=== PATIENT | male | born 1985 | race Caucasian/White ===

== ENCOUNTER 2020-07-08 20:37 | Emergency (ER) | payer OTHER, SELFPAY ==
[2020-07-08 21:06] VITALS: BP 157/91; PULSE 106; RESP 18; TEMP 37.1; O2SAT 99; BMI 38.5
[2020-07-08 21:39] LABS: MANUAL DIFF FLAG NO
[2020-07-08 21:40] LABS: Basophils Absolute Auto 0.1 X10*3/uL (0.0-0.2); Basophils Percent Auto 0.6 % (0-2); Eosinophils Absolute Auto 0.5 X10*3/uL (0.0-0.4); Eosinophils Percent Auto 4.5 % (0-4); Hematocrit 46.3 % (42-52); Imm Gran Abs Auto 0.05 X10*3/uL (0.00-0.03); Imm Gran Pct Auto 0.5 % (0.0-0.4); Lymphocytes Absolute Auto 2.5 X10*3/uL (1.2-4.9); Lymphocytes Percent Auto 24.6 % (20-40); Mean Corpuscular HGB Conc 32.4 g/dl (31.0-36.0); Mean Corpuscular Hemoglobin 27.7 pg (27.0-33.0); Mean Corpuscular Volume 85.4 fL (80-98); Mean Platelet Volume 9.4 fL (9.4-12.4); Monocytes Absolute Auto 0.7 X10*3/uL (0.1-1.2); Monocytes Percent Auto 7.1 % (2-11); Neutrophils Absolute Auto 6.3 X10*3/uL (2.0-8.3); Neutrophils Percent Auto 62.7 % (45-73); Platelet Count 401 X10*3/uL (160-400); Red Blood Count 5.42 X10*6/uL (4.60-5.80); Red Cell Distribution Width 13.3 % (11.0-16.0); White Blood Count 10.1 X10*3/uL (4.8-10.8)
[2020-07-08 21:59] LABS: Anion Gap 16 (12-20); Blood Urea Nitrogen 12 mg/dL (9-16); Calcium 9.3 mg/dL (8.4-10.2); Carbon Dioxide 23 mmol/L (22-29); Chloride 101 mmol/L (96-108); Creatinine Clr Calc Pharmacy 191.5; Estimated Glomerular Filt Rate > 60; Glucose Random 103 mg/dL (60-115); Potassium 4.2 mmol/L (3.3-5.1); Sodium 136 mmol/L (135-145)
[2020-07-08 22:02] VITALS: BP 164/100; PULSE 109; RESP 16; TEMP 36.8; O2SAT 96
--- NOTE | 2020-07-08 22:25 | ED.SKABFB ---
HPI - Skin/Abscess/Foreign Bdy General Chief complaint: Skin/Abscess/Foreign Body Stated complaint: ABSCESS? Source: patient Mode of arrival: ambulatory Limitations: no limitations History of Present Illness HPI narrative: 34-year-old male with no significant past medical history presents with a growth on the back of his neck. States is growth started approximately 2 and half to 3 weeks ago, is painful, and bleeds. He does not report any trauma, wounds, and has not had any skin problems. MD complaint: lesion Onset (ago): week(s) (Approximately 3 weeks) Tetanus up to date: yes Location: neck Severity: mild Quality: burning Pain Consistency: constant Exacerbating factors: none Associated symptoms: denies other symptoms Treatments prior to arrival: bandages Related Data Allergies Allergy/AdvReac Type Severity Reaction Status Date / Time No Known Allergies Allergy Verified 07/08/20 21:06 Review of Systems Review of Systems: Constitutional: No Fever, No Chills ENT/Mouth: No Ear Pain, No Hoarseness, No sore throat Eyes: No Eye Pain, No Swelling, No Redness, No Foreign Body Cardiovascular: No Chest Pain, No SOB Respiratory: No Cough, No Dyspnea Gastrointestinal: No Nausea, No Vomiting, No Diarrhea, No abdominal Pain Genitourinary: No Dysuria, No Hematuria Musculoskeletal: No joint pain, No Myalgias, No Joint Swelling Skin: Positive skin lesion to his neck, No Skin lacerations, No rash Neuro: No Weakness, No Numbness, No Paresthesias, No Loss of Consciousness, No Dizziness, No Headache Psych: No Anxiety/Panic, No Depression Heme/Lymph: no easy bruising, no Lymphadenopathy Endocrine: No Polyuria, No Polydipsia Yes all other systems are reviewed and are negative [facility] Past Medical History Attestation statement: The following information was validated with the patient. Source: old records reviewed Medical History ADHD Allergies Social History Social History Smoking Status: Current some day smoker Use of substances other than those prescribed or required for medical reasons: No Advance Directives: No Physical Exam Vital Signs: Vital Signs: Last Vital Signs Temp 98.3 F 07/08/20 22:02 Pulse 109 H 07/08/20 22:02 Resp 16 07/08/20 22:02 BP 164/100 H 07/08/20 22:02 Pulse Ox 96 07/08/20 22:02 Body Mass Index 38.5 Appearance: Alert. Oriented X3. No acute distress. Eyes: Pupils equal, round and reactive to light. ENT: Pharynx normal. Neck: Normal inspection. Neck supple. CVS: Normal heart rate and rhythm. Pulses normal. Respiratory: No respiratory distress. Breath sounds normal. Abdomen: Soft and nontender. Skin: Skin warm and dry. Normal skin color. Normal skin turgor. Extremities: No lower extremity edema. Neuro: No motor deficit. No sensory deficit. Course Course Course Narrative: 34-year-old male presents with a lesion to the back of his neck. This is a pedunculated growth, unknown what this could be. Will referred to surgery-dermatology. I did have Dr. Hernandez assess this wound, and he agrees with my plan not to remove this. There is no drainable abscess, and patient is afebrile no indication of infection. Patient verbalized understanding of and agrees to plan of care discharge home. MDM - Skin/Abscess/Foreign Bdy MDM Narrative Medical decision making narrative: Skin lesion Medical Records Attestation: I reviewed the patient's medical records. Lab Data Attestation: I reviewed the patient's lab results. Result diagrams: 07/08/20 21:33 07/08/20 21:33 Labs: Lab Results 07/08/20 07/08/20 Range/Units 21:33 21:33 WBC 10.1 (4.8-10.8) X10*3/uL RBC 5.42 (4.60-5.80) X10*6/uL Hgb 15.0 (14.0-18.0) g/dl Hct 46.3 (42-52) % MCV 85.4 (80-98) fL MCH 27.7 (27.0-33.0) pg MCHC 32.4 (31.0-36.0) g/dl RDW 13.3 (11.0-16.0) % Plt Count 401 H (160-400) X10*3/uL MPV 9.4 (9.4-12.4) fL Immature Gran % (Auto) 0.5 H (0.0-0.4) % Neut % (Auto) 62.7 (45-73) % Lymph % (Auto) 24.6 (20-40) % Miller % (Auto) 7.1 (2-11) % Eos % (Auto) 4.5 H (0-4) % Baso % (Auto) 0.6 (0-2) % Lymph # (Auto) 2.5 (1.2-4.9) X10*3/uL Miller # (Auto) 0.7 (0.1-1.2) X10*3/uL Eos # (Auto) 0.5 H (0.0-0.4) X10*3/uL Baso # (Auto) 0.1 (0.0-0.2) X10*3/uL Abs Immat Gran (auto) 0.05 H (0.00-0.03) X10*3/uL Absolute Neuts (auto) 6.3 (2.0-8.3) X10*3/uL Absolute Nucleated RBC 0.000 (0.0-0.012) X10*3/uL Nucleated RBC % (auto) 0.0 (0.0-0.2) /100WBC Sodium 136 (135-145) mmol/L Potassium 4.2 (3.3-5.1) mmol/L Chloride 101 (96-108) mmol/L Carbon Dioxide 23 (22-29) mmol/L Anion Gap 16 (12-20) BUN 12 (9-16) mg/dL Creatinine 0.79 (0.5-1.4) mg/dL Estim Creat Clear Calc 191.5 Estimated GFR > 60 Random Glucose 103 (60-115) mg/dL Calcium 9.3 (8.4-10.2) mg/dL Discharge Plan Discharge Clinical Impression: Skin abnormality Patient Disposition: Home, Self-Care Instructions: Skin Pseudocyst (ED), Acute Wounds (ED) Additional Instructions: You were evaluated for a wound to the back of your neck. You must follow-up with surgery Dr. Pro. Please keep the wound covered. Thank you for choosing this emergency department for evaluation. Please follow-up with primary care physician as needed. Return to the emergency department for any new, concerning, or worsening symptoms. Referrals: Jay Pro MD [Physician] - 2 days (Neck lesion) Interventions: ED Discharge Assessment Last Done: 07/08/20 23:15 Discharge Date/Time: 07/08/20 23:15
== END 2020-07-08 23:15 | disposition home or self-care (01) ==
PROVIDERS: Emergency Provider Emergency Medicine Emergency Medical Services; PCP Family Medicine
DX: L02.11 Cutaneous abscess of neck (principal); M54.2 Cervicalgia
CPT/HCPCS: 36415; 80048; 85025; 99283; 99284

== ENCOUNTER 2020-07-13 11:26 | Outpatient (REF) | payer OTHER, SELFPAY | END 2020-07-13 11:27 | disposition home or self-care (01) | LOC: HO.LNP 11:26 | PROVIDERS: PCP Family Medicine; Visit Provider Surgery | DX: L98.9 Disorder of the skin and subcutaneous tissue, unspecified (principal) | CPT/HCPCS: 11422; 99202 ==

== ENCOUNTER 2020-07-14 15:10 | Outpatient (REF) | payer OTHER, SELFPAY | END 2020-07-14 15:11 | disposition home or self-care (01) | LOC: HO.LAB 15:10 | PROVIDERS: Visit Provider Surgery | DX: L98.9 Disorder of the skin and subcutaneous tissue, unspecified (principal) | CPT/HCPCS: 88305 ==

== ENCOUNTER → 2020-07-28 15:27 | Outpatient (BNVA) | payer OTHER, SELFPAY | PROVIDERS: PCP Physician Assistant; Visit Provider Surgery ==

== ENCOUNTER 2020-08-13 09:32 | Outpatient (REF) | payer OTHER, SELFPAY ==
[2020-08-13 10:23] LABS: Hematocrit 48.9 % (42-52); Hemoglobin 15.8 g/dl (14.0-18.0); Mean Corpuscular HGB Conc 32.3 g/dl (31.0-36.0); Mean Corpuscular Hemoglobin 27.4 pg (27.0-33.0); Mean Corpuscular Volume 84.9 fL (80-98); Platelet Count 360 X10*3/uL (160-400); Red Blood Count 5.76 X10*6/uL (4.60-5.80); Red Cell Distribution Width 13.3 % (11.0-16.0); White Blood Count 6.6 X10*3/uL (4.8-10.8)
[2020-08-13 10:24] LABS: Estimated Average Glucose 105 mg/dL; Hemoglobin A1c % 5.3 %
[2020-08-13 10:58] LABS: Alanine Aminotransferase 60 U/L (0-40); Albumin Level 4.8 g/dL (3.5-5.0); Alkaline Phosphatase 93 U/L (39-117); Anion Gap 15 (12-20); Aspartate Amino Transferase 31 U/L (5-37); Bilirubin Total 0.9 mg/dL (0.0-1.0); Blood Urea Nitrogen 10 mg/dL (9-16); Calcium 9.9 mg/dL (8.4-10.2); Carbon Dioxide 25 mmol/L (22-29); Chloride 102 mmol/L (96-108); Cholesterol 185 mg/dL; Estimated Glomerular Filt Rate > 60; Glucose Fasting 89 mg/dL (60-99); HDL Cholesterol 37 mg/dL; LDL Cholesterol Calculated 127 mg/dl; Potassium 4.4 mmol/L (3.3-5.1); Sodium 138 mmol/L (135-145); Total Protein 8.1 g/dL (6.5-8.0); Triglycerides 107 mg/dL
== END 2020-08-13 09:33 | disposition home or self-care (01) ==
LOC: HO.LAB 09:32
PROVIDERS: PCP Physician Assistant; Visit Provider Physician Assistant
DX: Z13.220 Encounter for screening for lipoid disorders (principal); Z13.29 Encounter for screening for other suspected endocrine disorder; I10 Essential (primary) hypertension
CPT/HCPCS: 36415; 80053; 80061; 83036; 84443; 85027

== ENCOUNTER 2022-02-10 07:55 | Outpatient (REF) | payer OTHER, SELFPAY ==
[2022-02-10 08:15] LABS: Hematocrit 48.3 % (42.0-52.0); Hemoglobin 15.4 g/dl (14.0-18.0); Mean Corpuscular HGB Conc 31.9 g/dl (31.0-36.0); Mean Corpuscular Hemoglobin 27.5 pg (27.0-33.0); Mean Corpuscular Volume 86.1 fL (80.0-98.0); Mean Platelet Volume 9.3 fL (9.4-12.4); Platelet Count 342 X10*3/uL (160-400); Red Blood Count 5.61 X10*6/uL (4.60-5.80); White Blood Count 7.1 X10*3/uL (4.8-10.8)
[2022-02-10 08:38] LABS: Alanine Aminotransferase 36 U/L (0-40); Albumin Level 4.6 g/dL (3.5-5.0); Alkaline Phosphatase 99 U/L (39-117); Anion Gap 16 (12-20); Aspartate Amino Transferase 23 U/L (5-37); Bilirubin Direct 0.2 mg/dL (0.0-0.5); Bilirubin Total 0.4 mg/dL (0.0-1.0); Blood Urea Nitrogen 13 mg/dL (9-16); Calcium 9.5 mg/dL (8.4-10.2); Carbon Dioxide 25 mmol/L (22-29); Chloride 103 mmol/L (96-108); Cholesterol 230 mg/dL; Estimated Glomerular Filt Rate > 60; Glucose Random 92 mg/dL (60-115); HDL Cholesterol 36 mg/dL; LDL Cholesterol Calculated 154 mg/dl; Potassium 4.4 mmol/L (3.3-5.1); Sodium 140 mmol/L (135-145); Triglycerides 204 mg/dL
== END 2022-02-10 07:56 | disposition home or self-care (01) ==
LOC: HO.LAB 07:55
PROVIDERS: PCP Physician Assistant; Visit Provider Internal Medicine
DX: E66.01 Morbid (severe) obesity due to excess calories (principal); F32.9 Major depressive disorder, single episode, unspecified; I10 Essential (primary) hypertension
CPT/HCPCS: 36415; 80048; 80061; 80076; 84443; 85027

== ENCOUNTER 2022-11-09 10:33 | Outpatient (REF) | payer OTHER, SELFPAY | END 2022-11-09 10:34 | disposition home or self-care (01) | LOC: HO.HAP 10:33 | PROVIDERS: Visit Provider Physician Assistant | DX: Z46.1 Encounter for fitting and adjustment of hearing aid (principal); H90.3 Sensorineural hearing loss, bilateral | CPT/HCPCS: 92591 ==

== ENCOUNTER 2022-11-30 10:47 | Outpatient (REF) | payer OTHER, SELFPAY | END 2022-11-30 10:48 | disposition home or self-care (01) | LOC: HO.HAP 10:47 | PROVIDERS: Visit Provider Physician Assistant | DX: Z46.1 Encounter for fitting and adjustment of hearing aid (principal); H90.3 Sensorineural hearing loss, bilateral | CPT/HCPCS: 92595; V5011; V5020; V5261 ==

== ENCOUNTER 2023-05-22 08:50 | Outpatient (AMB) | payer OTHER, SELFPAY ==
[2023-05-22 08:56] VITALS: BP 124/76; PULSE 92; O2SAT 98; BMI 39.8
--- NOTE | 2023-05-22 08:56 | A.OFFPC_ITS ---
Vital Signs 05/22/23 08:56 Height 6 ft 2 in Weight 310 lb BMI 39.8 BP 124/76 Blood Pressure Location Lt brachial Position Sitting Pulse 92 Pulse Source Pulse Oximeter Pulse Oximetry (%) 98 Oxygen Delivery Method Room Air Intake Visit Reasons: f/u Hiv Prevention Specialist Required: No Rack Loader: Not Required per policy Accompanied by: Self / Same As Patient Allergies No Known Allergies Allergy (Verified 05/22/23 09:14) Medication List - Last Reconciled 05/22/23 by Erasmo Carson PA-C acetaminophen ER (Tylenol 8 Hour) 650 mg PO Q12H PRN Advair Diskus 100-50 mcg/dose (fluticasone propion-salmeterol) 1 inh inhalation BID NS albuterol sulfate 90 mcg/actuation (Ventolin HFA) 2 puffs inhalation Q4-6H PRN 30 days albuterol sulfate 0.63 mg (3 mL) inhalation QID PRN bupropion HCl 150 mg PO DAILY buspirone 10 mg PO TID cetirizine 10 mg PO DAILY PRN cholecalciferol (vitamin D3) 125 mcg PO DAILY clonidine HCl 0.1 mg PO .PRN fluoxetine 30 mg (1.5 x 20 mg) PO DAILY fluticasone propionate 50 mcg/actuation 1 spray intranasal DAILY 30 days folic acid 1 mg PO DAILY 90 days hydroxyzine HCl 100 mg (2 x 50 mg) PO ONCE PRN 30 days ibuprofen 400 mg PO Q8H melatonin 5 mg PO BEDTIME PRN montelukast (Singulair) 10 mg PO DAILY 90 days quetiapine 200 mg PO BID quetiapine 100 mg PO BEDTIME sennosides-docusate sodium 8.6-50 mg (Senna Plus) 1 tab-cap PO BEDTIME PRN 90 days simvastatin 10 mg PO DAILY Ventolin HFA 90 mcg/actuation (albuterol sulfate) 1 inh inhalation QID 30 days NS Tobacco use date assessed: 05/22/23 Dental Screening Dental Screen Date: 05/22/23 Did you have a dental visit in the last 12 months?: No Did you have a dental problem in the last 6 months where you did not have access to dental care?: No Was dental information given to patient?: Patient has dentist HPI f/u HPI Details Patient is a 37-year-old male here today for a follow-up visit.? . Patient has a past medical history significant for ADHD, PTSD, anxiety, hyperlipidemia, allergic rhinitis. .. PTSD: Is seeing a psyciatrist Dr. Anguiano home is managing his mental health medications. Has gained significant amount of weight since being on antipsychotic medication ?. HAs a nurse coming to his home and gives him his medication. . . Obesity: Patient does understand his BMI is 30 and will work on being more physically active and adapting to better eating habits to reduce his weight. .. Hyperlipidemia: Continues on low-dose statin therapy without any side effect. Will recheck his fasting lipid panel to assure appropriate total cholesterol and LDL .. Asthma: He feels his asthma is fairly well controlled though still has shortness of breath and cough worse during changes of seasons. He is now seeing ENT specialist in is doing allergy injections. Of note he has been found to have sensorineural hearing loss and now has bilateral hearing aids .. Tobacco dependency: He reports he has cut down his cigarette smoking down to 5- 10 cigarettes per day. He does understand he needs to quit smoking. He he has access to nicotine patches and gum at his respite care and is considering starting. [facility] Medical History Class 2 severe obesity with body mass index (BMI) of 35 to 39.9 with serious comorbidity Essential hypertension Major depression Skin lesion of neck Allergies ADHD Family History Father Heart disease Social History Housing: Other (Program home) Alcohol intake: current Alcohol intake frequency: a few times a month Alcohol type: beer Patient Tobacco Use Status: Current everyday Tobacco user Tobacco use type: Cigarette e-Cigarette/Vaping Use: Never Used Current occupational status: unemployed Current occupation: unemployed Cognitive needs: No Hearing needs: No Vision needs: No Questionnaire PHQ-9 Over the last 2 weeks, how often have you been bothered by any of the following problems? 1. Little interest or pleasure in doing things: not at all 2. Feeling down, depressed, or hopeless: not at all 3. Trouble falling or staying asleep, or sleeping too much: not at all 4. Feeling tired or having little energy: not at all 5. Poor appetite or overeating: not at all 6. Feeling bad about yourself - or that you are a failure or have let yourself or your family down: not at all 7. Trouble concentrating on things, such as reading the newspaper or watching television: not at all 8. Moving or speaking so slowly that other people could have noticed. Or the opposite - being so fidgety or restless that you have been moving around a lot more than usual: not at all 9. Thoughts that you would be better off or of hurting yourself in some way: not at all Total score: 0 Depression Screening Interpretation: Negative Depression Screening Done: Yes 20410 - PHQ-9 Billing: Yes Source: Developed by Drs. Joon Castillo, Clau Mccullough, Ruben Barfield and colleagues, with an educational dwayne from [employer]. Thrive Questionnaire Date Thrive assessed: 05/22/23 I am a: Patient What is your living situation today?: I have a steady place to live Within the past 12 months, did the food you bought not last and you didn't have the money to get more?: Never true Within the past 12 months, did you worry whether your food would run out before you got money to buy more?: Never true Do you have trouble paying for medicines?: No Do you have trouble getting transportation to medical appointments?: No Do you have trouble paying your heating and electricity bill?: No Do you have trouble taking care of your child, family member or friend?: No Do you have trouble with day-to-day activities such as bathing, preparing meals, shopping, managing finances, etc.?: No Are you currently unemployed and looking for a job?: No Are you interested in more education?: No THRIVE Score: 0 AUDIT C Alcohol Use Questionnaire (AUDIT-C) 1. How often do you have a drink containing alcohol?: Monthly or less (0) 2. How many drinks containing alcohol do you have on a typical day when you are drinking?: 1 or 2 3. How often do you have six or more drinks on one occasion?: Never Total Score: 1 COLIN-7 AMB Questionnaire COLIN-7 Date COLIN - 7 assessed: 05/22/23 Feeling nervous, anxious, or on edge: 0 = Not at all Not being able to stop or control worryin = Several days Worrying too much about different things: 1 = Several days Trouble relaxin = Not at all Being so restless that it is hard to sit still: 0 = Not at all Becoming easily annoyed or irritable: 0 = Not at all Feeling afraid as if something awful might happen: 0 = Not at all Total COLIN-7 score (0-4 normal; 5-9 mild; 10-14 moderate; 15-21 severe): 2 Source: Developed by Drs. Joon Castillo, Clau Mccullough, Ruben Barfield and colleagues, with an educational dwayne from [employer]. COLIN-7 Assessment Billing COLIN-7 Assessment Tool: COLIN-7 Assessment 64189 ACT Questionnaire In the past 4 weeks, how much of the time did your asthma keep you from getting as much done at work, school or at home?: None of the time During the past 4 weeks, how often have you had shortness of breath?: Not at all During the past 4 weeks, how often did your asthma symptoms wake you up at night or earlier than usual in the morning?: Not at all During the past 4 weeks, how often have you had to use your rescue inhaler or nebulizer medication?: Not at all How would you rate your asthma control during the past 4 weeks?: Completely controlled ACT Interpretation: Negative Score: 25 Review of Systems Const Denies headache(s) Eyes Denies loss of vision ENT Denies vertigo, Denies dizziness, Denies headache(s) and Denies sore throat Card Denies chest pain, Denies leg edema and Denies lightheadedness Resp Denies cough, Denies hemoptysis and Denies wheezing GI Denies abdominal pain, Denies melena, Denies constipation, Denies diarrhea and Denies vomiting Denies dysuria, Denies urinary frequency and Denies urinary urgency Musc Denies arthralgias, Denies joint swelling, Denies numbness and Denies tingling Neuro Denies Abnormal speech present, Denies behavioral changes, Denies vertigo, Denies dizziness, Denies headache(s), Denies loss of vision, Denies memory loss, Denies numbness and Denies tingling Psych Denies anxiety, Denies behavioral changes, Denies depression, Denies memory loss and Denies panic attacks Jacob/Lymph Denies easy bleeding and Denies easy bruising Aller/Immun Denies wheezing Physical exam (Primary Care) Vital Signs: Last Vital Signs Pulse 92 05/22/23 08:56 BP 124/76 05/22/23 08:56 Pulse Ox 98 05/22/23 08:56 Oxygen Delivery Method Room Air 05/22/23 08:56 BMI result Body Mass Index 39.8 BMI Assessment/Plan discussion: High Tobacco/Smoking Status: Tobacco use Status Tobacco use date assessed 05/22/23 05/22/23 08:57 Patient Tobacco Use Status Current everyday Tobacco 05/22/23 08:57 Tobacco use type Cigarette 05/22/23 08:57 e-Cigarette/Vaping Use Never Used 05/22/23 08:57 Are you ready to quit: Yes Tobacco cessation counseling provided: Yes Items discussed: Nicotine replacement Relapse Prevention: discussed the importance of a supportive environment, discussed negative mood or depression after quitting, weight gain after smoking is common and discussed dietary, exercise and/or lifestyle changes Number of minutes spent counselin CPT code: 02486 - 4-10 Minutes PHQ-9: PHQ-9 Score PHQ-9: Total score 0 05/22/23 08:57 Depression Screening Interpretation: Negative Thrive Assessment: Date of Thrive Assessment Date Thrive assessed 05/22/23 05/22/23 08:57 Const General: healthy appearing, no acute distress, alert and awake Nutritional Appearance: well nourished Orientation/consciousness: oriented to person, oriented to place and oriented to time HENMT Ears: TM's normal bilaterally General nose exam: Normal nasal mucous membranes and turbinates present Eyes Conjunctivae: conjunctivae normal Sclerae: sclerae normal Pupils: Equal, round and reactive pupils present Neck Neck: Yes no lymphadenopathy and Yes no JVD Thyroid: Thyroid normal Carotids: no bruits Resp Effort & Inspection: normal respiratory effort and not tachypneic Auscultation: no crackles, no rales, no rhonchi and no wheezes Cardio Rate: regular rate Rhythm: regular rhythm Heart sounds: no murmurs and normal S1 and S2 GI Palpation (GI): Soft to palpation, nontender, no hepatomegaly and no splenomegaly Auscultation: normal bowel sounds Skin General skin exam: no rashes or lesions noted and dry skin Neuro General: oriented to person, oriented to place and oriented to time Cranial nerves: Yes Equal, round and reactive pupils present Speech: No Abnormal speech present Gait exam (Neuro): Normal gait present Motor exam (neuro): no tremor noted Extrem Right upper extremity: full ROM Left upper extremity: full ROM Right lower extremity: full ROM; no edema Left lower extremity: full ROM; no edema Psych Mental Status: mental status grossly normal Speech and movement: Normal speech and movement present Affect: normal affect Attitude: cooperative Thought process: Normal thought process present Assessment and Plan Assessment & Plan (1) HLD (hyperlipidemia): Code(s): E78.5 - Hyperlipidemia, unspecified Qualifiers: Hyperlipidemia type: mixed hyperlipidemia Qualified Code(s): E78.2 - Mixed hyperlipidemia Plan: Continue on simvastatin 10 mg daily. Will patient's fasting lipid panel to assure appropriate total cholesterol and LDL. Goal LDL to be below 130 (2) Asthma: Code(s): J45.909 - Unspecified asthma, uncomplicated Qualifiers: Asthma severity: moderate Asthma persistence: persistent Asthma complication type: uncomplicated Qualified Code(s): J45.40 - Moderate persistent asthma, uncomplicated Plan: Albuterol inhaler and nebulizers refilled. Now followed by an food service director and getting allergy injections. Singular 10 mg daily prescribed. Follow-up with pulmonology in September. (3) Major depression: Code(s): F32.9 - Major depressive disorder, single episode, unspecified Qualifiers: Major depression recurrence: recurrent Active/Remission status: currently active Major depression episode severity: moderate Qualified Code(s): F33.1 - Major depressive disorder, recurrent, moderate Plan: Continue to follow with psychiatry (Dr. Anguiano). He feels his mental health is stable (4) Obese: Code(s): E66.9 - Obesity, unspecified Qualifiers: Obesity type: due to excess calories Obesity classification: adult class 2 (BMI 35 - 39.9) Serious obesity comorbidity presence: without serious comorbidity Body mass index: BMI 36.0-36.9 Qualified Code(s): E66.09 - Other obesity due to excess calories; Z68.36 - Body mass index [BMI] 36.0-36.9, adult Plan: Patient does understand his BMI is well over 30 will work on trying to be more physically active and adapting to better eating habits to reduce his weight (5) Tobacco dependence: Code(s): F17.200 - Nicotine dependence, unspecified, uncomplicated Plan: Patient does understand he needs to quit smoking. He is interested in nicotine gum to help him quit. Orders: Orders Lipid Panel Today E78.2 - Mixed hyperlipidemia Microalbumin, Random (w Creat) Today I10 - Essential (primary) hypertension Comprehensive [place]. Panel Fast Today E78.2 - Mixed hyperlipidemia Complete Blood Count no Diff Today I10 - Essential (primary) hypertension Medications: New nicotine (polacrilex) 2 mg buccal Q2H 15 days PRN 110 ea 1RF nicotine cravings F17.200 - Nicotine dependence, unspecified, uncomplicated Coding Level of Care Code Est Pt Level 4 (50357) Diagnoses Mixed hyperlipidemia E78.2 Hyperlipidemia type: mixed hyperlipidemia Moderate persistent asthma without complication J45.40 Asthma severity: moderate Asthma persistence: persistent Asthma complication type: uncomplicated Moderate episode of recurrent major depressive disorder F33.1 Major depression recurrence: recurrent Active/Remission status: currently active Major depression episode severity: moderate Class 2 obesity due to excess calories without serious comorbidity with body mass index (BMI) of 36.0 to 36.9 in adult E66.09; Z68.36 Obesity type: due to excess calories Obesity classification: adult class 2 (BMI 35 - 39.9) Serious obesity comorbidity presence: without serious comorbidity Body mass index: BMI 36.0-36.9 Tobacco dependence F17.200 Additional Codes COLIN-7 Assessment Billing - COLIN-7 Assessment Tool: COLIN-7 Assessment 59026 ([id number]) Vital Signs *Quality* - CPT code: 04110 - 4-10 Minutes ([id number])
== END 2023-05-22 09:28 | disposition home or self-care (01) ==
PROVIDERS: PCP Physician Assistant; Visit Provider Physician Assistant
DX: E78.2 Mixed hyperlipidemia (principal); F33.1 Major depressive disorder, recurrent, moderate; E66.09 Other obesity due to excess calories; Z68.36 Body mass index [BMI] 36.0-36.9, adult; F17.210 Nicotine dependence, cigarettes, uncomplicated; J45.40 Moderate persistent asthma, uncomplicated
CPT/HCPCS: 99214; 99406

== ENCOUNTER 2023-06-05 08:53 | Outpatient (REF) | payer OTHER, SELFPAY ==
[2023-06-05 09:50] LABS: Hematocrit 45.3 % (42.0-52.0); Hemoglobin 15.1 g/dl (14.0-18.0); Mean Corpuscular HGB Conc 33.3 g/dl (31.0-36.0); Mean Corpuscular Hemoglobin 27.4 pg (27.0-33.0); Mean Corpuscular Volume 82.1 fL (80.0-98.0); Mean Platelet Volume 9.9 fL (9.4-12.4); Platelet Count 313 X10*3/uL (160-400); Red Blood Count 5.52 X10*6/uL (4.60-5.80); Red Cell Distribution Width 14.7 % (11.0-16.0); White Blood Count 7.3 X10*3/uL (4.8-10.8)
[2023-06-05 10:48] LABS: Alanine Aminotransferase 45 U/L (0-40); Albumin Level 4.3 g/dL (3.5-5.0); Alkaline Phosphatase 105 U/L (39-117); Anion Gap 13 (12-20); Aspartate Amino Transferase 28 U/L (5-37); Bilirubin Total 0.3 mg/dL (0.0-1.0); Blood Urea Nitrogen 18 mg/dL (9-16); Calcium 9.1 mg/dL (8.4-10.2); Carbon Dioxide 24 mmol/L (22-29); Chloride 107 mmol/L (96-108); Cholesterol 183 mg/dL (<200); Estimated Glomerular Filt Rate > 60; Glucose Fasting 102 mg/dL (60-99); HDL Cholesterol 37 mg/dL (>40); LDL Cholesterol Calculated 125 mg/dL (<100); Potassium 4.1 mmol/L (3.3-5.1); Sodium 140 mmol/L (135-145); Total Protein 7.9 g/dL (6.5-8.0); Triglycerides 107 mg/dL (<150)
[2023-06-05 11:23] LABS: Creatinine Urine 214.36 mg/dL; Microalbum/Creatinine Ratio Ur 45.7 ug/mg cr (<30)
== END 2023-06-05 08:54 | disposition home or self-care (01) ==
LOC: HO.LAB 08:53
PROVIDERS: PCP Physician Assistant; Visit Provider Physician Assistant
DX: I10 Essential (primary) hypertension (principal); E78.2 Mixed hyperlipidemia
CPT/HCPCS: 36415; 80053; 80061; 82043; 82570; 85027

== ENCOUNTER 2023-11-21 13:14 | Outpatient (REF) | payer OTHER, SELFPAY | END 2023-11-21 13:15 | disposition home or self-care (01) | LOC: HO.HAP 13:14 | PROVIDERS: Visit Provider Physician Assistant | DX: Z13.89 Encounter for screening for other disorder (principal) ==

== ENCOUNTER 2023-12-01 13:46 | Outpatient (REF) | payer OTHER, SELFPAY | END 2023-12-01 13:47 | disposition home or self-care (01) | LOC: HO.HAP 13:46 | PROVIDERS: Visit Provider Physician Assistant | DX: Z13.89 Encounter for screening for other disorder (principal) ==

== ENCOUNTER 2024-06-27 13:49 | Outpatient (AMB) | payer OTHER, SELFPAY ==
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
[2024-06-27 14:26] VITALS: BP 150/92; PULSE 116; TEMP 36.2; O2SAT 97; BMI 39.2
--- OUTSIDE RECORDS SUMMARY | 2024-06-27 16:29 | XMS_ITS | Continuity of Care Document ---
Author Organization [place] [facility], Allergy Address [address] [address] Care Team Providers Care Respiratory Therapist Assistant Name Role Phone EBONY CASSANDRA Primary Care Provider [phone] Assessment Encounter Date Assessment Date Assessment LastModified by Organization Details LastModified Time 06/12/2024 06/12/2024 Visit With: Cortes Walsh RN Use of Antihistamine s: No If yes: Vial Test Change in medications: No If yes ? ? ? Increase in asthma symptoms No Asthma Hx If yes, inhaler use: Reaction to last injections: No If yes: ? ? ? Allergy Symptoms: Other: ? ? ? Missed: Dose Aware of Vial Test Notes:? ? ? [email or web address] Not available 06/12/2024 14:46:18 Plan of Treatment Reminders Order Date Submit Date Provider Last Modified By Organization Details Last Modified Time Details Appointments [facility]- Allergy f-up 6mon 2024 01:00P M BEN QUIGLEY PA-C Not available Not available Not available Lab None recorded . Referral None recorded . Procedures None recorded . Surgeries None recorded . Imaging None recorded . Medication Orders None recorded . Patient TargetsNo targets recorded. Patient InstructionsNo instructions recorded. Reason for Referral None Reported. Problems Name Problem SNOMED Code Status Onset Date Resolution Date Notes Provider Name and Address Organization Details Recorded Time Allergic rhinitis 46800139 Active 2023 Allergic rhinitis: Due to other allergen; Note: Date Diagnosed : 04/26/2023 2:23 PM (477.8) Note: Date Diagnosed : 04/26/2023 2:23 PM (477.8) Allergi c rhinitis: Due to other allergen; Note: Date Diagnosed : 04/19/2023 1:21 PM (477.8) Note: Date Diagnosed : 04/19/2023 1:21 PM (477.8) ; Start Date : 4 Allergi c rhinitis: Due to other allergen; Note: Date Diagnosed : 04/12/2023 1:33 PM (477.8) Note: Date Diagnosed : 04/12/2023 1:33 PM (477.8) ; Start Date : 4 Allergi c rhinitis: Due to other allergen; Note: Date Diagnosed : 3 1:12 PM (477.8) Note: Date Diagnosed : 3 1:12 PM (477.8) ; Start Date : 3 Allergi c rhinitis: Due to other allergen; Note: Date Diagnosed : 1:16 PM (477.8) Note: Date Diagnosed : 3 1:16 PM (477.8) ; Start Date : 3 Allergi c rhinitis: Due to other allergen; Note: Date Diagnosed : 1:20 PM (477.8) Note: Date Diagnosed : 3 1:20 PM (477.8) ; Start Date : 3 Allergi c rhinitis: Due to other allergen; Note: Date Diagnosed : 03/15/2023 9:43 AM (477.8) Note: Date Diagnosed : 03/15/2023 9:43 AM (477.8) ; Start Date : 3 Allergi c rhinitis: Due to other allergen; Note: Date Diagnosed : 10:26 AM (477.8) Note: Date Diagnosed : 3 10:26 AM (477.8) ; Start Date : 3 Allergi c rhinitis: Due to other allergen; Note: Date Diagnosed : 11:24 AM (477.8) Note: Date Diagnosed : 3 11:24 AM (477.8) ; Start Date : 3 Allergi c rhinitis: Due to other allergen; Note: Date Diagnosed : 3 9:49 AM (477.8) Note: Date Diagnosed : 3 9:49 AM (477.8) ; Start Date : 3 Allergi c rhinitis: Due to other allergen; Note: Date Diagnosed : 02/14/2023 1:38 PM (477.8) Note: Date Diagnosed : 02/14/2023 1:38 PM (477.8) ; Start Date : 3 Allergi c rhinitis: Due to other allergen; Note: Date Diagnosed : 3 3:39 PM (477.8) Note: Date Diagnosed : 3 3:39 PM (477.8) ; Start Date : 3 Perenni al allergic rhinitis; Note: Date Diagnosed : 01/13/2023 9:39 AM (J30.89) Note: Date Diagnosed : 01/13/2023 9:39 AM (J30.89) ; Start Date : 3 Not Available [facility] 4 01:14:26 Chronic rhinitis [id number] Active 2022 Chronic rhinitis; Note: Date Diagnosed : 06/09/2022 10:57 AM (J31.0) Not Available [facility] 4 03:02:25 Sensorine ural hearing loss of bilateral ears 140894392 Active 2022 Sensorine ural hearing loss, bilateral ; Note: Date Diagnosed : 09/16/2022 10:23 AM (H90.3) Not Available [facility] 4 03:02:25 Snoring 98376505 Active 2022 Snoring; Note: Date Diagnosed : 06/09/2022 10:57 AM (R06.83) Not Available [facility] 4 03:02:26 Bilateral tinnitus [id number] 02 Active 2022 Tinnitus, bilateral ; Note: Date Diagnosed : 06/09/2022 10:57 AM (H93.13) Not Available [facility] 4 03:02:24 Perennial allergic rhinitis 384680725 Active 2023 CORTES WALSH RN [address] [place] [address], [facility] [place], [address] , [place] [facility] 13:45:34 Problem Notes None recorded. Procedures Surgical History Date Name Laterality Status Provider Name and Address Organization Details Recorded Time 06/27/19 25 Allergy Immunotherapy Injections completed SWATI LARA [address], [address], [place] [facility] 06/26/2024 13:07:30 06/20/19 25 Allergy Immunotherapy Injections completed SWATI LARA [address], [address], [place] [facility] 06/19/2024 13:47:43 06/13/19 25 Allergy Immunotherapy Injections completed CORTES WALSH RN [address],[place] [address] [place] [address], [phone], [facility] - [facility] 06/12/2024 14:46:09 06/05/19 25 Allergy Immunotherapy Injections completed SWATI BERGER [address],[place] [address] [place] [address], [address], [place] [facility] 06/05/2024 14:29:22 05/29/19 25 Allergy Immunotherapy Injections completed SONJA OH RMReji [address],[place] [address] [place] [address], [address], [place] [facility] 05/29/2024 13:53:39 05/22/19 25 Allergy Immunotherapy Injections completed CORTES WALSH RN [address] [facility] [place] [address] [place] [address], [address], [place] [facility] 05/22/2024 13:38:06 05/15/19 25 Allergy Immunotherapy Injections completed SWATI LARA [address], [address], [place] [facility] 05/15/2024 14:30:43 05/08/19 25 Allergy Immunotherapy Injections completed SWATI BERGER [address], [place], [address], [place] [facility] 05/08/2024 13:52:53 05/01/19 25 Allergy Immunotherapy Injections completed CORTES WALSH RN [address], [place], [address], [place] [facility] 05/01/2024 13:58:22 04/26/19 25 Allergy Immunotherapy Injections completed CORTES WALSH RN [address], [place], [address], [place] [facility] 04/26/2024 14:09:06 04/17/19 25 Allergy Immunotherapy Injections completed SONJA OH, RMA [address], [place], [address], [place] [facility] 04/17/2024 14:52:46 04/12/19 25 Allergy Immunotherapy Injections completed SONJA OH, RMA [address], [place], [address], [place] [facility] 04/12/2024 14:15:27 04/05/20 24 Allergy Immunotherapy Injections completed CORTES WALSH RN [address], [place], [address], [place] [facility] 04/05/2024 13:59:44 03/29/20 24 Allergy Immunotherapy Injections completed SWATI LARA [address], [place], [address], [place] [facility] 03/29/2024 12:16:50 03/20/20 24 Allergy Immunotherapy Injections completed SONJA OH RMA [address], [place], [address], [place] [facility] 03/20/2024 13:34:37 03/13/20 24 Allergy Immunotherapy Injections completed SWATI LARA [address], [place], [address], [place] [facility] 03/13/2024 13:26:42 03/06/20 24 Allergy Immunotherapy Injections completed SONJA OH RMA [address], [place], [address], [place] [facility] 03/06/2024 13:00:43 02/28/20 24 Allergy Immunotherapy Injections completed CORTES WALSH RN [address], [place], [address], [place] [facility] 02/28/2024 13:24:24 02/22/20 24 Allergy Immunotherapy Injections completed SWATI LARA [address], [place], [address], [place] [facility] 02/22/2024 13:21:07 02/14/20 24 Allergy Immunotherapy Injections completed SWATI LARA [address], [place], [address], [place] [facility] 02/14/2024 13:52:18 02/07/20 24 Allergy Immunotherapy Injections completed SWATI BERGER [address], [address], [place] [facility] 02/07/2024 15:09:57 01/31/20 24 Allergy Immunotherapy Injections completed CORTES WALSH RN [address], [place], [address], [place] [facility] 01/31/2024 14:53:00 01/24/20 24 Allergy Immunotherapy Injections completed SWATI LARA [address],[place] [place] [address], [address], [place] [facility] 01/24/2024 13:50:01 01/17/20 24 Allergy Immunotherapy Injections completed CORTES WALSH RN [address] [facility] [place],[address] [address] [place] [address], [address], [place] [facility] 01/17/2024 13:32:44 01/10/20 24 Allergy Immunotherapy Injections completed SONJA OH RMReji [address], [place], [address], [place] [facility] 01/10/2024 14:22:39 01/03/20 24 Allergy Immunotherapy Injections completed SWATI LARA [address], [place], [address], [place] [facility] 01/03/2024 13:05:53 12/27/19 24 Allergy Immunotherapy Injections completed SWATI LARA [address], [place], [address], [place] [facility] 12/27/2023 13:24:25 12/20/19 24 Allergy Immunotherapy Injections completed CORTES WALSH RN [address], [place], [address], [place] [facility] 12/20/2023 14:39:13 12/14/19 24 Allergy Immunotherapy Injections completed CORTES WALSH RN [address], [place], [address], [place] [facility] 12/14/2023 13:59:07 12/06/19 24 Allergy Immunotherapy Injections completed SWATI LARA [address], [place], [address], [place] [facility] 12/06/2023 13:42:56 11/29/19 24 Allergy Immunotherapy Injections completed CORTES WALSH RN [address],[place] [address] [place] [address], [address], [place] [facility] 11/29/2023 16:38:38 11/22/19 24 Allergy Immunotherapy Injections completed SWATI LARA [address], [place], [address], [place] [facility] 11/22/2023 13:41:22 11/15/19 24 Allergy Immunotherapy Injections completed SWATI BERGER [address], [place], [address], [place] [facility] 11/15/2023 13:10:48 11/08/19 24 Allergy Immunotherapy Injections completed SWATI BERGER [address], [place], [address], [place] [facility] 11/08/2023 13:18:59 11/01/19 24 Allergy Immunotherapy Injections completed CORTES WALSH RN [address], [place], [address], [place] [facility] 11/01/2023 13:24:50 10/25/19 24 Allergy Immunotherapy Injections completed CORTES WALSH RN [address], [place], [address], [place] [facility] 10/25/2023 13:51:27 10/18/19 24 Allergy Immunotherapy Injections completed CORTES WALSH RN [address], [place], [address], [place] [facility] 10/18/2023 16:21:59 10/11/19 24 Allergy Immunotherapy Injections completed CORTES WALSH RN [address], [place], [address], [place] [facility] 10/11/2023 13:54:23 10/04/19 24 Allergy Immunotherapy Injections completed SWATI LARA [address], [place], [address], [place] [facility] 10/04/2023 13:16:19 09/20/19 24 Allergy Immunotherapy Injections completed SWATI BERGER [address], [place], [address], [place] [facility] 09/20/2023 13:05:19 09/13/19 24 Allergy Immunotherapy Injections completed SWATI LARA [address], [place], [address], [place] [facility] 09/13/2023 13:26:32 09/06/19 24 Allergy Immunotherapy Injections completed SWATI LARA [address], [place], [address], [place] [facility] 09/06/2023 13:07:18 08/30/19 24 Allergy Immunotherapy Injections completed SWATI LARA [address], [place], [address], [place] [facility] 08/30/2023 13:10:22 08/23/19 24 Allergy Immunotherapy Injections completed CORTES WALSH RN [address], [place], [address], [place] [facility] 08/23/2023 13:46:59 Imaging Results None recorded. Procedure Notes None recorded. Medical Equipment None Reported. Medications Name Sig Start Date Stop Date Status Note LastModified by Organization Details LastModified Time albuterol sulfate 0.63 mg/3 mL solution for nebulizat ion INHALE 1 VIAL PER NEBULIZE R BY MOUTH 4 TIMES A DAY NEEDED FOR SHORTNES S OF BREATH OR WHEEZING active Not Available Not Available No t Available bupropion HCl SR 150 mg tablet,12 hr sustained -release 06/09 completed Medicati on ID: [id number] B rand Name: bupropio n HCl Send Method: E-Prescr ibed Sub s Allowed: subs OK Medic ationGen ericName : bupropio n HCl Not Available Not Available Not Available clonidine HCl 0.1 mg tablet TAKE 1 TABLET BY MOUTH EVERY DAY NEEDED active Not Available Not Available No t Available prednison e 10 mg tablet 06/09 completed Medicati on ID: [id number] B rand Name: predniso ne Send Method: E-Prescr ibed Sub s Allowed: subs OK Medic ationGen ericName : predniso ne Not Available Not Available Not Available nicotine 14 mg/24 hr daily transderm al patch 06/09 completed Medicati on ID: [id number] B rand Name: nicotine Send Method: E-Prescr ibed Sub s Allowed: subs OK Medic ationGen ericName : nicotine Not Available Not Available Not Available haloperid ol 5 mg tablet active Not Available Not Available Not Available cetirizin e 10 mg tablet TAKE 1 TABLET BY MOUTH EVERY DAY NEEDED FOR ALLERGY active Not Available Not Available No t Available nicotine (polacril ex) 2 mg gum TAKE 2 MG BUCCALLY EVERY 2 HOURS NEEDED FOR NICOTINE CRAVINGS FOR 15 DAYS active Not Available Not Available No t Available lisinopri l 20 mg tablet 06/09 completed Medicati on ID: [id number] B rand Name: lisinopr il Send Method: E-Prescr ibed Sub s Allowed: subs OK Speci al Instruct ion: TAKE 1 TABLET BY MOUTH AT BEDTIME Medicati onGeneri cName: lisinopr il Not Available Not Available Not Available simvastat in 10 mg tablet TAKE 1 TABLET BY MOUTH EVERY DAY active Not Available Not Available No t Available quetiapin e 200 mg tablet TAKE 1 TABLET BY MOUTH TWICE A DAY active Not Available Not Available No t Available Milk of Magnesia 400 mg/5 mL oral suspensio n 06/09 completed Medicati on ID: [id number] B rand Name: Milk of Magnesia Send Method: E-Prescr ibed Sub s Allowed: subs OK Speci al Instruct ion: USE 30ML BY MOUTH EVERY SIX HOURS DYSPEPSI A Medica tionGene ricName: Milk of Magnesia Not Available Not Available Not Available Advair Diskus 100 mcg-50 mcg/dose powder for inhalatio n TAKE 1 PUFF BY MOUTH TWICE A DAY active Not Available Not Available No t Available hydroxyzi ne HCl 50 mg tablet TAKE ONE (1) TABLET BY MOUTH ONCE A DAY, NEEDED FOR ANXIETY active Not Available Not Available No t Available quetiapin e 100 mg tablet TAKE ONE (1) TABLET BY MOUTH EVERY AFTERNOO N active Not Available Not Available No t Available prazosin 5 mg capsule 06/09 completed Medicati on ID: [id number] B rand Name: prazosin Send Method: E-Prescr ibed Sub s Allowed: subs OK Medic ationGen ericName : prazosin Not Available Not Available Not Available ziprasido ne 20 mg capsule TAKE 1 CAPSULE BY MOUTH TWICE A DAY active Not Available Not Available No t Available lorazepam 0.5 mg tablet TAKE ONE (1) TABLET BY MOUTH TWICE A DAY, NEEDED FOR ANXIETY OR INSOMNIA active Not Available Not Available No t Available pantopraz ole 40 mg tablet,de layed release 06/09 completed Medicati on ID: [id number] B rand Name: pantopra zole Sen d Method: E-Prescr ibed Sub s Allowed: subs OK Medic ationGen ericName : pantopra zole Not Available Not Available Not Available buspirone 30 mg tablet TAKE 1 TABLET BY MOUTH TWICE A DAY active Not Available Not Available No t Available buspirone 10 mg tablet TAKE 1 TABLET BY MOUTH THREE TIMES A DAY active Not Available Not Available No t Available lisinopri l 10 mg tablet 06/09 completed Medicati on ID: [id number] B rand Name: lisinopr il Send Method: E-Prescr ibed Sub s Allowed: subs OK Medic ationGen ericName : lisinopr il Not Available Not Available Not Available nicotine 21 mg/24 hr daily transderm al patch 06/09 completed Medicati on ID: [id number] B rand Name: nicotine Send Method: E-Prescr ibed Sub s Allowed: subs OK Speci al Instruct ion: APPLY 1 PATCH EVERY DAY DIRECTED Medicat ionGener icName: nicotine Not Available Not Available Not Available fluoxetin e 10 mg capsule TAKE 1 CAPSULE BY MOUTH EVERY DAY active Not Available Not Available No t Available Advair Diskus 500 mcg-50 mcg/dose powder for inhalatio n INHALE 1 PUFF BY MOUTH TWICE A DAY (RINSE MOUTH AND THROAT AFTER USE) active Not Available Not Available No t Available folic acid 1 mg tablet TAKE 1 TABLET BY MOUTH EVERY DAY active Not Available Not Available No t Available monteluka st 10 mg tablet TAKE 1 TABLET BY MOUTH EVERY DAY FOR 90 DAYS active Not Available Not Available No t Available epinephri ne 0.3 mg/0.3 mL injection , auto-inje ctor ADMINIST ER 1 PEN INJECTOR SUBCUTAN EOUSLY SINGLE DOSE NEEDED active Not Available Not Available No t Available Vitamin D2 1,250 mcg (50,000 unit) capsule 06/09 completed Medicati on ID: [id number] B rand Name: Vitamin D2 Send Method: E-Prescr ibed Sub s Allowed: subs OK Medic ationGen ericName : Vitamin D2 Not Available Not Available Not Available fluoxetin e 20 mg capsule TAKE 1 CAPSULE BY MOUTH EVERY DAY active Not Available Not Available No t Available fluticaso ne propionat e 50 mcg/actua tion nasal spray,chip pension USE 1 SPRAY INTRANAS ALLY DAILY FOR 30 DAYS ADMINIST ER INTO EACH NOSTRIL active Not Available Not Available No t Available cholecalc iferol (vitamin D3) 125 mcg (5,000 unit) capsule TAKE 1 CAPSULE BY MOUTH EVERY DAY active Not Available Not Available No t Available prazosin 2 mg capsule 06/09 completed Medicati on ID: [id number] B rand Name: prazosin Send Method: E-Prescr ibed Sub s Allowed: subs OK Medic ationGen ericName : prazosin Not Available Not Available Not Available Vitamin B-12 1,000 mcg tablet 06/09 completed Medicati on ID: [id number] B rand Name: Vitamin B-12 Sen d Method: E-Prescr ibed Sub s Allowed: subs OK Medic ationGen ericName : Vitamin B-12 Not Available Not Available Not Available nicotine 7 mg/24 hr daily transderm al patch APPLY 1 PATCH TOPICALL Y DAILY active Not Available Not Available No t Available Ventolin HFA 90 mcg/actua tion aerosol inhaler TAKE 2 PUFFS BY MOUTH EVERY 4 HOURS NEEDED FOR WHEEZING active Not Available Not Available No t Available atomoxeti ne 40 mg capsule 06/09 completed Medicati on ID: [id number] B rand Name: atomoxet ine Send Method: E-Prescr ibed Sub s Allowed: subs OK Medic ationGen ericName : atomoxet ine Not Available Not Available Not Available atomoxeti ne 60 mg capsule TAKE 1 CAPSULE BY MOUTH EVERY DAY IN THE MORNING active Not Available Not Available No t Available nicotine (polacril ex) 2 mg buccal lozenge 06/09 completed Medicati on ID: [id number] B rand Name: nicotine (polacri cuauhtemoc) Sen d Method: E-Prescr ibed Sub s Allowed: subs OK Medic ationGen ericName : nicotine (polacri cuauhtemoc) Not Available Not Available Not Available bupropion HCl XL 300 mg 24 hr tablet, extended release TAKE 1 TABLET BY MOUTH EVERY DAY IN THE MORNING active Not Available Not Available No t Available bupropion HCl XL 150 mg 24 hr tablet, extended release TAKE 1 TABLET BY MOUTH EVERY DAY IN THE MORNING active Not Available Not Available No t Available levalbute rol HFA 45 mcg/actua tion aerosol inhaler 06/09 completed Medicati on ID: [id number] B rand Name: levalbut ale tartrate Send Method: E-Prescr ibed Sub s Allowed: subs OK Medic ationGen ericName : levalbut ale tartrate Not Available Not Available Not Available melatonin 5 mg tablet TAKE 1 TABLET BY MOUTH EVERYDAY AT BEDTIME active Not Available Not Available No t Available Senexon-S 8.6 mg-50 mg tablet TAKE 1 TABLET BY MOUTH EVERY DAY AT BEDTIME NEEDED FOR CONSTIPA TION active Not Available Not Available No t Available melatonin 10 mg capsule active Not Available Not Available Not Available High Potency Multivita min (w-iron) 9 mg iron-400 mcg tablet 06/09 completed Medicati on ID: [id number] B rand Name: High Potency Multivit (w-iron) Send Method: E-Prescr ibed Sub s Allowed: subs OK Speci al Instruct ion: TAKE 1 TABLET BY MOUTH EVERY DAY Medi cationGe nericNam e: High Potency Multivit (w-iron) Not Available Not Available Not Available Vitals None Recorded Social History None recorded. Functional Status None recorded. Mental Status None recorded. Family History Nothing Reported. Medical History No medical history recorded. Past Encounters Encounter ID Performer Location Encounter Start Date Encounter Closed Date Diagnosis/Indication Diagnosis SNOMED-CT Code Diagnosis ICD10 Code Diagnosis Note [id number] ZAK BACK MD [facility] [address] [place] [address] 05/17/2024 12:46:49 05/17/2024 13:25:42 Perennial allergic rhinitis 656072832 J30.89 Snoring [id number] R06.83 [id number] SUSANA KHANNA [address] [place] [address] 05/15/2024 14:29:21 05/15/2024 14:31:20 Perennial allergic rhinitis 106009633 J30.89 [id number] CORTES WALSH RN Allergy [address] [place] [address], [place] [address] 05/22/2024 13:37:40 05/22/2024 13:38:29 Perennial allergic rhinitis [id number] J30.89 [id number] [facility] Allergy [address] [place] [address] [place] [address] 05/29/2024 13:52:54 05/29/2024 13:54:35 Perennial allergic rhinitis [id number] J30.89 [id number] [facility] Allergy [address] [place] [address] [place] [address] 06/05/2024 14:28:09 06/05/2024 14:29:51 Perennial allergic rhinitis [id number] J30.89 [id number] CORTES WALSH RN Allergy [address] [place] [address] [place] [address] 06/12/2024 14:45:26 06/12/2024 14:50:18 Perennial allergic rhinitis 542578517 J30.89 Health Concerns Section Related Observation LastModified by Organization Detai ls LastModified Time None Recorded Concern Status LastModified by Organization Details LastModified Time None Recorded Payers Encounter Date Sequence Insurance Name Policy Number Policy Miller Covered Member ID Miller Member ID Guarantor Name 06/12/2024 1 [facility] NET PLAN (MEDICAID HMO) [id number] Luis [id number] Luis Hu
--- OUTSIDE RECORDS SUMMARY | 2024-06-27 16:29 | XMS_ITS | Continuity of Care Document ---
Author Organization [place] [facility], Allergy Address [address] [address] Care Team Providers Care Handyman Name Role Phone CASSANDRA BECK Primary Care Provider Assessment Encounter Date Assessment Date Assessment LastModified by Organization Details LastModified Time 06/26/2024 06/26/2024 Visit With: Ciara Guillory Use of Antihistamine s: No If yes: Vial Test Change in medications: No If yes ? ? ? Increase in asthma symptoms If yes, inhaler use: Reaction to last injections: No If yes: ? ? ? Allergy Symptoms: Other: ? ? ? Missed: Dose Aware of Vial Test Notes:? ? ? Not available 06/26/2024 13:07:35 Plan of Treatment Reminders Order Date Submit Date Provider Last Modified By Organization Details Last Modified Time Details Appointments [facility]- Allergy f-up 6mon 2024 01:00P M BEN [...] Address Organization Details Recorded Time Allergic rhinitis [id number] Active 2023 Allergic rhinitis: Due to other [...] 1:16 PM (477.8) Note: Date Diagnosed : 1:16 PM (477.8) ; Start Date : 3 Allergi c rhinitis: Due to other allergen; Note: Date Diagnosed : 1:20 PM (477.8) Note: Date Diagnosed : 1:20 PM (477.8) ; Start Date : [...] 11:24 AM (477.8) Note: Date Diagnosed : 11:24 AM (477.8) ; Start Date : 3 Allergi c rhinitis: Due to other allergen; Note: Date Diagnosed : 9:49 AM (477.8) Note: Date Diagnosed : [...] ; Start Date : 3 Not Available [facility] 4 01:14:26 Chronic rhinitis [id number] Active 2022 Chronic rhinitis; Note: Date Diagnosed : 06/09/2022 10:57 AM (J31.0) Not Available [facility] 4 03:02:25 Sensorine ural hearing loss of bilateral ears 602234136 Active 2022 Sensorine ural hearing loss, bilateral ; Note: Date Diagnosed : 09/16/2022 10:23 AM (H90.3) Not Available [facility] 4 03:02:25 Snoring 87791519 Active 2022 Snoring; Note: Date Diagnosed : 06/09/2022 10:57 AM (R06.83) Not Available [facility] 4 03:02:26 Bilateral tinnitus [id number] 02 Active 2022 Tinnitus, bilateral ; Note: Date Diagnosed : 06/09/2022 10:57 AM (H93.13) Not Available [facility] 4 03:02:24 Perennial allergic rhinitis 683025366 Active 2023 CORTES WALSH RN [address] [place] [address], [facility] [place], [address] , [place] [facility] 13:45:34 Problem Notes None recorded. Procedures Surgical History Date Name Laterality Status Provider Name and Address Organization Details Recorded Time 06/27/19 25 Allergy Immunotherapy Injections completed SWATI LARA [address], [place], [address], [place] [facility] 06/26/2024 13:07:30 06/20/19 25 Allergy Immunotherapy Injections completed SWATI LARA [address], [place], [address], [place] [facility] 06/19/2024 13:47:43 06/13/19 25 Allergy Immunotherapy Injections completed CORTES WALSH RN [address] [place] [address], [address], [place] [facility] 06/12/2024 14:46:09 06/05/19 25 Allergy Immunotherapy Injections completed SONJA OH RMReji [address] [place] [address], [address], [place] [facility] 06/05/2024 14:29:22 05/29/19 25 Allergy Immunotherapy Injections completed SONJA OH RMA [address], [address], [place] [facility] 05/29/2024 13:53:39 05/22/19 25 Allergy Immunotherapy Injections completed CORTES WALSH RN [address] [place] [address], [address], [place] [facility] 05/22/2024 13:38:06 05/15/19 25 Allergy Immunotherapy Injections completed SWATI LARA [address], [address], [place] [facility] 05/15/2024 14:30:43 05/08/19 25 Allergy Immunotherapy Injections completed SONJA OH RMA [address], [address], [place] [facility] 05/08/2024 13:52:53 05/01/19 25 Allergy Immunotherapy Injections completed CORTES WALSH RN [address], [place], [address], [place] [facility] 05/01/2024 13:58:22 04/26/19 25 Allergy Immunotherapy Injections completed CORTES WALSH RN [address], [place], [address], [place] [facility] 04/26/2024 14:09:06 04/17/19 25 Allergy Immunotherapy Injections completed SONJA [place], RMA [address], [place], [address], [place] [facility] 04/17/2024 14:52:46 04/12/19 25 Allergy Immunotherapy Injections completed SONJA OH, RMA [address], [place], [address], [place] [facility] 04/12/2024 14:15:27 04/05/20 24 Allergy Immunotherapy Injections completed CORTES WALSH RN [address], [place], [address], [place] [facility] 04/05/2024 13:59:44 03/29/20 24 Allergy Immunotherapy Injections completed SWATI LARA [address], [address], [place] [facility] 03/29/2024 12:16:50 03/20/20 24 Allergy Immunotherapy Injections completed SONJA OH RMA [address], [address], [place] [facility] 03/20/2024 13:34:37 03/13/20 24 Allergy Immunotherapy Injections completed SWATI LARA [address], [place], [address], [place] [facility] 03/13/2024 13:26:42 03/06/20 24 Allergy Immunotherapy Injections completed SONJA OH RMA [address], [address], [place] [facility] 03/06/2024 13:00:43 02/28/20 24 Allergy Immunotherapy Injections completed CORTES WALSH RN [address], [place], [address], [place] [facility] 02/28/2024 13:24:24 02/22/20 24 Allergy Immunotherapy Injections completed SWATI LARA [address], [place], [address], [place] [facility] 02/22/2024 13:21:07 02/14/20 24 Allergy Immunotherapy Injections completed SWATI LARA [address], [place], [address], [place] [facility] 02/14/2024 13:52:18 02/07/20 24 Allergy Immunotherapy Injections completed SWATI BERGER [address], [address], [place] [facility] 02/07/2024 15:09:57 01/31/20 24 Allergy Immunotherapy Injections completed CORTES WALSH RN [address] [place] [address], [address], [place] [facility] 01/31/2024 14:53:00 01/24/20 24 Allergy Immunotherapy Injections completed SWATI LARA [address], [address], [place] [facility] 01/24/2024 13:50:01 01/17/20 24 Allergy Immunotherapy Injections completed CORTES WALSH RN [address] [facility] [place], [address], [place] [facility] 01/17/2024 13:32:44 01/10/20 24 Allergy Immunotherapy Injections completed SONJA [place] RMReji [address], [address], [place] [facility] 01/10/2024 14:22:39 01/03/20 24 Allergy Immunotherapy Injections completed SWATI LARA [address], [address], [place] [facility] 01/03/2024 13:05:53 12/27/19 24 Allergy Immunotherapy Injections completed SWATI LARA [address], [place], [address], [place] [facility] 12/27/2023 13:24:25 12/20/19 24 Allergy Immunotherapy Injections completed CORTES WALSH RN [address], [place], [address], [place] [facility] 12/20/2023 14:39:13 12/14/19 24 Allergy Immunotherapy Injections completed CORTES WALSH RN [address], [place], [address], [place] [facility] 12/14/2023 13:59:07 12/06/19 24 Allergy Immunotherapy Injections completed SWATI LARA [address], [place], [address], [place] [facility] 12/06/2023 13:42:56 11/29/19 24 Allergy Immunotherapy Injections completed CORTES WALSH RN [address], [place], [address], [place] [facility] 11/29/2023 16:38:38 11/22/19 24 Allergy Immunotherapy Injections completed SWATI LARA [address], [address], [place] [facility] 11/22/2023 13:41:22 11/15/19 24 Allergy Immunotherapy Injections completed SWATI BERGER [address], [address], [place] [facility] 11/15/2023 13:10:48 11/08/19 24 Allergy Immunotherapy Injections completed SWATI BERGER [address], [place], [address], [place] [facility] 11/08/2023 13:18:59 11/01/19 24 Allergy Immunotherapy Injections completed CORTES WALSH RN [address], [address], [place] [facility] 11/01/2023 13:24:50 10/25/19 24 Allergy Immunotherapy Injections completed CORTES WALSH RN [address], [place], [address], [place] [facility] 10/25/2023 13:51:27 10/18/19 24 Allergy Immunotherapy Injections completed CORTES WALSH RN [address], [place], [address], [place] [facility] 10/18/2023 16:21:59 10/11/19 24 Allergy Immunotherapy Injections completed CORTES WALSH RN [address], [place], [address], [place] [facility] 10/11/2023 13:54:23 10/04/19 24 Allergy Immunotherapy Injections completed SWATI LARA [address], [address], [place] [facility] 10/04/2023 13:16:19 09/20/19 24 Allergy Immunotherapy Injections completed SWATI BERGER [address], [address], [place] [facility] 09/20/2023 13:05:19 09/13/19 24 Allergy Immunotherapy Injections completed SWATI LARA [address], [address], [place] [facility] 09/13/2023 13:26:32 09/06/19 24 Allergy Immunotherapy Injections completed SWATI LARA [address], [place], [address], [place] [facility] 09/06/2023 13:07:18 08/30/19 24 Allergy Immunotherapy Injections completed SWATI LARA [address], [address], [place] [facility] 08/30/2023 13:10:22 08/23/19 24 Allergy Immunotherapy Injections completed CORTES WALSH RN [address], [place], [address], [place] [facility] 08/23/2023 13:46:59 Imaging Results None recorded. Procedure [...] sustained -release 06/09 completed Medicati on ID: [id number] B rand Name: bupropio n HCl Send Method: E-Prescr ibed Sub s Allowed: subs OK Medic ationGen ericName : bupropio n HCl Not Available Not Available Not Available clonidine HCl 0.1 mg tablet TAKE 1 TABLET BY MOUTH EVERY DAY NEEDED active Not Available Not Available No t Available prednison e 10 mg tablet 06/09 completed Medicati on ID: [id number] B rand Name: predniso ne Send Method: E-Prescr ibed Sub s Allowed: subs OK Medic ationGen ericName : predniso ne Not Available Not Available Not Available nicotine 14 mg/24 hr daily transderm al patch 06/09 completed Medicati on ID: [id number] B rand Name: nicotine Send Method: E-Prescr [...] mg tablet 06/09 completed Medicati on ID: [id number] B rand Name: lisinopr il Send Method: [...] suspensio n 06/09 completed Medicati on ID: [id number] B rand Name: Milk of Magnesia Send [...] mg capsule 06/09 completed Medicati on ID: [id number] B rand Name: prazosin Send Method: E-Prescr [...] layed release 06/09 completed Medicati on ID: [id number] B rand Name: pantopra zole Sen d [...] mg tablet 06/09 completed Medicati on ID: [id number] B rand Name: lisinopr il Send Method: E-Prescr ibed Sub s Allowed: subs OK Medic ationGen ericName : lisinopr il Not Available Not Available Not Available nicotine 21 mg/24 hr daily transderm al patch 06/09 completed Medicati on ID: [id number] B rand Name: nicotine Send Method: E-Prescr [...] unit) capsule 06/09 completed Medicati on ID: [id number] B rand Name: Vitamin D2 Send Method: [...] mg capsule 06/09 completed Medicati on ID: [id number] B rand Name: prazosin Send Method: E-Prescr ibed Sub s Allowed: subs OK Medic ationGen ericName : prazosin Not Available Not Available Not Available Vitamin B-12 1,000 mcg tablet 06/09 completed Medicati on ID: [id number] B rand Name: Vitamin B-12 Sen d [...] mg capsule 06/09 completed Medicati on ID: [id number] B rand Name: atomoxet ine Send Method: E-Prescr ibed Sub s Allowed: subs OK Medic ationGen ericName : atomoxet ine Not Available Not Available Not Available atomoxeti ne 60 mg capsule TAKE 1 CAPSULE BY MOUTH EVERY DAY IN THE MORNING active Not Available Not Available No t Available nicotine (polacril ex) 2 mg buccal lozenge 06/09 completed Medicati on ID: [id number] B rand Name: nicotine (polacri cuauhtemoc) Sen [...] aerosol inhaler 06/09 completed Medicati on ID: [id number] B rand Name: levalbut ale tartrate Send [...] mcg tablet 06/09 completed Medicati on ID: [id number] B rand Name: High Potency Multivit (w-iron) [...] SNOMED-CT Code Diagnosis ICD10 Code Diagnosis Note [id number] SONJA WHITE [facility] Allergy [address] [place] [address],[address] [place] [address] 05/29/2024 13:52:54 05/29/2024 13:54:35 Perennial allergic rhinitis [id number] J30.89 [id number] SONJA WHITE [facility] Allergy [address] [place] [address],[address] [place] [address] 06/05/2024 14:28:09 06/05/2024 14:29:51 Perennial allergic rhinitis [id number] J30.89 [id number] CORTES WALSH RN Allergy [address] [place] [address],[address] [place] [address] 06/12/2024 14:45:26 06/12/2024 14:50:18 Perennial allergic rhinitis [id number] J30.89 [id number] SONJA WHITE, [facility] Allergy [address] [place] [address],[address] [place] [address] 06/19/2024 13:46:05 06/19/2024 13:59:57 Perennial allergic rhinitis [id number] J30.89 [id number] CIARA GUILLORY [facility] Allergy [address] [place] [address],[address] [place] [address] 06/26/2024 13:06:46 06/26/2024 13:08:13 Perennial allergic rhinitis [id number] J30.89 Health Concerns Section Related Observation LastModified by Organization Detai ls LastModified Time None Recorded Concern Status LastModified by Organization Details LastModified Time None Recorded Payers Encounter Date Sequence Insurance Name Policy Number Policy Miller Covered Member ID Miller Member ID Guarantor Name 06/26/2024 1 [facility] NET PLAN (MEDICAID HMO) FLAVIO Hu [id number] Luis Hu
--- OUTSIDE RECORDS SUMMARY | 2024-06-27 16:29 | XMS_ITS | Continuity of Care Document ---
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 ? ? Increase in asthma symptoms If yes, inhaler use: Reaction to last injections: No If yes: ? ? ? Allergy Symptoms: Other: ? ? ? Missed: Dose Aware of Vial Test Notes:? ? ? [email or web address] Not available 06/05/2024 14:29:30 Plan of Treatment Reminders Order Date Submit Date Provider Last Modified By Organization Details Last Modified Time Details Appointments [facility]- Allergy f-up 6mon 2024 01:00P M [...] Address Organization Details Recorded Time Allergic rhinitis 91422634 Active 2023 Allergic rhinitis: Due to other [...] ; Start Date : 3 Not Available [facility] 4 01:14:26 Chronic rhinitis 04981328 Active 2022 Chronic rhinitis; Note: Date Diagnosed : 06/09/2022 10:57 AM (J31.0) Not Available [facility] 4 03:02:25 Sensorine ural hearing loss of bilateral ears 730912903 Active 2022 Sensorine ural hearing loss, bilateral ; Note: Date Diagnosed : 09/16/2022 10:23 AM (H90.3) Not Available [facility] 4 03:02:25 Snoring 97731660 Active 2022 Snoring; Note: Date Diagnosed : 06/09/2022 10:57 AM (R06.83) Not Available [facility] 4 03:02:26 Bilateral tinnitus [id number] 02 Active 2022 Tinnitus, bilateral ; Note: Date Diagnosed : 06/09/2022 10:57 AM (H93.13) Not Available [facility] 4 03:02:24 Perennial allergic rhinitis 844605625 Active 2023 CORTES WALSH RN [address] [place] [address], [place], [address] , [place] [facility] 13:45:34 Problem Notes None recorded. Procedures Surgical History Date Name Laterality Status Provider Name and Address Organization Details Recorded Time 06/27/19 25 Allergy Immunotherapy Injections completed SWATI LARA [address], [place], [address], [place] [facility] 06/26/2024 13:07:30 06/20/19 25 Allergy Immunotherapy Injections completed SWATI LARA [address], [place], [address], [place] [facility] 06/19/2024 13:47:43 06/13/19 25 Allergy Immunotherapy Injections completed CORTES WALSH RN [address] [place] [address], [address], [place] [facility] 06/12/2024 14:46:09 06/05/19 25 Allergy Immunotherapy Injections completed SONJA OH RMReji [address] [place] [address], [address], [place] [facility] 06/05/2024 14:29:22 05/29/19 25 Allergy Immunotherapy Injections completed SONJA OH RMReji [address] [place] [address], [address], [place] [facility] 05/29/2024 13:53:39 05/22/19 25 Allergy Immunotherapy Injections completed CORTES WALSH RN [address] [place] [address], [address], [place] [facility] 05/22/2024 13:38:06 05/15/19 25 Allergy Immunotherapy Injections completed SWATI LARA [address], [place], [address], [place] [facility] 05/15/2024 14:30:43 05/08/19 25 Allergy Immunotherapy Injections completed SONJA OH RMReji [address], [place], [address], [place] [facility] 05/08/2024 13:52:53 05/01/19 25 Allergy Immunotherapy Injections completed CORTES WALSH RN [address], [place], [address], [place] [facility] 05/01/2024 13:58:22 04/26/19 25 Allergy Immunotherapy Injections completed CORTES WALSH RN [address], [place], [address], [place] [facility] 04/26/2024 14:09:06 04/17/19 25 Allergy Immunotherapy Injections completed SONJA OH, RMA [address], [place], [address], [place] [facility] 04/17/2024 14:52:46 04/12/19 25 Allergy Immunotherapy Injections completed SONJA OH, RMA [address], [place], [address], [place] [facility] 04/12/2024 14:15:27 04/05/20 24 Allergy Immunotherapy Injections completed CORTES WALSH RN [address], [place], [address], [place] [facility] 04/05/2024 13:59:44 03/29/20 24 Allergy Immunotherapy Injections completed SWATI LARA [address], [place], [address], [place] [facility] 03/29/2024 12:16:50 03/20/20 24 Allergy Immunotherapy Injections completed SONJA OH RMA [address], [place], [address], [place] [facility] 03/20/2024 13:34:37 03/13/20 24 Allergy Immunotherapy Injections completed SWATI LARA [address], [place], [address], [place] [facility] 03/13/2024 13:26:42 03/06/20 24 Allergy Immunotherapy Injections completed SONJA OH RMA [address], [place], [address], [place] [facility] 03/06/2024 13:00:43 02/28/20 24 Allergy Immunotherapy Injections completed CORTES WALSH RN [address], [place], [address], [place] [facility] 02/28/2024 13:24:24 02/22/20 24 Allergy Immunotherapy Injections completed SWATI LARA [address], [place], [address], [place] [facility] 02/22/2024 13:21:07 02/14/20 24 Allergy Immunotherapy Injections completed SWATI LARA [address], [place], [address], [place] [facility] 02/14/2024 13:52:18 02/07/20 24 Allergy Immunotherapy Injections completed SWATI BLANTON [address] [place] [address], [address], [place] [facility] 02/07/2024 15:09:57 01/31/20 24 Allergy Immunotherapy Injections completed CORTES WALSH RN [address] [facility] [place], [address], [place] [facility] 01/31/2024 14:53:00 01/24/20 24 Allergy Immunotherapy Injections completed SWATI LARA [address] [place] [address], [address], [place] [facility] 01/24/2024 13:50:01 01/17/20 24 Allergy Immunotherapy Injections completed CORTES WALSH RN [address] [place] [address], [address], [place] [facility] 01/17/2024 13:32:44 01/10/20 24 Allergy Immunotherapy Injections completed SONJA OH RMReji [address] [place] [address], [address], [place] [facility] 01/10/2024 14:22:39 01/03/20 24 Allergy Immunotherapy Injections completed SWATI LARA [address], [place], [address], [place] [facility] 01/03/2024 13:05:53 12/27/19 24 Allergy Immunotherapy Injections completed SWATI LARA [address], [place], [address], [place] [facility] 12/27/2023 13:24:25 12/20/19 24 Allergy Immunotherapy Injections completed CORTES WALSH RN [address], [place], [address], [place] [facility] 12/20/2023 14:39:13 12/14/19 24 Allergy Immunotherapy Injections completed CORTES WALSH RN [address], [place], [address], [place] [facility] 12/14/2023 13:59:07 12/06/19 24 Allergy Immunotherapy Injections completed SWATI LARA [address], [place], [address], [place] [facility] 12/06/2023 13:42:56 11/29/19 24 Allergy Immunotherapy Injections completed CORTES WALSH RN [address], [place], [address], [place] [facility] 11/29/2023 16:38:38 11/22/19 24 Allergy Immunotherapy Injections completed SWATI LARA [address] [place] [address], [address], [place] [facility] 11/22/2023 13:41:22 11/15/19 24 Allergy Immunotherapy Injections completed SWATI BLANTON [address], [place], [address], [place] [facility] 11/15/2023 13:10:48 11/08/19 24 Allergy Immunotherapy Injections completed SWATI BLANTON [address], [place], [address], [place] [facility] 11/08/2023 13:18:59 11/01/19 24 Allergy Immunotherapy Injections completed CORTES WALSH RN [address], [place], [address], [place] [facility] 11/01/2023 13:24:50 07/17/20 24 Allergy Immunotherapy Injections completed CORTES WALSH RN [address], [place], [address], [place] [facility] 10/25/2023 13:51:27 10/18/19 24 Allergy Immunotherapy Injections completed CORTES WALSH RN [address], [place], [address], [place] [facility] 10/18/2023 16:21:59 10/11/19 24 Allergy Immunotherapy Injections completed CORTES WALSH RN [address], [place], [address], [place] [facility] 10/11/2023 13:54:23 10/04/19 24 Allergy Immunotherapy Injections completed SWATI LARA [address] [place] [address], [address], [place] [facility] 10/04/2023 13:16:19 09/20/19 24 Allergy Immunotherapy Injections completed SWATI BLANTON [address] [place] [address], [address], [place] [facility] 09/20/2023 13:05:19 09/13/19 24 Allergy Immunotherapy Injections completed SWATI LARA [address], [place], [address], [place] [facility] 09/13/2023 13:26:32 09/06/19 24 Allergy Immunotherapy Injections completed SWATI LARA [address], [place], [address], [place] [facility] 09/06/2023 13:07:18 08/30/19 24 Allergy Immunotherapy Injections completed SWATI LARA [address], [place], [address], [place] [facility] 08/30/2023 13:10:22 08/23/19 24 Allergy Immunotherapy Injections completed CORTES WALSH RN [address], [place], [address], [place] [facility] 08/23/2023 13:46:59 Imaging Results None recorded. Procedure [...] sustained -release 06/09 completed Medicati on ID: [id number] rand Name: bupropio n HCl Send Method: E-Prescr ibed Sub s Allowed: subs OK Medic ationGen ericName : bupropio n HCl Not Available Not Available Not Available clonidine HCl 0.1 mg tablet TAKE 1 TABLET BY MOUTH EVERY DAY NEEDED active Not Available Not Available No t Available prednison e 10 mg tablet 06/09 completed Medicati on ID: [id number] B rand Name: predniso ne Send Method: E-Prescr ibed Sub s Allowed: subs OK Medic ationGen ericName : predniso ne Not Available Not Available Not Available nicotine 14 mg/24 hr daily transderm al patch 06/09 completed Medicati on ID: [id number] B rand Name: nicotine Send Method: E-Prescr [...] mg tablet 06/09 completed Medicati on ID: [id number] B rand Name: lisinopr il Send Method: [...] suspensio n 06/09 completed Medicati on ID: [id number] B rand Name: Milk of Magnesia Send [...] mg capsule 06/09 completed Medicati on ID: [id number] B rand Name: prazosin Send Method: E-Prescr [...] layed release 06/09 completed Medicati on ID: [id number] B rand Name: pantopra zole Sen d [...] mg tablet 06/09 completed Medicati on ID: [id number] B rand Name: lisinopr il Send Method: E-Prescr ibed Sub s Allowed: subs OK Medic ationGen ericName : lisinopr il Not Available Not Available Not Available nicotine 21 mg/24 hr daily transderm al patch 06/09 completed Medicati on ID: [id number] B rand Name: nicotine Send Method: E-Prescr [...] unit) capsule 06/09 completed Medicati on ID: [id number] B rand Name: Vitamin D2 Send Method: [...] mg capsule 06/09 completed Medicati on ID: [id number] B rand Name: prazosin Send Method: E-Prescr ibed Sub s Allowed: subs OK Medic ationGen ericName : prazosin Not Available Not Available Not Available Vitamin B-12 1,000 mcg tablet 06/09 completed Medicati on ID: [id number] B rand Name: Vitamin B-12 Sen d [...] mg capsule 06/09 completed Medicati on ID: [id number] B rand Name: atomoxet ine Send Method: E-Prescr ibed Sub s Allowed: subs OK Medic ationGen ericName : atomoxet ine Not Available Not Available Not Available atomoxeti ne 60 mg capsule TAKE 1 CAPSULE BY MOUTH EVERY DAY IN THE MORNING active Not Available Not Available No t Available nicotine (polacril ex) 2 mg buccal lozenge 06/09 completed Medicati on ID: [id number] B rand Name: nicotine (polacri cuauhtemoc) Sen [...] aerosol inhaler 06/09 completed Medicati on ID: [id number] B rand Name: levalbut ale tartrate Send [...] mcg tablet 06/09 completed Medicati on ID: [id number] B rand Name: High Potency Multivit (w-iron) [...] SNOMED-CT Code Diagnosis ICD10 Code Diagnosis Note [id number] SONJA OH [facility] Allergy [address] [place] [address] [address] [place] [address] 05/08/2024 13:52:18 05/08/2024 13:53:16 Perennial allergic rhinitis [id number] J30.89 [id number] ZAK BACK MD [facility] [address] [address] 05/17/2024 12:46:49 05/17/2024 13:25:42 Perennial allergic rhinitis 681825668 J30.89 Snoring 07824343 R06.83 [id number] SUSANA KHANNA [facility] Allergy [address] [place], [place] [address] 100 [place] [address] 05/15/2024 14:29:21 05/15/2024 14:31:20 Perennial allergic rhinitis 501445809 J30.89 [id number] CORTES WALSH RN Allergy [address] [place] [address] [address] [place] [address] 05/22/2024 13:37:40 05/22/2024 13:38:29 Perennial allergic rhinitis 412512339 J30.89 [id number] [facility] Allergy [address] [place], [place] [address] 100 [place] [address] 05/29/2024 13:52:54 05/29/2024 13:54:35 Perennial allergic rhinitis 667409069 J30.89 [id number] SONJA WHITE [facility] Allergy [address] [place] [address] it[address] 100 [place] [address] 06/05/2024 14:28:09 06/05/2024 14:29:51 Perennial allergic rhinitis 252711567 J30.89 Health Concerns Section Related Observation LastModified by Organization Detai ls LastModified Time None Recorded Concern Status LastModified by Organization Details LastModified Time None Recorded Payers Encounter Date Sequence Insurance Name Policy Number Policy Miller Covered Member ID Miller Member ID Guarantor Name 06/05/2024 1 [facility] NET PLAN (MEDICAID HMO) [facility] Luis Hu [id number] Luis Hu
--- OUTSIDE RECORDS SUMMARY | 2024-06-27 16:29 | XMS_ITS | Continuity of Care Document ---
Author Organization [place] - [facility], Allergy Address [address] [address] Care Team Providers Care [employer] Attendant Name Role Phone CASSANDRA BECK Primary Care Provider [phone] Assessment Encounter Date Assessment Date Assessment LastModified by Organization Details LastModified Time 05/29/2024 05/29/2024 Visit With: SWATI Blanton Use of Antihistamine s: No If yes: Vial Test Change in medications: No If yes ? ? ? Increase in asthma symptoms If yes, inhaler use: Reaction to last injections: No If yes: ? ? ? Allergy Symptoms: Other: ? ? ? Missed: Dose Aware of Vial Test Notes:? ? ? [email or web address] Not available 05/29/2024 13:54:12 Plan of Treatment Reminders Order Date Submit Date Provider Last Modified By Organization Details Last Modified Time Details Appointments [facility]- Allergy f-up 6mon 2024 01:00P M BEN [...] Address Organization Details Recorded Time Allergic rhinitis [id number] Active 2023 Allergic rhinitis: Due to other [...] ; Start Date : 3 Not Available [facility] 4 01:14:26 Chronic rhinitis 68168463 Active 2022 Chronic rhinitis; Note: Date Diagnosed : 06/09/2022 10:57 AM (J31.0) Not Available [facility] 4 03:02:25 Sensorine ural hearing loss of bilateral ears 546975007 Active 2022 Sensorine ural hearing loss, bilateral ; Note: Date Diagnosed : 09/16/2022 10:23 AM (H90.3) Not Available [facility] 4 03:02:25 Snoring 22192883 Active 2022 Snoring; Note: Date Diagnosed : 06/09/2022 10:57 AM (R06.83) Not Available [facility] 4 03:02:26 Bilateral tinnitus [id number] 02 Active 2022 Tinnitus, bilateral ; Note: Date Diagnosed : 06/09/2022 10:57 AM (H93.13) Not Available [facility] 4 03:02:24 Perennial allergic rhinitis 826158703 Active 2023 CORTES WALSH RN [address] [place] [address], [facility] [place], [address] , [place] [facility] 13:45:34 Problem Notes None recorded. Procedures Surgical History Date Name Laterality Status Provider Name and Address Organization Details Recorded Time 06/27/19 25 Allergy Immunotherapy Injections completed SWATI LARA [address], [place], [address], [place] [facility] 06/26/2024 13:07:30 06/20/19 25 Allergy Immunotherapy Injections completed SWATI LARA [address], [place], [address], [place] [facility] 06/19/2024 13:47:43 06/13/19 25 Allergy Immunotherapy Injections completed CORTES WALSH RN [address] [place] [address], [address], [place] [facility] 06/12/2024 14:46:09 06/05/19 25 Allergy Immunotherapy Injections completed SONJA OH RMReji [address] [place] [address], [address], [place] [facility] 06/05/2024 14:29:22 05/29/19 25 Allergy Immunotherapy Injections completed SONJA OH RMReji [address] [place] [address], [address], [place] [facility] 05/29/2024 13:53:39 05/22/19 25 Allergy Immunotherapy Injections completed CORTES WALSH RN [address] [place] [address], [address], [place] [facility] 05/22/2024 13:38:06 05/15/19 25 Allergy Immunotherapy Injections completed SWATI LARA [address], [place], [address], [place] [facility] 05/15/2024 14:30:43 05/08/19 25 Allergy Immunotherapy Injections completed SONJA OH RMReji [address], [place], [address], [place] [facility] 05/08/2024 13:52:53 05/01/19 25 Allergy Immunotherapy Injections completed CORTES WALSH RN [address], [place], [address], [place] [facility] 05/01/2024 13:58:22 04/26/19 25 Allergy Immunotherapy Injections completed CORTES WALSH RN [address], [place], [address], [place] [facility] 04/26/2024 14:09:06 04/17/19 25 Allergy Immunotherapy Injections completed SONJA OH, RMA [address], [place], [address], [place] [facility] 04/17/2024 14:52:46 04/12/19 25 Allergy Immunotherapy Injections completed SONJA OH, RMA [address], [place], [address], [place] [facility] 04/12/2024 14:15:27 04/05/20 24 Allergy Immunotherapy Injections completed CORTES WALSH RN [address], [place], [address], [place] [facility] 04/05/2024 13:59:44 03/29/20 24 Allergy Immunotherapy Injections completed SWATI LARA [address], [place], [address], [place] [facility] 03/29/2024 12:16:50 03/20/20 24 Allergy Immunotherapy Injections completed SONJA OH RMA [address], [place], [address], [place] [facility] 03/20/2024 13:34:37 03/13/20 24 Allergy Immunotherapy Injections completed SWATI LARA [address], [place], [address], [place] [facility] 03/13/2024 13:26:42 03/06/20 24 Allergy Immunotherapy Injections completed SONJA OH RMA [address], [place], [address], [place] [facility] 03/06/2024 13:00:43 02/28/20 24 Allergy Immunotherapy Injections completed CORTES WALSH RN [address], [place], [address], [place] [facility] 02/28/2024 13:24:24 02/22/20 24 Allergy Immunotherapy Injections completed SWATI LARA [address], [place], [address], [place] [facility] 02/22/2024 13:21:07 02/14/20 24 Allergy Immunotherapy Injections completed SWATI LARA [address], [place], [address], [place] [facility] 02/14/2024 13:52:18 02/07/20 24 Allergy Immunotherapy Injections completed SWATI BLANTON [address] [place] [address], [address], [place] [facility] 02/07/2024 15:09:57 01/31/20 24 Allergy Immunotherapy Injections completed CORTES WALSH RN [address] [facility], [place], [address], [place] [facility] 01/31/2024 14:53:00 01/24/20 24 Allergy Immunotherapy Injections completed SWATI LARA [address] [place] [address], [address], [place] [facility] 01/24/2024 13:50:01 01/17/20 24 Allergy Immunotherapy Injections completed CORTES WALSH RN [address] [place] [address], [address], [place] [facility] 01/17/2024 13:32:44 01/10/20 24 Allergy Immunotherapy Injections completed SONJA OH RMReji [address] [place] [address], [address], [place] [facility] 01/10/2024 14:22:39 01/03/20 24 Allergy Immunotherapy Injections completed SWATI LARA [address], [place], [address], [place] [facility] 01/03/2024 13:05:53 12/27/19 24 Allergy Immunotherapy Injections completed SWATI LARA [address], [place], [address], [place] [facility] 12/27/2023 13:24:25 12/20/19 24 Allergy Immunotherapy Injections completed CORTES WALSH RN [address], [place], [address], [place] [facility] 12/20/2023 14:39:13 12/14/19 24 Allergy Immunotherapy Injections completed CORTES WALSH RN [address], [place], [address], [place] [facility] 12/14/2023 13:59:07 12/06/19 24 Allergy Immunotherapy Injections completed SWATI LARA [address], [place], [address], [place] [facility] 12/06/2023 13:42:56 11/29/19 24 Allergy Immunotherapy Injections completed CORTES WALSH RN [address], [place], [address], [place] [facility] 11/29/2023 16:38:38 11/22/19 24 Allergy Immunotherapy Injections completed SWATI LARA [address] [place] [address], [address], [place] [facility] 11/22/2023 13:41:22 11/15/19 24 Allergy Immunotherapy Injections completed SWATI BLANTON [address], [place], [address], [place] [facility] 11/15/2023 13:10:48 11/08/19 24 Allergy Immunotherapy Injections completed SWATI BLANTON [address], [place], [address], [place] [facility] 11/08/2023 13:18:59 11/01/19 24 Allergy Immunotherapy Injections completed CORTES WALSH RN [address], [place], [address], [place] [facility] 11/01/2023 13:24:50 07/17/20 24 Allergy Immunotherapy Injections completed CORTES WALSH RN [address], [place], [address], [place] [facility] 10/25/2023 13:51:27 10/18/19 24 Allergy Immunotherapy Injections completed CORTES WALSH RN [address], [place], [address], [place] [facility] 10/18/2023 16:21:59 10/11/19 24 Allergy Immunotherapy Injections completed OCRTES WALSH RN [address], [place], [address], [place] [facility] 10/11/2023 13:54:23 10/04/19 24 Allergy Immunotherapy Injections completed SWATI LARA [address] [place] [address], [address], [place] [facility] 10/04/2023 13:16:19 09/20/19 24 Allergy Immunotherapy Injections completed SWATI BLANTON [address] [place] [address], [address], [place] [facility] 09/20/2023 13:05:19 09/13/19 24 Allergy Immunotherapy Injections completed SWATI LARA [address], [place], [address], [place] [facility] 09/13/2023 13:26:32 09/06/19 24 Allergy Immunotherapy Injections completed SWATI LARA [address], [place], [address], [place] [facility] 09/06/2023 13:07:18 08/30/19 24 Allergy Immunotherapy Injections completed SWATI LARA [address], [place], [address], [place] [facility] 08/30/2023 13:10:22 08/23/19 24 Allergy Immunotherapy Injections completed CORTES WALSH RN [address], [place], [address], [place] [facility] 08/23/2023 13:46:59 Imaging Results None recorded. Procedure [...] sustained -release 06/09 completed Medicati on ID: [id number] B rand Name: bupropio n HCl Send Method: E-Prescr ibed Sub s Allowed: subs [place] Medic ationGen ericName : bupropio n HCl Not Available Not Available Not Available clonidine HCl 0.1 mg tablet TAKE 1 TABLET BY MOUTH EVERY DAY NEEDED active Not Available Not Available No t Available prednison e 10 mg tablet 06/09 completed Medicati on ID: [id number] B rand Name: predniso ne Send Method: E-Prescr ibed Sub s Allowed: subs [place] Medic ationGen ericName : predniso ne Not Available Not Available Not Available nicotine 14 mg/24 hr daily transderm al patch 06/09 completed Medicati on ID: [id number] B rand Name: nicotine Send Method: E-Prescr [...] mg tablet 06/09 completed Medicati on ID: [id number] B rand Name: lisinopr il Send Method: [...] suspensio n 06/09 completed Medicati on ID: [id number] B rand Name: Milk of Magnesia Send [...] mg capsule 06/09 completed Medicati on ID: [id number] B rand Name: prazosin Send Method: E-Prescr [...] layed release 06/09 completed Medicati on ID: [id number] B rand Name: pantopra zole Sen d [...] mg tablet 06/09 completed Medicati on ID: [id number] B rand Name: lisinopr il Send Method: E-Prescr ibed Sub s Allowed: subs [place] Medic ationGen ericName : lisinopr il Not Available Not Available Not Available nicotine 21 mg/24 hr daily transderm al patch 06/09 completed Medicati on ID: [id number] B rand Name: nicotine Send Method: E-Prescr [...] unit) capsule 06/09 completed Medicati on ID: [id number] B rand Name: Vitamin D2 Send Method: [...] mg capsule 06/09 completed Medicati on ID: [id number] B rand Name: prazosin Send Method: E-Prescr ibed Sub s Allowed: subs [place] Medic ationGen ericName : prazosin Not Available Not Available Not Available Vitamin B-12 1,000 mcg tablet 06/09 completed Medicati on ID: [id number] B rand Name: Vitamin B-12 Sen d [...] mg capsule 06/09 completed Medicati on ID: [id number] B rand Name: atomoxet ine Send Method: E-Prescr ibed Sub s Allowed: subs [place] Medic ationGen ericName : atomoxet ine Not Available Not Available Not Available atomoxeti ne 60 mg capsule TAKE 1 CAPSULE BY MOUTH EVERY DAY IN THE MORNING active Not Available Not Available No t Available nicotine (polacril ex) 2 mg buccal lozenge 06/09 completed Medicati on ID: [id number] B rand Name: nicotine (polacri cuauhtemoc) Sen [...] aerosol inhaler 06/09 completed Medicati on ID: [id number] B rand Name: levalbut ale tartrate Send [...] mcg tablet 06/09 completed Medicati on ID: [id number] B rand Name: High Potency Multivit (w-iron) [...] SNOMED-CT Code Diagnosis ICD10 Code Diagnosis Note [id number] CORTES WALSH RN Allergy [address] [place] [address],[facility] 100 [place] [address] 05/01/2024 13:50:10 05/01/2024 13:58:47 Perennial allergic rhinitis 477697543 J30.89 45309 [facility] Allergy [address] [place] [address] 100 [place] [address] 05/08/2024 13:52:18 05/08/2024 13:53:16 Perennial allergic rhinitis 241176850 J30.89 12813 ZAK BACK MD [facility] [address] [place] [address] 05/17/2024 12:46:49 05/17/2024 13:25:42 Perennial allergic rhinitis 569099436 J30.89 Snoring 02476639 R06.83 26375 SUSANA KHANNA, [address] [place] [address] 05/15/2024 14:29:21 05/15/2024 14:31:20 Perennial allergic rhinitis 362240744 J30.89 [id number] CORTES WALSH RN Allergy [address] [place] [address] it[address] [facility] [address] 05/22/2024 13:37:40 05/22/2024 13:38:29 Perennial allergic rhinitis 746848745 J30.89 48933 [facility] Allergy [address] [place] [address] ite 100 [place] [address] 05/29/2024 13:52:54 05/29/2024 13:54:35 Perennial allergic rhinitis 692930486 J30.89 Health Concerns Section Related Observation LastModified by Organization Detai ls LastModified Time None Recorded Concern Status LastModified by Organization Details LastModified Time None Recorded Payers Encounter Date Sequence Insurance Name Policy Number Policy Miller Covered Member ID Miller Member ID Guarantor Name 05/29/2024 1 [facility] - HEALTH NET PLAN (MEDICAID HMO) [facility] Luis Hu [id number] Luis Hu
--- OUTSIDE RECORDS SUMMARY | 2024-06-27 16:30 | XMS_ITS | Continuity of Care Document ---
Author Organization [place] [facility], Allergy Address [address] [address] Care Team Providers Care Preparation Room Worker Name Role Phone CASSANDRA BECK Primary Care Provider [phone] Assessment Encounter Date Assessment Date Assessment LastModified by Organization Details LastModified Time 06/19/2024 06/19/2024 Visit With: Ciara Guillory Use of Antihistamine s: No If yes: Vial Test Change in medications: Yes If yes ? ? ?lorazepam 5mg Increase in asthma symptoms If yes, inhaler use: Reaction to last injections: No If yes: ? ? ? Allergy Symptoms: Other: ? ? ? Missed: Dose Aware of Vial Test Notes:? ? ? [email or web address] Not available 06/19/2024 13:48:05 Plan of Treatment Reminders Order Date Submit Date Provider Last Modified By Organization Details Last Modified Time Details Appointments [facility]- Allergy f-up 6mon 2024 01:00P M BEN [...] Address Organization Details Recorded Time Allergic rhinitis [id number] Active 2023 Allergic rhinitis: Due to other [...] ; Start Date : 3 Not Available [facility] 4 01:14:26 Chronic rhinitis 55793630 Active 2022 Chronic rhinitis; Note: Date Diagnosed : 06/09/2022 10:57 AM (J31.0) Not Available [facility] 4 03:02:25 Sensorine ural hearing loss of bilateral ears 941300372 Active 2022 Sensorine ural hearing loss, bilateral ; Note: Date Diagnosed : 09/16/2022 10:23 AM (H90.3) Not Available [facility] 4 03:02:25 Snoring 03599590 Active 2022 Snoring; Note: Date Diagnosed : 06/09/2022 10:57 AM (R06.83) Not Available [facility] 4 03:02:26 Bilateral tinnitus [id number] 02 Active 2022 Tinnitus, bilateral ; Note: Date Diagnosed : 06/09/2022 10:57 AM (H93.13) Not Available [facility] 4 03:02:24 Perennial allergic rhinitis 452075091 Active 2023 CORTES WALSH RN [address] [place] [address], [place], [address] , [place] [facility] 13:45:34 Problem Notes None recorded. Procedures Surgical History Date Name Laterality Status Provider Name and Address Organization Details Recorded Time 06/27/19 25 Allergy Immunotherapy Injections completed SWATI LARA [address], [address], [place] [facility] 06/26/2024 13:07:30 06/20/19 25 Allergy Immunotherapy Injections completed SWATI LARA [address], [place], [address], [place] [facility] 06/19/2024 13:47:43 06/13/19 25 Allergy Immunotherapy Injections completed CORTES WALSH RN [address] [address] [place] [address], [address], [facility] - [facility] 06/12/2024 14:46:09 06/05/19 25 Allergy Immunotherapy Injections completed SWATI BERGER [address] [address] [place] [address], [address], [place] [facility] 06/05/2024 14:29:22 05/29/19 25 Allergy Immunotherapy Injections completed SONJA OH RMReji [address] [address] [place] [address], [address], [place] [facility] 05/29/2024 13:53:39 05/22/19 25 Allergy Immunotherapy Injections completed CORTES WALSH RN [address] [facility],[address] [place] [address], [address], [place] [facility] 05/22/2024 13:38:06 05/15/19 25 Allergy Immunotherapy Injections completed SWATI LARA [address], [place], [address], [place] [facility] 05/15/2024 14:30:43 05/08/19 25 Allergy Immunotherapy Injections completed SWATI BERGER [address], [place], [address], [place] [facility] 05/08/2024 13:52:53 05/01/19 25 Allergy Immunotherapy Injections completed CORTES WALSH RN [address], [place], [address], [place] [facility] 05/01/2024 13:58:22 04/26/19 25 Allergy Immunotherapy Injections completed CORTES WALSH RN [address], [place], [address], [place] [facility] 04/26/2024 14:09:06 04/17/19 25 Allergy Immunotherapy Injections completed OSNJA OH, RMA [address], [place], [address], [place] [facility] 04/17/2024 14:52:46 04/12/19 25 Allergy Immunotherapy Injections completed SONJA OH, RMA [address], [place], [address], [place] [facility] 04/12/2024 14:15:27 04/05/20 24 Allergy Immunotherapy Injections completed CORTES WALSH RN [address], [place], [address], [place] [facility] 04/05/2024 13:59:44 03/29/20 24 Allergy Immunotherapy Injections completed SWATI LARA [address], [place], [address], [place] [facility] 03/29/2024 12:16:50 03/20/20 24 Allergy Immunotherapy Injections completed SONJA OH RMA [address], [place], [address], [place] [facility] 03/20/2024 13:34:37 03/13/20 24 Allergy Immunotherapy Injections completed SWATI LARA [address], [address], [place] [facility] 03/13/2024 13:26:42 03/06/20 24 Allergy Immunotherapy Injections completed SONJA OH RMA [address], [place], [address], [place] [facility] 03/06/2024 13:00:43 02/28/20 24 Allergy Immunotherapy Injections completed CORTES WALSH RN [address], [place], [address], [place] [facility] 02/28/2024 13:24:24 02/22/20 24 Allergy Immunotherapy Injections completed SWATI LARA [address], [place], [address], [place] [facility] 02/22/2024 13:21:07 02/14/20 24 Allergy Immunotherapy Injections completed SWATI LARA [address], [place], [address], [place] [facility] 02/14/2024 13:52:18 02/07/20 24 Allergy Immunotherapy Injections completed SWATI BERGER [address], [place], [address], [place] [facility] 02/07/2024 15:09:57 01/31/20 24 Allergy Immunotherapy Injections completed CORTES WALSH RN [address], [place], [address], [place] [facility] 01/31/2024 14:53:00 01/24/20 24 Allergy Immunotherapy Injections completed SWATI LARA [address] [place] [address], [address], [place] [facility] 01/24/2024 13:50:01 01/17/20 24 Allergy Immunotherapy Injections completed CORTES WALSH RN [address] [facility] [address],[address] [place] [address], [address], [place] [facility] 01/17/2024 13:32:44 01/10/20 24 Allergy Immunotherapy Injections completed SONJA OH RMeRji [address], [place], [address], [place] [facility] 01/10/2024 14:22:39 01/03/20 24 Allergy Immunotherapy Injections completed SWATI LARA [address], [place], [address], [place] [facility] 01/03/2024 13:05:53 12/27/19 24 Allergy Immunotherapy Injections completed SWATI LARA [address], [place], [address], [place] [facility] 12/27/2023 13:24:25 12/20/19 24 Allergy Immunotherapy Injections completed CORTES WALSH RN [address], [place], [address], [place] [facility] 12/20/2023 14:39:13 12/14/19 24 Allergy Immunotherapy Injections completed CORTES WALSH RN [address], [place], [address], [place] [facility] 12/14/2023 13:59:07 12/06/19 24 Allergy Immunotherapy Injections completed SWATI LARA [address], [place], [address], [place] [facility] 12/06/2023 13:42:56 11/29/19 24 Allergy Immunotherapy Injections completed CORTES WALSH RN [address] [place] [address], [address], [place] [facility] 11/29/2023 16:38:38 11/22/19 24 Allergy Immunotherapy Injections completed SWATI LARA [address], [place], [address], [place] [facility] 11/22/2023 13:41:22 11/15/19 24 Allergy Immunotherapy Injections completed SWATI BERGER [address], [place], [address], [place] [facility] 11/15/2023 13:10:48 11/08/19 24 Allergy Immunotherapy Injections completed SWATI BERGER [address], [place], [address], [place] [facility] 11/08/2023 13:18:59 11/01/19 24 Allergy Immunotherapy Injections completed CORTES WALSH RN [address], [place], [address], [place] [facility] 11/01/2023 13:24:50 10/25/19 24 Allergy Immunotherapy Injections completed CORTES WALSH RN [address], [place], [address], [place] [facility] 10/25/2023 13:51:27 10/18/19 24 Allergy Immunotherapy Injections completed CORTES WALSH RN [address], [place], [address], [place] [facility] 10/18/2023 16:21:59 10/11/19 24 Allergy Immunotherapy Injections completed CORTES WALSH RN [address], [place], [address], [place] [facility] 10/11/2023 13:54:23 10/04/19 24 Allergy Immunotherapy Injections completed SWATI LARA [address], [place], [address], [place] [facility] 10/04/2023 13:16:19 09/20/19 24 Allergy Immunotherapy Injections completed SWATI BERGER [address], [place], [address], [place] [facility] 09/20/2023 13:05:19 09/13/19 24 Allergy Immunotherapy Injections completed SWATI LARA [address], [place], [address], [place] [facility] 09/13/2023 13:26:32 09/06/19 24 Allergy Immunotherapy Injections completed SWATI LARA [address], [place], [address], [place] [facility] 09/06/2023 13:07:18 08/30/19 24 Allergy Immunotherapy Injections completed SWATI LARA [address], [place], [address], [place] [facility] 08/30/2023 13:10:22 08/23/19 24 Allergy Immunotherapy Injections completed CORTES WALSH RN [address], [place], [address], [place] [facility] 08/23/2023 13:46:59 Imaging Results None recorded. Procedure [...] sustained -release 06/09 completed Medicati on ID: [id number] B rand Name: bupropio n HCl Send Method: E-Prescr ibed Sub s Allowed: subs OK Medic ationGen ericName : bupropio n HCl Not Available Not Available Not Available clonidine HCl 0.1 mg tablet TAKE 1 TABLET BY MOUTH EVERY DAY NEEDED active Not Available Not Available No t Available prednison e 10 mg tablet 06/09 completed Medicati on ID: [id number] B rand Name: predniso ne Send Method: E-Prescr ibed Sub s Allowed: subs OK Medic ationGen ericName : predniso ne Not Available Not Available Not Available nicotine 14 mg/24 hr daily transderm al patch 06/09 completed Medicati on ID: [id number] B rand Name: nicotine Send Method: E-Prescr [...] mg tablet 06/09 completed Medicati on ID: [id number] B rand Name: lisinopr il Send Method: [...] suspensio n 06/09 completed Medicati on ID: [id number] B rand Name: Milk of Magnesia Send [...] mg capsule 06/09 completed Medicati on ID: [id number] B rand Name: prazosin Send Method: E-Prescr [...] layed release 06/09 completed Medicati on ID: [id number] B rand Name: pantopra zole Sen d [...] mg tablet 06/09 completed Medicati on ID: [id number] B rand Name: lisinopr il Send Method: E-Prescr ibed Sub s Allowed: subs OK Medic ationGen ericName : lisinopr il Not Available Not Available Not Available nicotine 21 mg/24 hr daily transderm al patch 06/09 completed Medicati on ID: [id number] B rand Name: nicotine Send Method: E-Prescr [...] unit) capsule 06/09 completed Medicati on ID: [id number] B rand Name: Vitamin D2 Send Method: [...] mg capsule 06/09 completed Medicati on ID: [id number] B rand Name: prazosin Send Method: E-Prescr ibed Sub s Allowed: subs OK Medic ationGen ericName : prazosin Not Available Not Available Not Available Vitamin B-12 1,000 mcg tablet 06/09 completed Medicati on ID: [id number] B rand Name: Vitamin B-12 Sen d [...] mg capsule 06/09 completed Medicati on ID: [id number] B rand Name: atomoxet ine Send Method: E-Prescr ibed Sub s Allowed: subs OK Medic ationGen ericName : atomoxet ine Not Available Not Available Not Available atomoxeti ne 60 mg capsule TAKE 1 CAPSULE BY MOUTH EVERY DAY IN THE MORNING active Not Available Not Available No t Available nicotine (polacril ex) 2 mg buccal lozenge 06/09 completed Medicati on ID: [id number] B rand Name: nicotine (polacri cuauhtemoc) Sen [...] aerosol inhaler 06/09 completed Medicati on ID: [id number] B rand Name: levalbut ale tartrate Send [...] mcg tablet 06/09 completed Medicati on ID: [id number] B rand Name: High Potency Multivit (w-iron) [...] SNOMED-CT Code Diagnosis ICD10 Code Diagnosis Note [id number] CORTES WALSH RN Allergy 100 [facility] [place] [address] 05/22/2024 13:37:40 05/22/2024 13:38:29 Perennial allergic rhinitis [id number] J30.89 [id number] [facility] Allergy [address] [place] [address],[address] [place] [address] 05/29/2024 13:52:54 05/29/2024 13:54:35 Perennial allergic rhinitis 405005263 J30.89 [id number] [facility] Allergy 100 [facility] [place] [address] 06/05/2024 14:28:09 06/05/2024 14:29:51 Perennial allergic rhinitis [id number] J30.89 [id number] CORTES WALSH RN Allergy [address] [place] [address],[address] [place] [address] 06/12/2024 14:45:26 06/12/2024 14:50:18 Perennial allergic rhinitis [id number] J30.89 [id number] [facility] Allergy [address] [place] [address],[address] [place] [address] 06/19/2024 13:46:05 06/19/2024 13:59:57 Perennial allergic rhinitis 841284289 J30.89 Health Concerns Section Related Observation LastModified by Organization Detai ls LastModified Time None Recorded Concern Status LastModified by Organization Details LastModified Time None Recorded Payers Encounter Date Sequence Insurance Name Policy Number Policy Miller Covered Member ID Miller Member ID Guarantor Name 06/19/2024 1 [facility]MEDICAID HMO) BOSTBRUNILDA Hu [id number] Luis Hu
--- OUTSIDE RECORDS SUMMARY | 2024-06-27 16:30 | XMS_ITS | Data Portability ---
Author Organization [place] - [facility], Allergy Address [address] [address] Care Team Providers Care Car Designer Name Role Phone CASSANDRA BECK Primary Care Provider [phone] Assessment Encounter Date Assessment Date Assessment LastModified [...] Aware of Vial Test Notes:? ? ? [email or web address] Not available 05/29/2024 13:54:12 06/05/2024 06/05/2024 Visit With: SWATI Blanton Use of Antihistamine s: No If yes: Vial Test Change in medications: No If yes ? ? ? Increase in asthma symptoms If yes, inhaler use: Reaction to last injections: No If yes: ? ? ? Allergy Symptoms: Other: ? ? ? Missed: Dose Aware of Vial Test Notes:? ? ? [email or web address] Not available 06/05/2024 14:29:30 06/12/2024 06/12/2024 Visit With: Cortes Walsh RN [...] ? ? [email or web address] Not available 06/12/2024 14:46:18 06/19/2024 06/19/2024 Visit With: Ciara Guillory Use of Antihistamine s: No If yes: Vial Test Change in medications: Yes If yes ? ? ?lorazepam 5mg Increase in asthma symptoms If yes, inhaler use: Reaction to last injections: No If yes: ? ? ? Allergy Symptoms: Other: ? ? ? Missed: Dose Aware of Vial Test Notes:? ? ? [email or web address] Not available 06/19/2024 13:48:05 06/26/2024 06/26/2024 Visit With: Ciara Guillory Use of Antihistamine s: No If yes: Vial Test Change in medications: No If yes ? ? ? Increase in asthma symptoms If yes, inhaler use: Reaction to last injections: No If yes: ? ? ? Allergy Symptoms: Other: ? ? ? Missed: Dose Aware of Vial Test Notes:? ? ? [email or web address] Not available 06/26/2024 13:07:35 Plan of Treatment Reminders Order Date Submit Date Provider Last Modified By Organization Details Last Modified Time Details Appointments [facility]- Allergy f-up 6mon 2024 01:00P M BEN [...] Address Organization Details Recorded Time Allergic rhinitis 43352707 Active 2023 Allergic rhinitis: Due to other allergen; Note: Date Diagnosed : 04/26/2023 2:23 PM (477.8) Note: Date Diagnosed : 04/26/2023 2:23 PM (477.8) Allergi c rhinitis: Due to other allergen; Note: Date Diagnosed : 04/19/2023 1:21 PM (477.8) Note: Date Diagnosed : 04/19/2023 1:21 PM (477.8) ; Start Date : Allergi c rhinitis: Due to other allergen; [...] other allergen; Note: Date Diagnosed : 3 1:16 PM (477.8) Note: Date Diagnosed : 3 1:16 PM (477.8) ; Start Date : 3 Allergi c rhinitis: Due to other allergen; Note: Date Diagnosed : 3 1:20 PM (477.8) Note: Date Diagnosed : 3 1:20 PM (477.8) ; Start Date : 3 Allergi c rhinitis: Due to other allergen; Note: Date Diagnosed : 03/15/2023 9:43 AM (477.8) Note: Date Diagnosed : 03/15/2023 9:43 AM (477.8) ; Start Date : 3 Allergi c rhinitis: Due to other allergen; Note: Date Diagnosed : 3 10:26 AM (477.8) Note: Date Diagnosed : 3 10:26 AM (477.8) ; Start Date : 3 Allergi c rhinitis: Due to other allergen; Note: Date Diagnosed : 3 11:24 AM (477.8) Note: Date Diagnosed : [...] ; Start Date : 3 Not Available [facility] 4 01:14:26 Chronic rhinitis 16891491 Active 2022 Chronic rhinitis; Note: Date Diagnosed : 06/09/2022 10:57 AM (J31.0) Not Available [facility] 4 03:02:25 Sensorine ural hearing loss of bilateral ears 264095406 Active 2022 Sensorine ural hearing loss, bilateral ; Note: Date Diagnosed : 09/16/2022 10:23 AM (H90.3) Not Available [facility] 4 03:02:25 Snoring 95574820 Active 2022 Snoring; Note: Date Diagnosed : 06/09/2022 10:57 AM (R06.83) Not Available [facility] 4 03:02:26 Bilateral tinnitus [id number] 02 Active 2022 Tinnitus, bilateral ; Note: Date Diagnosed : 06/09/2022 10:57 AM (H93.13) Not Available [facility] 4 03:02:24 Perennial allergic rhinitis 444547060 Active 2023 CORTES WALSH RN 100 [facility],[place] [address], [place], [address] , [facility] - [facility] 4 13:45:34 Problem Notes None recorded. Procedures Surgical History Date Name Laterality Status Provider Name and Address Organization Details Recorded Time 06/27/19 25 Allergy Immunotherapy Injections completed SWATI LARA 100 [facility],[place] [address], [place], [address], [place] - [facility] 06/26/2024 13:07:30 06/20/19 25 Allergy Immunotherapy Injections completed SWATI LARA [address],[place] [address], [place], [address], [place] [facility] 06/19/2024 13:47:43 06/13/19 25 Allergy Immunotherapy Injections completed CORTES WALSH RN [address],[place] [address], [address], [place] [facility] 06/12/2024 14:46:09 06/05/19 25 Allergy Immunotherapy Injections completed SONJA OH RMA [address],[place] [address], [address], [place] [facility] 06/05/2024 14:29:22 05/29/19 25 Allergy Immunotherapy Injections completed SONJA OH, RMA [address],[place] [address], [address], [place] [facility] 05/29/2024 13:53:39 05/22/19 25 Allergy Immunotherapy Injections completed CORTES WALSH RN [address],[place] [address] [place] [address], [address], [place] [facility] 05/22/2024 13:38:06 05/15/19 25 Allergy Immunotherapy Injections completed SWATI LARA [address],[place] [address] [place] [address], [address], [place] [facility] 05/15/2024 14:30:43 05/08/19 25 Allergy Immunotherapy Injections completed SONJA OH RMA [address],[place] [address], [address], [place] [facility] 05/08/2024 13:52:53 05/01/19 25 Allergy Immunotherapy Injections completed CORTES WALSH RN [address],[place] [address] [place] [address], [address], [place] [facility] 05/01/2024 13:58:22 04/26/19 25 Allergy Immunotherapy Injections completed CORTES WALSH RN [address],[place] [address], [address], [place] [facility] 04/26/2024 14:09:06 04/17/19 25 Allergy Immunotherapy Injections completed SONJA OH, RMA [address],[place] [address], [address], [place] [facility] 04/17/2024 14:52:46 04/12/19 25 Allergy Immunotherapy Injections completed SONJA OH, RMA [address],[place] [address], [address], [place] [facility] 04/12/2024 14:15:27 04/05/20 24 Allergy Immunotherapy Injections completed CORTES WALSH RN [address] [facility] [facility] [address],[place] [address] [place] [address], [address], [place] [facility] 04/05/2024 13:59:44 03/29/20 24 Allergy Immunotherapy Injections completed VINNY LARAA [address],[place] [address] [place] [address], [address], [place] [facility] 03/29/2024 12:16:50 03/20/20 24 Allergy Immunotherapy Injections completed SONJA OH RMA [address],[place] [address] [place] [address], [address], [place] [facility] 03/20/2024 13:34:37 03/13/20 24 Allergy Immunotherapy Injections completed VINNY LARAA [address],[place] [address] [place] [address], [address], [place] [facility] 03/13/2024 13:26:42 03/06/20 24 Allergy Immunotherapy Injections completed SONJA OH RMA [address],[place] [address] [place] [address], [address], [place] [facility] 03/06/2024 13:00:43 02/28/20 24 Allergy Immunotherapy Injections completed CORTES WALSH RN [address],[place] [address], [address], [place] [facility] 02/28/2024 13:24:24 02/22/20 24 Allergy Immunotherapy Injections completed SWATI LARA [address], [address], [place] [facility] 02/22/2024 13:21:07 02/14/20 24 Allergy Immunotherapy Injections completed SWATI LARA [address],[place] [address], [address], [place] [facility] 02/14/2024 13:52:18 02/07/20 24 Allergy Immunotherapy Injections completed SONJA OH RMReji [address],[place] [address], [address], [place] [facility] 02/07/2024 15:09:57 01/31/20 24 Allergy Immunotherapy Injections completed CORTES WALSH RN [address] [facility],[place] [address] [place] [address], [address], [place] [facility] 01/31/2024 14:53:00 01/24/20 24 Allergy Immunotherapy Injections completed SWATI LARA [address] [facility] [address],[place] [address] [place] [address], [address], [place] [facility] 01/24/2024 13:50:01 01/17/20 24 Allergy Immunotherapy Injections completed CORTES WALSH RN [address] [facility] [place] [address] [place] [address], [address], [place] [facility] 01/17/2024 13:32:44 01/10/20 24 Allergy Immunotherapy Injections completed SONJA OH RMReji [address],[place] [address] [place] [address], [address], [place] [facility] 01/10/2024 14:22:39 01/03/20 24 Allergy Immunotherapy Injections completed SWATI LARA [address] [facility] [address],[place] [address] [place] [address], [address], [place] [facility] 01/03/2024 13:05:53 12/27/19 24 Allergy Immunotherapy Injections completed SWATI LARA [address] [facility] [address],[place] [address] [place] [address], [address], [place] [facility] 12/27/2023 13:24:25 12/20/19 24 Allergy Immunotherapy Injections completed CORTES WALSH RN [address],[place] [address], [address], [place] [facility] 12/20/2023 14:39:13 12/14/19 24 Allergy Immunotherapy Injections completed CORTES WALSH RN [address] [facility] [address] [address] [address], [place], [address], [place] [facility] 12/14/2023 13:59:07 12/06/19 24 Allergy Immunotherapy Injections completed SWATI LARA [address] [facility] [address],[place] [address], [address], [place] [facility] 12/06/2023 13:42:56 11/29/19 24 Allergy Immunotherapy Injections completed CORTES WALSH RN [address] [facility] [place] [address], [address], [place] [facility] 11/29/2023 16:38:38 11/22/19 24 Allergy Immunotherapy Injections completed SWATI LARA [address] [facility] [place] [address] [place] [address], [address], [place] [facility] 11/22/2023 13:41:22 11/15/19 24 Allergy Immunotherapy Injections completed SWATI BLANTON [address] [facility] [address],[place] [address] [place] [address], [address], [place] [facility] 11/15/2023 13:10:48 11/08/19 24 Allergy Immunotherapy Injections completed SWATI BLANTON [address] [facility] [address],[place] [address] [place] [address], [address], [place] [facility] 11/08/2023 13:18:59 11/01/19 24 Allergy Immunotherapy Injections completed CORTES WALSH RN [address] [facility],[place] [address] [place] [address], [address], [place] [facility] 11/01/2023 13:24:50 10/25/19 24 Allergy Immunotherapy Injections completed CORTES WALSH RN [address] [facility] [address],[place] [address], [address], [place] [facility] 10/25/2023 13:51:27 10/18/19 24 Allergy Immunotherapy Injections completed CORTES WALSH RN [address] [facility] [place] [address], [address], [facility] - [facility] 10/18/2023 16:21:59 10/11/19 24 Allergy Immunotherapy Injections completed CORTES WALSH RN [address] [facility] [address] [address], [address], [facility] - [facility] 10/11/2023 13:54:23 10/04/19 24 Allergy Immunotherapy Injections completed SWATI LARA [address] [facility] [address],[place] [address] [place] [address], [address], [place] [facility] 10/04/2023 13:16:19 09/20/19 24 Allergy Immunotherapy Injections completed SWATI BLANTON [address] [facility] [address],[place] [address] [place] [address], [address], [place] [facility] 09/20/2023 13:05:19 09/13/19 24 Allergy Immunotherapy Injections completed SWATI LARA [address] [facility] [place] [address] [place] [address], [address], [facility] - [facility] 09/13/2023 13:26:32 09/06/19 24 Allergy Immunotherapy Injections completed SWATI LARA [address] [facility] [place] [address] [place] [address], [address], [facility] - [facility] 09/06/2023 13:07:18 08/30/19 24 Allergy Immunotherapy Injections completed SWATI LARA [address] [facility] [place] [address] [place] [address], [address], [facility] - [facility] 08/30/2023 13:10:22 08/23/19 24 Allergy Immunotherapy Injections completed CORTES WALSH RN [address] [facility] [place] [address], [place], [address], [facility] - [facility] 08/23/2023 13:46:59 Imaging Results None recorded. Procedure [...] sustained -release 06/09 completed Medicati on ID: [id number] B rand Name: bupropio n HCl Send Method: E-Prescr ibed Sub s Allowed: subs OK Medic ationGen ericName : bupropio n HCl Not Available Not Available Not Available clonidine HCl 0.1 mg tablet TAKE 1 TABLET BY MOUTH EVERY DAY NEEDED active Not Available Not Available No t Available prednison e 10 mg tablet 06/09 completed Medicati on ID: [id number] B rand Name: predniso ne Send Method: E-Prescr ibed Sub s Allowed: subs OK Medic ationGen ericName : predniso ne Not Available Not Available Not Available nicotine 14 mg/24 hr daily transderm al patch 06/09 completed Medicati on ID: [id number] B rand Name: nicotine Send Method: E-Prescr [...] mg tablet 06/09 completed Medicati on ID: [id number] B rand Name: lisinopr il Send Method: [...] suspensio n 06/09 completed Medicati on ID: [id number] B rand Name: Milk of Magnesia Send [...] mg capsule 06/09 completed Medicati on ID: [id number] B rand Name: prazosin Send Method: E-Prescr [...] layed release 06/09 completed Medicati on ID: [id number] B rand Name: pantopra zole Sen d [...] mg tablet 06/09 completed Medicati on ID: [id number] B rand Name: lisinopr il Send Method: E-Prescr ibed Sub s Allowed: subs OK Medic ationGen ericName : lisinopr il Not Available Not Available Not Available nicotine 21 mg/24 hr daily transderm al patch 06/09 completed Medicati on ID: [id number] B rand Name: nicotine Send Method: E-Prescr [...] unit) capsule 06/09 completed Medicati on ID: [id number] B rand Name: Vitamin D2 Send Method: [...] mg capsule 06/09 completed Medicati on ID: [id number] B rand Name: prazosin Send Method: E-Prescr ibed Sub s Allowed: subs OK Medic ationGen ericName : prazosin Not Available Not Available Not Available Vitamin B-12 1,000 mcg tablet 06/09 completed Medicati on ID: [id number] B rand Name: Vitamin B-12 Sen d [...] mg capsule 06/09 completed Medicati on ID: [id number] B rand Name: atomoxet ine Send Method: E-Prescr ibed Sub s Allowed: subs OK Medic ationGen ericName : atomoxet ine Not Available Not Available Not Available atomoxeti ne 60 mg capsule TAKE 1 CAPSULE BY MOUTH EVERY DAY IN THE MORNING active Not Available Not Available No t Available nicotine (polacril ex) 2 mg buccal lozenge 06/09 completed Medicati on ID: [id number] B rand Name: nicotine (polacri cuauhtemoc) Sen [...] aerosol inhaler 06/09 completed Medicati on ID: [id number] B rand Name: levalbut ale tartrate Send [...] mcg tablet 06/09 completed Medicati on ID: [id number] B rand Name: High Potency Multivit (w-iron) [...] SNOMED-CT Code Diagnosis ICD10 Code Diagnosis Note 367 NAGA FENG MD Allergy [address] [place] [address] it[address] [place] [address] 08/23/2023 12:59:00 08/28/2023 15:54:15 Perennial allergic rhinitis 128585754 J30.89 1161 NAGA FENG MD Allergy [address] [place] [address] it 100 [place] [address] 08/30/2023 13:09:20 08/30/2023 15:51:52 Perennial allergic rhinitis [id number] J30.89 1862 CIARA GUILLORY [facility] Allergy [address] [place] [address] 100 [place] [address] 09/06/2023 13:06:32 09/06/2023 15:09:49 Perennial allergic rhinitis [id number] J30.89 2867 CIARA GUILLORY [facility] Allergy [address] [place] [address] it[address] [place] [address] 09/13/2023 12:59:35 09/13/2023 15:03:23 Perennial allergic rhinitis [id number] J30.89 [id number] [facility], [facility] Allergy [address] [place] [address] it[address] [place] [address] 09/20/2023 12:56:21 09/20/2023 15:27:20 Perennial allergic rhinitis [id number] J30.89 5691 CIARA GUILLORY [facility] Allergy [address] [place] [address] it[address] [place] [address] 10/04/2023 13:15:10 10/04/2023 15:25:02 Perennial allergic rhinitis 354717080 J30.89 [id number] CORTES WALSH RN Allergy [address] [place] [address] it[address] [place] [address] 10/11/2023 12:57:15 10/11/2023 14:43:51 Perennial allergic rhinitis 301591161 J30.89 7359 CORTES WALSH RN Allergy [address] [place] [address] [address] [place] [address] 10/18/2023 16:20:26 10/18/2023 16:42:25 Perennial allergic rhinitis [id number] J30.89 8293 CORTES WALSH RN Allergy [address] [place] [address],[place] [address] [place] [address] 10/25/2023 13:50:03 10/25/2023 14:06:38 Perennial allergic rhinitis [id number] J30.89 9306 CORTES WALSH RN Allergy [address] [place] [address],[place] [address] [place] [address] 11/01/2023 13:24:06 11/01/2023 13:25:32 Perennial allergic rhinitis [id number] J30.89 [id number] [facility], [facility] Allergy [address] [place] [address],[place] [address] [place] [address] 11/08/2023 13:17:59 11/08/2023 15:02:25 Perennial allergic rhinitis 291554916 J30.89 [id number] [facility], [facility] Allergy [address] [place] [address], [address] [place] [address] 11/15/2023 13:09:53 11/15/2023 13:32:39 Perennial allergic rhinitis 911556911 J30.89 [id number] CIARA GUILLORY, [facility] Allergy [address] [place] [address],[place] [address] [place] [address] 11/22/2023 13:40:13 11/22/2023 13:45:52 Perennial allergic rhinitis [id number] J30.89 [id number] CORTES WALSH RN Allergy [address] [place] [address],[place] [address] [place] [address] 11/29/2023 16:37:52 11/29/2023 16:39:18 Perennial allergic rhinitis 707566412 J30.89 [id number] CIARA GUILLORY, [facility] Allergy [address] [place] [address],[place] [address] [place] [address] 12/06/2023 13:41:23 12/06/2023 14:12:43 Perennial allergic rhinitis 858190126 J30.89 [id number] CORTES WALSH RN Allergy [address] [place] [address] it[address] [place] [address] 12/14/2023 13:57:57 12/14/2023 14:00:02 Perennial allergic rhinitis 128171128 J30.89 74042 CORTES WALSH RN Allergy [address] [place] [address] 100 [place] [address] 12/20/2023 14:38:15 12/20/2023 14:39:43 Perennial allergic rhinitis 732567311 J30.89 [id number] CIARA GUILLORY [facility] Allergy [address] [place] [address] 100 [place] [address] 12/27/2023 13:23:10 12/27/2023 14:12:08 Perennial allergic rhinitis [id number] J30.89 [id number] CIARA GUILLORY [facility] Allergy [address] [place] [address] 100 [place] [address] 01/03/2024 13:04:52 01/03/2024 14:58:04 Perennial allergic rhinitis [id number] J30.89 23906 [facility] Allergy [address] [place] [address] 100 [place] [address] 01/10/2024 14:20:47 01/10/2024 14:24:00 Perennial allergic rhinitis 514558015 J30.89 23001 CORTES WALSH RN Allergy [address] [place] [address] 100 [place] [address] 01/17/2024 13:31:28 01/17/2024 13:33:16 Perennial allergic rhinitis 153223839 J30.89 [id number] CIARA GUILLORY [facility] Allergy [address] [place] [address] it[address] [place] [address] 01/24/2024 13:48:39 01/24/2024 13:50:25 Perennial allergic rhinitis [id number] J30.89 [id number] CORTES WALSH RN Allergy [address] [place], [place] [address] 100 [place] [address] 01/31/2024 14:52:11 01/31/2024 14:53:33 Perennial allergic rhinitis [id number] J30.89 [id number] [facility], [facility] Allergy [address],[place] [address] [place] [address] 02/07/2024 15:08:33 02/07/2024 15:10:45 Perennial allergic rhinitis [id number] J30.89 04178 CIARA JEY, [facility] Allergy [address] [place] [address],[place] [address] [place] [address] 02/14/2024 13:51:33 02/14/2024 13:52:55 Perennial allergic rhinitis [id number] J30.89 [id number] CIARA GUILLORY, [facility] Allergy [address] [place] [address] it[address] [place] [address] 02/22/2024 13:20:22 02/22/2024 13:23:00 Perennial allergic rhinitis 551446643 J30.89 [id number] CORTES WALSH RN Allergy [address] [place] [address] [address] [place] [address] 02/28/2024 13:23:03 02/28/2024 13:25:05 Perennial allergic rhinitis [id number] J30.89 [id number] [facility], [facility] Allergy [address] [place] [address], [address] [place] [address] 03/06/2024 12:59:46 03/06/2024 13:01:37 Perennial allergic rhinitis [id number] J30.89 [id number] CIARA JEY, [facility] Allergy [address] [place] [address] [address] [place] [address] 03/13/2024 13:25:49 03/13/2024 13:27:14 Perennial allergic rhinitis [id number] J30.89 [id number] [facility], [facility] Allergy [address] [place] [address],[place] [address] [place] [address] 03/20/2024 13:33:55 03/20/2024 13:47:01 Perennial allergic rhinitis [id number] J30.89 13957 CIARA GUILLORY, [facility] Allergy [address] [place] [address],[place] [address] [place] [address] 03/29/2024 12:15:49 03/29/2024 12:17:25 Perennial allergic rhinitis [id number] J30.89 [id number] CORTES WALSH RN Allergy [address],[place] [address] [place] [address] 04/05/2024 13:58:53 04/05/2024 14:00:15 Perennial allergic rhinitis [id number] J30.89 [id number] [facility], [facility] Allergy [address] [place] [address],[place] [address] [place] [address] 04/12/2024 14:13:32 04/12/2024 14:15:56 Perennial allergic rhinitis [id number] J30.89 [id number] [facility], [facility] Allergy [address] [place] [address],[place] [address] [place] [address] 04/17/2024 14:52:03 04/17/2024 14:53:38 Perennial allergic rhinitis [id number] J30.89 [id number] CORTES WALSH RN Allergy [address] [place] [address] [address] [place] [address] 04/26/2024 14:08:32 04/26/2024 14:09:35 Perennial allergic rhinitis [id number] J30.89 [id number] CORTES WALSH RN Allergy [address] [place] [address], [address] [place] [address] 05/01/2024 13:50:10 05/01/2024 13:58:47 Perennial allergic rhinitis [id number] J30.89 [id number] [facility], [facility] Allergy [address] [place] [address],[address] [place] [address] 05/08/2024 13:52:18 05/08/2024 13:53:16 Perennial allergic rhinitis [id number] J30.89 [id number] ZAK BACK MD [facility] [place] 100 [facility] [place] [address] 05/17/2024 12:46:49 05/17/2024 13:25:42 Perennial allergic rhinitis [id number] J30.89 Snoring [id number] R06.83 [id number] CIARA GUILLORY, [facility] Allergy [address] [place] [address],[address] [place] [address] 05/15/2024 14:29:21 05/15/2024 14:31:20 Perennial allergic rhinitis [id number] J30.89 [id number] CORTES WALSH RN Allergy [address] [facility] [place],[address] [place] [address] 05/22/2024 13:37:40 05/22/2024 13:38:29 Perennial allergic rhinitis [id number] J30.89 [id number] SONJA OH, RMA Allergy [address] [facility] [address] [place] [address] 05/29/2024 13:52:54 05/29/2024 13:54:35 Perennial allergic rhinitis [id number] J30.89 [id number] SONJA OH, RMA Allergy [address] [facility] [address] [place] [address] 06/05/2024 14:28:09 06/05/2024 14:29:51 Perennial allergic rhinitis [id number] J30.89 71948 CORTES WALSH RN Allergy [address] [facility] [facility] [place],[address] [place] [address] 06/12/2024 14:45:26 06/12/2024 14:50:18 Perennial allergic rhinitis [id number] J30.89 10842 SONJA WHITE, RMA Allergy [address] [facility] [address] [place] [address] 06/19/2024 13:46:05 06/19/2024 13:59:57 Perennial allergic rhinitis [id number] J30.89 44143 CIARA GUILLORY, A Allergy [address] [facility] [place],[address] [place] [address] 06/26/2024 13:06:46 06/26/2024 13:08:13 Perennial allergic rhinitis [id number] J30.89 Health Concerns Section Related Observation LastModified by Organization Detai ls LastModified Time None Recorded Concern Status LastModified by Organization Details LastModified Time None Recorded Advance Directives Directive None Recorded Payers Encounter Date Sequence Insurance Name Policy Number Policy Miller Covered Member ID Miller Member ID Guarantor Name 05/29/2024 1 [facility] PL[facility] (MEDICAID HMO) FLAVIO Hu [id number] Luis Hu 06/05/2024 1 [facility] NET PLAN (MEDICAID HMO) FLAVIO Hu [id number] Luis Hu 06/12/2024 1 [facility] PLAN (MEDICAID HMO) FLAVIO Hu [id number] Luis Hu 06/19/2024 1 [facility] PLAN (MEDICAID HMO) FLAVIO Hu [id number] Luis Hu 06/26/2024 1 [facility] PLAN (MEDICAID HMO) FLAVIO Hu [id number] Luis Hu
== END 2024-06-27 15:05 | disposition home or self-care (01) ==
LOC: HO.HMCH 13:50
PROVIDERS: PCP Physician Assistant; Visit Provider Physician Assistant
DX: Z23 Encounter for immunization (principal); R73.09 Other abnormal glucose

== ENCOUNTER → 2024-06-27 13:49 | Outpatient (BNVA) | payer OTHER, SELFPAY | PROVIDERS: PCP Physician Assistant; Visit Provider Physician Assistant | DX: Z00.00 Encounter for general adult medical examination without abnormal findings (principal); Z23 Encounter for immunization; E78.2 Mixed hyperlipidemia; F33.1 Major depressive disorder, recurrent, moderate; J45.40 Moderate persistent asthma, uncomplicated; E66.01 Morbid (severe) obesity due to excess calories; Z68.39 Body mass index [BMI] 39.0-39.9, adult; F25.9 Schizoaffective disorder, unspecified; R73.09 Other abnormal glucose; M47.816 Spondylosis without myelopathy or radiculopathy, lumbar region; F17.200 Nicotine dependence, unspecified, uncomplicated; Z71.6 Tobacco abuse counseling; Z71.3 Dietary counseling and surveillance | CPT/HCPCS: 90471; 90677; 96127; 96160; 99395 ==

== ENCOUNTER 2024-07-15 09:32 | Outpatient (REF) | payer MEDICARE, MEDICAID, SELFPAY ==
[2024-07-15 10:34] LABS: Hematocrit 49.4 % (42.0-52.0); Hemoglobin 15.9 g/dl (14.0-18.0); Mean Corpuscular HGB Conc 32.2 g/dl (31.0-36.0); Mean Corpuscular Hemoglobin 27.7 pg (27.0-33.0); Mean Corpuscular Volume 86.1 fL (80.0-98.0); Mean Platelet Volume 9.7 fL (9.4-12.4); Platelet Count 406 X10*3/uL (160-400); Red Blood Count 5.74 X10*6/uL (4.60-5.80); Red Cell Distribution Width 13.6 % (11.0-16.0); White Blood Count 9.4 X10*3/uL (4.8-10.8)
[2024-07-15 10:40] LABS: Estimated Average Glucose 114 mg/dL; Hemoglobin A1C 161.2681 umol/L; Hemoglobin A1c % 5.6 % (<6.0); Total Hemoglobin (HGBA1C) 4245.1178 umol/L
--- OUTSIDE RECORDS SUMMARY | 2024-07-15 10:48 | XMS_ITS | Continuity of Care Document ---
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 ? ? Increase in asthma symptoms If yes, inhaler use: Reaction to last injections: No If yes: ? ? ? Allergy Symptoms: Other: ? ? ? Missed: Dose Aware of Vial Test Notes:? ? ? [email or web address] Not available 07/10/2024 13:23:17 Plan of Treatment Reminders Order Date Submit Date Provider Last Modified By Organization Details Last Modified Time Details Appointments [facility]- Allergy f-up 6mon 2024 01:00P M BEN [...] Address Organization Details Recorded Time Allergic rhinitis [id number] Active 2023 Allergic rhinitis: Due to other [...] ; Start Date : 3 Not Available [facility] 4 01:14:26 Chronic rhinitis 98601729 Active 2022 Chronic rhinitis; Note: Date Diagnosed : 06/09/2022 10:57 AM (J31.0) Not Available [facility] 4 03:02:25 Sensorine ural hearing loss of bilateral ears 662481757 Active 2022 Sensorine ural hearing loss, bilateral ; Note: Date Diagnosed : 09/16/2022 10:23 AM (H90.3) Not Available [facility] 4 03:02:25 Snoring 08433832 Active 2022 Snoring; Note: Date Diagnosed : 06/09/2022 10:57 AM (R06.83) Not Available [facility] 4 03:02:26 Bilateral tinnitus [id number] 02 Active 2022 Tinnitus, bilateral ; Note: Date Diagnosed : 06/09/2022 10:57 AM (H93.13) Not Available [facility] 4 03:02:24 Perennial allergic rhinitis 766906906 Active 2023 CORTES WALSH RN [address] [place] [address], [facility] [place], [address] , [place] [facility] 13:45:34 Problem Notes None recorded. Procedures Surgical History Date Name Laterality Status Provider Name and Address Organization Details Recorded Time 07/11/19 25 Allergy Immunotherapy Injections completed SWATI LARA [address], [place], [address], [place] [facility] 07/10/2024 13:23:12 07/04/19 25 Allergy Immunotherapy Injections completed SWATI LARA [address], [place], [address], [place] [facility] 07/03/2024 13:12:29 06/27/19 25 Allergy Immunotherapy Injections completed SWATI LARA [address] [place] [address], [address], [place] [facility] 06/26/2024 13:07:30 06/20/19 25 Allergy Immunotherapy Injections completed SWATI LARA [address] [place] [address], [address], [place] [facility] 06/19/2024 13:47:43 06/13/19 25 Allergy Immunotherapy Injections completed CORTES WALSH RN 100 [facility] [place],[address] [place] [address], [address], [place] [facility] 06/12/2024 14:46:09 06/05/19 25 Allergy Immunotherapy Injections completed SONJA OH RMReji [address] [place] [address], [address], [place] [facility] 06/05/2024 14:29:22 05/29/19 25 Allergy Immunotherapy Injections completed SONJA OH RMA [address] [place] [address], [address], [place] [facility] 05/29/2024 13:53:39 05/22/19 25 Allergy Immunotherapy Injections completed CORTES WALSH RN [address] [place] [address], [address], [place] [facility] 05/22/2024 13:38:06 05/15/19 25 Allergy Immunotherapy Injections completed SWATI LARA [address], [place], [address], [place] [facility] 05/15/2024 14:30:43 05/08/19 25 Allergy Immunotherapy Injections completed SOJNA OH, RMA [address], [place], [address], [place] [facility] 05/08/2024 13:52:53 05/01/19 25 Allergy Immunotherapy Injections completed CORTES WALSH RN [address], [place], [address], [place] [facility] 05/01/2024 13:58:22 04/26/19 25 Allergy Immunotherapy Injections completed CORTES WALSH RN [facility], [place], [address], [place] [facility] 04/26/2024 14:09:06 04/17/19 25 Allergy Immunotherapy Injections completed SONJA OH, RMA [address], [place], [address], [place] [facility] 04/17/2024 14:52:46 04/12/19 25 Allergy Immunotherapy Injections completed SONJA OH RMA [address] [facility], [place], [address], [place] [facility] 04/12/2024 14:15:27 04/05/20 24 Allergy Immunotherapy Injections completed CORTES WALSH RN [facility], [place], [address], [place] [facility] 04/05/2024 13:59:44 03/29/20 24 Allergy Immunotherapy Injections completed SWATI LARA [address], [place], [address], [place] [facility] 03/29/2024 12:16:50 03/20/20 24 Allergy Immunotherapy Injections completed SONJA OH RMA [address], [place], [address], [place] [facility] 03/20/2024 13:34:37 03/13/20 24 Allergy Immunotherapy Injections completed VINNY LARAA [address], [place], [address], [place] [facility] 03/13/2024 13:26:42 03/06/20 24 Allergy Immunotherapy Injections completed SONJA OH RMA [address], [place], [address], [place] [facility] 03/06/2024 13:00:43 02/28/20 24 Allergy Immunotherapy Injections completed CORTES WALSH RN [facility], [place], [address], [place] [facility] 02/28/2024 13:24:24 02/22/20 24 Allergy Immunotherapy Injections completed SWATI LARA [address] [facility], [place], [address], [place] [facility] 02/22/2024 13:21:07 02/14/20 24 Allergy Immunotherapy Injections completed SWATI LARA [address] [facility],[address] [facility], [place], [address], [place] [facility] 02/14/2024 13:52:18 02/07/20 24 Allergy Immunotherapy Injections completed SONJA OH RMA [address] [place] [address], [address], [place] [facility] 02/07/2024 15:09:57 01/31/20 24 Allergy Immunotherapy Injections completed CORTES WALSH RN 100 [facility] [place],[address] [place] [address], [address], [place] [facility] 01/31/2024 14:53:00 01/24/20 24 Allergy Immunotherapy Injections completed SWATI LARA [address] [place] [address], [address], [place] [facility] 01/24/2024 13:50:01 01/17/20 24 Allergy Immunotherapy Injections completed CORTES WALSH RN [address] [facility], [place], [address], [place] [facility] 01/17/2024 13:32:44 01/10/20 24 Allergy Immunotherapy Injections completed SONJA OH, RMA [address], [place], [address], [place] [facility] 01/10/2024 14:22:39 01/03/20 24 Allergy Immunotherapy Injections completed SWATI LARA [address], [place], [address], [place] [facility] 01/03/2024 13:05:53 12/27/19 24 Allergy Immunotherapy Injections completed SWATI LARA [address], [place], [address], [place] [facility] 12/27/2023 13:24:25 12/20/19 24 Allergy Immunotherapy Injections completed CORTES WALSH RN [facility], [place], [address], [place] [facility] 12/20/2023 14:39:13 12/14/19 24 Allergy Immunotherapy Injections completed CORTES WALSH RN 100 [facility],[address], [place], [address], [place] [facility] 12/14/2023 13:59:07 12/06/19 24 Allergy Immunotherapy Injections completed SWATI LARA [address] [place] [address], [address], [place] [facility] 12/06/2023 13:42:56 11/29/19 24 Allergy Immunotherapy Injections completed CORTES WALSH RN [address] [facility] [place] [address], [address], [place] [facility] 11/29/2023 16:38:38 11/22/19 24 Allergy Immunotherapy Injections completed SWATI LARA [address] [facility], [place], [address], [place] [facility] 11/22/2023 13:41:22 11/15/19 24 Allergy Immunotherapy Injections completed SONJA OH RMA [address], [place], [address], [place] [facility] 11/15/2023 13:10:48 11/08/19 24 Allergy Immunotherapy Injections completed SWATI BERGER [address], [place], [address], [place] [facility] 11/08/2023 13:18:59 11/01/19 24 Allergy Immunotherapy Injections completed CORTES WALSH RN 100 [facility],[address] [place] [address], [address], [place] [facility] 11/01/2023 13:24:50 10/25/19 24 Allergy Immunotherapy Injections completed CORTES WALSH RN [address] [facility],[address] [facility], [place], [address], [place] [facility] 10/25/2023 13:51:27 10/18/19 24 Allergy Immunotherapy Injections completed CORTES WALSH RN 100 [facility],[address] [place] [address], [address], [place] [facility] 10/18/2023 16:21:59 10/11/19 24 Allergy Immunotherapy Injections completed CORTES WALSH RN [address] [facility],[address] [place] [address], [address], [place] [facility] 10/11/2023 13:54:23 10/04/19 24 Allergy Immunotherapy Injections completed SWATI LARA [address] [facility],[address] [place] [address], [address], [place] [facility] 10/04/2023 13:16:19 09/20/19 24 Allergy Immunotherapy Injections completed SWATI BERGER [address] [facility], [place], [address], [place] [facility] 09/20/2023 13:05:19 09/13/19 24 Allergy Immunotherapy Injections completed SWATI LARA [address] [facility],[address] [place] [address], [address], [place] [facility] 09/13/2023 13:26:32 09/06/19 24 Allergy Immunotherapy Injections completed SWATI LARA [address] [facility],[address] [place] [address], [address], [place] [facility] 09/06/2023 13:07:18 08/30/19 24 Allergy Immunotherapy Injections completed SWATI LARA [address] [facility],[address], [address], [facility] - [facility] 08/30/2023 13:10:22 08/23/19 24 Allergy Immunotherapy Injections completed CORTES WALSH RN 100 [facility],[address], [address], [facility] - [facility] 08/23/2023 13:46:59 Imaging Results None recorded. Procedure [...] sustained -release 06/09 completed Medicati on ID: [id number] B rand Name: bupropio n HCl Send Method: E-Prescr ibed Sub s Allowed: subs OK Medic ationGen ericName : bupropio n HCl Not Available Not Available Not Available clonidine HCl 0.1 mg tablet TAKE 1 TABLET BY MOUTH EVERY DAY NEEDED active Not Available Not Available No t Available prednison e 10 mg tablet 06/09 completed Medicati on ID: [id number] B rand Name: predniso ne Send Method: E-Prescr ibed Sub s Allowed: subs OK Medic ationGen ericName : predniso ne Not Available Not Available Not Available nicotine 14 mg/24 hr daily transderm al patch 06/09 completed Medicati on ID: [id number] B rand Name: nicotine Send Method: E-Prescr [...] mg tablet 06/09 completed Medicati on ID: [id number] B rand Name: lisinopr il Send Method: [...] suspensio n 06/09 completed Medicati on ID: [id number] B rand Name: Milk of Magnesia Send [...] mg capsule 06/09 completed Medicati on ID: [id number] B rand Name: prazosin Send Method: E-Prescr [...] layed release 06/09 completed Medicati on ID: [id number] B rand Name: pantopra zole Sen d [...] mg tablet 06/09 completed Medicati on ID: [id number] B rand Name: lisinopr il Send Method: E-Prescr ibed Sub s Allowed: subs OK Medic ationGen ericName : lisinopr il Not Available Not Available Not Available nicotine 21 mg/24 hr daily transderm al patch 06/09 completed Medicati on ID: [id number] B rand Name: nicotine Send Method: E-Prescr [...] unit) capsule 06/09 completed Medicati on ID: [id number] B rand Name: Vitamin D2 Send Method: [...] mg capsule 06/09 completed Medicati on ID: [id number] B rand Name: prazosin Send Method: E-Prescr ibed Sub s Allowed: subs OK Medic ationGen ericName : prazosin Not Available Not Available Not Available Vitamin B-12 1,000 mcg tablet 06/09 completed Medicati on ID: [id number] B rand Name: Vitamin B-12 Sen d [...] mg capsule 06/09 completed Medicati on ID: [id number] B rand Name: atomoxet ine Send Method: E-Prescr ibed Sub s Allowed: subs OK Medic ationGen ericName : atomoxet ine Not Available Not Available Not Available atomoxeti ne 60 mg capsule TAKE 1 CAPSULE BY MOUTH EVERY DAY IN THE MORNING active Not Available Not Available No t Available nicotine (polacril ex) 2 mg buccal lozenge 06/09 completed Medicati on ID: [id number] B rand Name: nicotine (polacri cuauhtemoc) Sen [...] aerosol inhaler 06/09 completed Medicati on ID: [id number] B rand Name: levalbut ale tartrate Send [...] mcg tablet 06/09 completed Medicati on ID: [id number] B rand Name: High Potency Multivit (w-iron) [...] SNOMED-CT Code Diagnosis ICD10 Code Diagnosis Note [id number] CORTES WALSH RN Allergy [address] [place] [address] 06/12/2024 14:45:26 06/12/2024 14:50:18 Perennial allergic rhinitis [id number] J30.89 [id number] [facility] Allergy [address] [place] [address] 06/19/2024 13:46:05 06/19/2024 13:59:57 Perennial allergic rhinitis 433440144 J30.89 48451 CIARA GUILLORY [facility] Allergy [address] [place] [address] 06/26/2024 13:06:46 06/26/2024 13:08:13 Perennial allergic rhinitis [id number] J30.89 02711 CIARA GUILLORY [facility] Allergy [address] [place] [address] 07/03/2024 13:11:54 07/03/2024 13:12:48 Perennial allergic rhinitis 246506850 J30.89 85484 CIARA GUILLORY [facility] Allergy [address] [place] [address] 07/10/2024 13:22:10 07/10/2024 13:23:32 Perennial allergic rhinitis 787010246 J30.89 Health Concerns Section Related Observation LastModified by Organization Detmiguel sosa LastModified Time None Recorded Concern Status LastModified by Organization Details LastModified Time None Recorded Payers Encounter Date Sequence Insurance Name Policy Number Policy Miller Covered Member ID Miller Member ID Guarantor Name 07/10/2024 2 [place] [facility] Luis Hu [id number] Luis Hu 07/10/2024 1 [place] B[place] [employer] Luis Hu [id number] Luis Hu
--- OUTSIDE RECORDS SUMMARY | 2024-07-15 10:49 | XMS_ITS | Data Portability ---
Author Organization [place] [facility], Allergy Address [address] [address] Care Team Providers Care Digital Designer Name Role Phone CASSANDRA BECK Primary [...] Aware of Vial Test Notes:? ? ? [email or web address] Not available 06/19/2024 13:48:05 06/26/2024 06/26/2024 Visit With: Ciara Guillory Use of Antihistamine s: No If yes: Vial Test Change in medications: No If yes ? ? ? Increase in asthma symptoms If yes, inhaler use: Reaction to last injections: No If yes: ? ? ? Allergy Symptoms: Other: ? ? ? Missed: Dose Aware of Vial Test Notes:? ? ? [email or web address] Not available 06/26/2024 13:07:35 07/03/2024 07/03/2024 Visit With: Ciara Guillory Use of Antihistamine s: No If yes: Vial Test Change in medications: No If yes ? ? ? Increase in asthma symptoms If yes, inhaler use: Reaction to last injections: No If yes: ? ? ? Allergy Symptoms: Other: ? ? ? Missed: Dose Aware of Vial Test Notes:? ? ? [email or web address] Not available 07/03/2024 13:12:34 07/10/2024 07/10/2024 Visit With: Ciara Guillory Use of Antihistamine s: No If yes: Vial Test Change in medications: No If yes ? ? ? Increase in asthma symptoms If yes, inhaler use: Reaction to last injections: No If yes: ? ? ? Allergy Symptoms: Other: ? ? ? Missed: Dose Aware of Vial Test Notes:? ? ? [email or web address] Not available 07/10/2024 13:23:17 Plan of Treatment Reminders Order Date Submit Date Provider Last Modified By Organization Details Last Modified Time Details Appointments [facility]- Allergy f-up 6mon 2024 01:00P M [...] Address Organization Details Recorded Time Allergic rhinitis [id number] Active 2023 Allergic rhinitis: Due to other [...] 1:20 PM (477.8) ; Start Date : Allergi c rhinitis: Due to other allergen; Note: Date Diagnosed : 03/15/2023 9:43 AM (477.8) Note: Date Diagnosed : 03/15/2023 9:43 AM (477.8) ; Start Date : Allergi c rhinitis: Due to other allergen; Note: Date Diagnosed : 10:26 AM (477.8) Note: Date Diagnosed : 10:26 AM (477.8) ; Start Date : [...] [facility] 4 01:14:26 Chronic rhinitis 99592066 Active 2022 Chronic rhinitis; Note: Date Diagnosed : 06/09/2022 10:57 AM (J31.0) Not Available [facility] 4 03:02:25 Sensorine ural hearing loss of bilateral ears 020563159 Active 2022 Sensorine ural hearing loss, bilateral ; Note: Date Diagnosed : 09/16/2022 10:23 AM (H90.3) Not Available [facility] 4 03:02:25 Snoring 86237228 Active 2022 Snoring; Note: Date Diagnosed : 06/09/2022 10:57 AM (R06.83) Not Available [facility] 4 03:02:26 Bilateral tinnitus [id number] 02 Active 2022 Tinnitus, bilateral ; Note: Date Diagnosed : 06/09/2022 10:57 AM (H93.13) Not Available [facility] 4 03:02:24 Perennial allergic rhinitis 273682682 Active 2023 CORTES WALSH RN 100 [facility],[place] [address], [place], [address] , [facility] - [facility] 4 13:45:34 Problem Notes None recorded. Procedures Surgical History Date Name Laterality Status Provider Name and Address Organization Details Recorded Time 07/11/19 25 Allergy Immunotherapy Injections completed SWATI LARA 100 [facility],[place] [address], [place], [address], [place] [facility] 07/10/2024 13:23:12 07/04/19 25 Allergy Immunotherapy Injections completed SWATI LARA [address],[place] [address], [place], [address], [place] [facility] 07/03/2024 13:12:29 06/27/19 25 Allergy Immunotherapy Injections completed CIARA GUILLORY RMA [address],[place] [address], [place], [address], [place] [facility] 06/26/2024 13:07:30 06/20/19 25 Allergy Immunotherapy Injections completed CIARA GUILLORY RMA [address],[place] [address], [place], [address], [place] [facility] 06/19/2024 13:47:43 06/13/19 25 Allergy Immunotherapy Injections completed CORTES WALSH RN [address],[place] [address] [place] [address], [address], [place] [facility] 06/12/2024 14:46:09 06/05/19 25 Allergy Immunotherapy Injections completed SONJA OH RMA [address], [place], [address], [place] [facility] 06/05/2024 14:29:22 05/29/19 25 Allergy Immunotherapy Injections completed SONJA OH RMA [address],[place] [address], [place], [address], [place] [facility] 05/29/2024 13:53:39 05/22/19 25 Allergy Immunotherapy Injections completed CORTES WALSH RN [address], [place], [address], [place] [facility] 05/22/2024 13:38:06 05/15/19 25 Allergy Immunotherapy Injections completed CIARA GUILLORY RMA [address],[place] [address], [place], [address], [place] [facility] 05/15/2024 14:30:43 05/08/19 25 Allergy Immunotherapy Injections completed SONJA OH RMA [address],[place] [address], [place], [address], [place] [facility] 05/08/2024 13:52:53 05/01/19 25 Allergy Immunotherapy Injections completed CORTES WALSH RN [address],[place] [address] [place] [address], [address], [place] [facility] 05/01/2024 13:58:22 04/26/19 25 Allergy Immunotherapy Injections completed CORTES WALSH RN [address],[place] [address], [place], [address], [place] [facility] 04/26/2024 14:09:06 04/17/19 25 Allergy Immunotherapy Injections completed SONJA OH, RMA [address],[place] [address] [place] [address], [address], [place] [facility] 04/17/2024 14:52:46 04/12/19 25 Allergy Immunotherapy Injections completed SONJA OH, RMA [address],[place] [address] [place] [address], [address], [place] [facility] 04/12/2024 14:15:27 04/05/20 24 Allergy Immunotherapy Injections completed CORTES WALSH RN [address],[place] [address] [place] [address], [address], [place] [facility] 04/05/2024 13:59:44 03/29/20 24 Allergy Immunotherapy Injections completed CIARA GUILLORY RMReji [address],[place] [address] [place] [address], [address], [place] [facility] 03/29/2024 12:16:50 03/20/20 24 Allergy Immunotherapy Injections completed SONJA OH, RMA [address],[place] [address], [place], [address], [place] [facility] 03/20/2024 13:34:37 03/13/20 24 Allergy Immunotherapy Injections completed CIARA GUILLORY RMA [address],[place] [address], [place], [address], [place] [facility] 03/13/2024 13:26:42 03/06/20 24 Allergy Immunotherapy Injections completed SONJA OH, RMA [address],[place] [address], [place], [address], [place] [facility] 03/06/2024 13:00:43 02/28/20 24 Allergy Immunotherapy Injections completed CORTES WALSH RN [address] [facility] [place] [address] [place] [address], [address], [place] [facility] 02/28/2024 13:24:24 02/22/20 24 Allergy Immunotherapy Injections completed SWATI LARA [address],[place] [address] [place] [address], [address], [place] [facility] 02/22/2024 13:21:07 02/14/20 24 Allergy Immunotherapy Injections completed SWATI LARA [address] [facility] [place] [address] [place] [address], [address], [place] [facility] 02/14/2024 13:52:18 02/07/20 24 Allergy Immunotherapy Injections completed SONJA OH Reji [address] [facility] [place] [address] [place] [address], [address], [place] [facility] 02/07/2024 15:09:57 01/31/20 24 Allergy Immunotherapy Injections completed CORTES WALSH RN [address] [facility] [place],[address], [address], [place] [facility] 01/31/2024 14:53:00 01/24/20 24 Allergy Immunotherapy Injections completed SWATI LARA [address],[place] [address] [place] [address], [address], [place] [facility] 01/24/2024 13:50:01 01/17/20 24 Allergy Immunotherapy Injections completed CORTES WALSH RN [address],[place] [address] [place] [address], [address], [place] [facility] 01/17/2024 13:32:44 01/10/20 24 Allergy Immunotherapy Injections completed SONJA OH RMReji [address],[place] [address] [place] [address], [address], [place] [facility] 01/10/2024 14:22:39 01/03/20 24 Allergy Immunotherapy Injections completed SWATI LARA [address],[place] [address] [place] [address], [address], [place] [facility] 01/03/2024 13:05:53 12/27/19 24 Allergy Immunotherapy Injections completed SWATI LARA [address],[place] [address] [place] [address], [address], [place] [facility] 12/27/2023 13:24:25 12/20/19 24 Allergy Immunotherapy Injections completed CORTES WALSH RN [address] [facility] [place] [address], [place], [address], [place] [facility] 12/20/2023 14:39:13 12/14/19 24 Allergy Immunotherapy Injections completed CORTES WALSH RN [address] [facility] [place] [address] [place] [address], [address], [place] [facility] 12/14/2023 13:59:07 12/06/19 24 Allergy Immunotherapy Injections completed SWATI LARA [address] [facility] [place] [address] [place] [address], [address], [place] [facility] 12/06/2023 13:42:56 11/29/19 24 Allergy Immunotherapy Injections completed CORTES WALSH RN [address] [facility] [place] [address] [place] [address], [address], [place] [facility] 11/29/2023 16:38:38 11/22/19 24 Allergy Immunotherapy Injections completed SWATI LARA [address],[place] [address] [place] [address], [address], [place] [facility] 11/22/2023 13:41:22 11/15/19 24 Allergy Immunotherapy Injections completed SONJA OH RMReji [address],[place] [address], [place], [address], [place] [facility] 11/15/2023 13:10:48 11/08/19 24 Allergy Immunotherapy Injections completed SONJA OH RMReji [address],[place] [address], [place], [address], [place] [facility] 11/08/2023 13:18:59 11/01/19 24 Allergy Immunotherapy Injections completed CORTES WALSH RN [address] [facility] [place] [address], [place], [address], [place] [facility] 11/01/2023 13:24:50 10/25/19 24 Allergy Immunotherapy Injections completed CORTES WALSH RN [address] [facility] [place] [address], [place], [address], [place] [facility] 10/25/2023 13:51:27 10/18/19 24 Allergy Immunotherapy Injections completed CORTES WALSH RN [address] [facility] [place] [address], [place], [address], [place] [facility] 10/18/2023 16:21:59 10/11/19 24 Allergy Immunotherapy Injections completed CORTES WALSH RN 100 [facility],[place] [address] [place] [address], [address], [place] [facility] 10/11/2023 13:54:23 10/04/19 24 Allergy Immunotherapy Injections completed SWATI LARA 100 [facility],[place] [address] [place] [address], [address], [place] [facility] 10/04/2023 13:16:19 09/20/19 24 Allergy Immunotherapy Injections completed SWATI BERGER [address],[place] [address] [place] [address], [address], [place] [facility] 09/20/2023 13:05:19 09/13/19 24 Allergy Immunotherapy Injections completed SWATI LARA [address] [facility] [place] [address] [place] [address], [address], [place] [facility] 09/13/2023 13:26:32 09/06/19 24 Allergy Immunotherapy Injections completed SWATI LARA [address],[place] [address] [place] [address], [address], [place] [facility] 09/06/2023 13:07:18 08/30/19 24 Allergy Immunotherapy Injections completed SWATI LARA [address] [address], [place], [address], [place] [facility] 08/30/2023 13:10:22 08/23/19 24 Allergy Immunotherapy Injections completed CORTES WALSH RN [address], [address], [facility] 08/23/2023 13:46:59 Imaging Results None recorded. [...] sustained -release 06/09 completed Medicati on ID: [id number] B rand Name: bupropio n HCl Send Method: E-Prescr ibed Sub s Allowed: subs OK Medic ationGen ericName : bupropio n HCl Not Available Not Available Not Available clonidine HCl 0.1 mg tablet TAKE 1 TABLET BY MOUTH EVERY DAY NEEDED active Not Available Not Available No t Available prednison e 10 mg tablet 06/09 completed Medicati on ID: [id number] B rand Name: predniso ne Send Method: E-Prescr ibed Sub s Allowed: subs OK Medic ationGen ericName : predniso ne Not Available Not Available Not Available nicotine 14 mg/24 hr daily transderm al patch 06/09 completed Medicati on ID: [id number] B rand Name: nicotine Send Method: E-Prescr [...] mg tablet 06/09 completed Medicati on ID: [id number] B rand Name: lisinopr il Send Method: [...] suspensio n 06/09 completed Medicati on ID: [id number] B rand Name: Milk of Magnesia Send [...] mg capsule 06/09 completed Medicati on ID: [id number] B rand Name: prazosin Send Method: E-Prescr [...] layed release 06/09 completed Medicati on ID: [id number] B rand Name: pantopra zole Sen d [...] mg tablet 06/09 completed Medicati on ID: [id number] B rand Name: lisinopr il Send Method: E-Prescr ibed Sub s Allowed: subs OK Medic ationGen ericName : lisinopr il Not Available Not Available Not Available nicotine 21 mg/24 hr daily transderm al patch 06/09 completed Medicati on ID: [id number] B rand Name: nicotine Send Method: E-Prescr [...] unit) capsule 06/09 completed Medicati on ID: [id number] B rand Name: Vitamin D2 Send Method: [...] mg capsule 06/09 completed Medicati on ID: [id number] B rand Name: prazosin Send Method: E-Prescr ibed Sub s Allowed: subs OK Medic ationGen ericName : prazosin Not Available Not Available Not Available Vitamin B-12 1,000 mcg tablet 06/09 completed Medicati on ID: [id number] B rand Name: Vitamin B-12 Sen d [...] mg capsule 06/09 completed Medicati on ID: [id number] B rand Name: atomoxet ine Send Method: E-Prescr ibed Sub s Allowed: subs OK Medic ationGen ericName : atomoxet ine Not Available Not Available Not Available atomoxeti ne 60 mg capsule TAKE 1 CAPSULE BY MOUTH EVERY DAY IN THE MORNING active Not Available Not Available No t Available nicotine (polacril ex) 2 mg buccal lozenge 06/09 completed Medicati on ID: [id number] B rand Name: nicotine (polacri cuauhtemoc) Sen [...] aerosol inhaler 06/09 completed Medicati on ID: [id number] B rand Name: levalbut ale tartrate Send [...] mcg tablet 06/09 completed Medicati on ID: [id number] B rand Name: High Potency Multivit (w-iron) [...] Diagnosis Note 367 NAGA FENG MD Allergy [address] [place] [address] 100 [place] [address] 08/23/2023 12:59:00 08/28/2023 15:54:15 Perennial allergic rhinitis [id number] J30.89 [id number] NAGA FENG MD Allergy [address] [place], [place] [address] [address] 08/30/2023 13:09:20 08/30/2023 15:51:52 Perennial allergic rhinitis [id number] J30.89 1862 CIARA GUILLORY [facility] Allergy [address] [place] [address] [address] [place] [address] 09/06/2023 13:06:32 09/06/2023 15:09:49 Perennial allergic rhinitis [id number] J30.89 [id number] CIARA GUILLORY [facility] Allergy [address] [place] [address] it [address] [place] [address] 09/13/2023 12:59:35 09/13/2023 15:03:23 Perennial allergic rhinitis [id number] J30.89 [id number] SONJA WHITE [facility] Allergy [address] [place] [address] it 100 [facility] [place] [address] 09/20/2023 12:56:21 09/20/2023 15:27:20 Perennial allergic rhinitis [id number] J30.89 5691 CIARA GUILLORY [facility] Allergy [address] [place] [address] it 100 [facility] [place] [address] 10/04/2023 13:15:10 10/04/2023 15:25:02 Perennial allergic rhinitis [id number] J30.89 [id number] CORTES WALSH RN Allergy [address] [place] [address], [address] [place] [address] 10/11/2023 12:57:15 10/11/2023 14:43:51 Perennial allergic rhinitis [id number] J30.89 7359 CORTES WALSH RN Allergy [address] [place] [address] [address] [place] [address] 10/18/2023 16:20:26 10/18/2023 16:42:25 Perennial allergic rhinitis [id number] J30.89 8293 CORTES WALSH RN Allergy [address] [place] [address] [address] [place] [address] 10/25/2023 13:50:03 10/25/2023 14:06:38 Perennial allergic rhinitis [id number] J30.89 9306 CORTES WALSH RN Allergy [address] [place] [address] [address] [place] [address] 11/01/2023 13:24:06 11/01/2023 13:25:32 Perennial allergic rhinitis [id number] J30.89 [id number] [facility] Allergy [address] [place] [address] [address] [place] [address] 11/08/2023 13:17:59 11/08/2023 15:02:25 Perennial allergic rhinitis [id number] J30.89 [id number] [facility] [address] [place] [address] [address] [place] [address] 11/15/2023 13:09:53 11/15/2023 13:32:39 Perennial allergic rhinitis [id number] J30.89 [id number] CIARA GUILLORY [facility] Allergy [address] [place] [address], [address] [place] [address] 11/22/2023 13:40:13 11/22/2023 13:45:52 Perennial allergic rhinitis [id number] J30.89 [id number] CORTES WALSH RN Allergy [address] [place] [address], [address] [place] [address] 11/29/2023 16:37:52 11/29/2023 16:39:18 Perennial allergic rhinitis [id number] J30.89 [id number] CIARA GUILLORY [facility] Allergy [address] [place] [address] [address] [place] [address] 12/06/2023 13:41:23 12/06/2023 14:12:43 Perennial allergic rhinitis [id number] J30.89 [id number] CORTES WALSH RN Allergy [address] [place] [address] [address] [place] [address] 12/14/2023 13:57:57 12/14/2023 14:00:02 Perennial allergic rhinitis [id number] J30.89 [id number] CORTES WALSH RN Allergy [address] [place] [address] [address] [place] [address] 12/20/2023 14:38:15 12/20/2023 14:39:43 Perennial allergic rhinitis [id number] J30.89 [id number] CIARA GUILLORY [facility] Allergy [address] [place] [address] [address] [place] [address] 12/27/2023 13:23:10 12/27/2023 14:12:08 Perennial allergic rhinitis [id number] J30.89 [id number] CIARA GUILLORY [facility] Allergy [address] [place] [address] [address] [place] [address] 01/03/2024 13:04:52 01/03/2024 14:58:04 Perennial allergic rhinitis [id number] J30.89 [id number] [facility] Allergy [address] [place] [address], [address] [place] [address] 01/10/2024 14:20:47 01/10/2024 14:24:00 Perennial allergic rhinitis [id number] J30.89 [id number] CORTES WALSH RN Allergy [address] [place] [address] [address] [place] [address] 01/17/2024 13:31:28 01/17/2024 13:33:16 Perennial allergic rhinitis [id number] J30.89 [id number] CIARA GUILLORY [facility] Allergy [address] [place] [address] it[address] 100 [place] [address] 01/24/2024 13:48:39 01/24/2024 13:50:25 Perennial allergic rhinitis [id number] J30.89 [id number] CORTES WALSH RN Allergy [address] [place] [address],[place] [address] [place] [address] 01/31/2024 14:52:11 01/31/2024 14:53:33 Perennial allergic rhinitis [id number] J30.89 [id number] [facility] All[facility] [address] [place] [address],[place] [address] [place] [address] 02/07/2024 15:08:33 02/07/2024 15:10:45 Perennial allergic rhinitis [id number] J30.89 [id number] CIARA GUILLORY A Allergy [address] [place] [address],[place] [address] [place] [address] 02/14/2024 13:51:33 02/14/2024 13:52:55 Perennial allergic rhinitis [id number] J30.89 [id number] CIARA GUILLORY [facility] Allergy [address] [place] [address], [address] [place] [address] 02/22/2024 13:20:22 02/22/2024 13:23:00 Perennial allergic rhinitis [id number] J30.89 [id number] CORTES WALSH RN Allergy [address] [place] [address],[place] [address] [place] [address] 02/28/2024 13:23:03 02/28/2024 13:25:05 Perennial allergic rhinitis [id number] J30.89 [id number] [facility] [address] [place] [address],[place] [address] [place] [address] 03/06/2024 12:59:46 03/06/2024 13:01:37 Perennial allergic rhinitis [id number] J30.89 [id number] CIARA GUILLORY A Allergy [address] [place] [address],[place] [address] [place] [address] 03/13/2024 13:25:49 03/13/2024 13:27:14 Perennial allergic rhinitis [id number] J30.89 [id number] [facility] Allergy [address] [place] [address],[place] [address] [place] [address] 03/20/2024 13:33:55 03/20/2024 13:47:01 Perennial allergic rhinitis [id number] J30.89 [id number] [address] [place] [address] 03/29/2024 12:15:49 03/29/2024 12:17:25 Perennial allergic rhinitis [id number] J30.89 [id number] CORTES WALSH RN Allergy [address] [place] [address] [address] [place] [address] 04/05/2024 13:58:53 04/05/2024 14:00:15 Perennial allergic rhinitis [id number] J30.89 [id number] [facility] Allergy [address] [place] [address] [address] [place] [address] 04/12/2024 14:13:32 04/12/2024 14:15:56 Perennial allergic rhinitis [id number] J30.89 [id number] [facility] Allergy [address] [place], [place] [address]e [address] [place] [address] 04/17/2024 14:52:03 04/17/2024 14:53:38 Perennial allergic rhinitis [id number] J30.89 [id number] CORTES WALSH RN Allergy [address] [place] [address] [address] [place] [address] 04/26/2024 14:08:32 04/26/2024 14:09:35 Perennial allergic rhinitis [id number] J30.89 [id number] CORTES WALSH RN Allergy [address] [place], [place] [address]e [address] [place] [address] 05/01/2024 13:50:10 05/01/2024 13:58:47 Perennial allergic rhinitis [id number] J30.89 [id number] [facility] Allergy [address] [place], [place] [address]e [address] [place] [address] 05/08/2024 13:52:18 05/08/2024 13:53:16 Perennial allergic rhinitis [id number] J30.89 [id number] [facility] BACK [facility] [address] [place] [address], [place] [address] 05/17/2024 12:46:49 05/17/2024 13:25:42 Perennial allergic rhinitis [id number] J30.89 Snoring [id number] R06.83 [id number] CIARA GUILLORY, [facility] Allergy [address] [place] [address],[place] [address] [place] [address] 05/15/2024 14:29:21 05/15/2024 14:31:20 Perennial allergic rhinitis [id number] J30.89 [id number] CORTES WALSH RN Allergy [address] [place] [address],[place] [address] [place] [address] 05/22/2024 13:37:40 05/22/2024 13:38:29 Perennial allergic rhinitis [id number] J30.89 [id number] [facility] Allergy [address] [place] [address],[place] [address] [place] [address] 05/29/2024 13:52:54 05/29/2024 13:54:35 Perennial allergic rhinitis [id number] J30.89 [id number] [facility] Allergy [address] [place] [address],[address] [place] [address] 06/05/2024 14:28:09 06/05/2024 14:29:51 Perennial allergic rhinitis [id number] J30.89 [id number] CORTES WALSH RN Allergy [address] [place] [address],[address] [place] [address] 06/12/2024 14:45:26 06/12/2024 14:50:18 Perennial allergic rhinitis [id number] J30.89 [id number] [facility] [facility] All[facility] [address] [place] [address],[address] [place] [address] 06/19/2024 13:46:05 06/19/2024 13:59:57 Perennial allergic rhinitis [id number] J30.89 [id number] CIARA GUILLORY, [facility] Allergy [address] [place] [address],[address] [place] [address] 06/26/2024 13:06:46 06/26/2024 13:08:13 Perennial allergic rhinitis [id number] J30.89 [id number] VINNY LAARA Allergy [address] [facility],[address] [place] [address] 07/03/2024 13:11:54 07/03/2024 13:12:48 Perennial allergic rhinitis [id number] J30.89 [id number] VINNY LARAA Allergy [address] [facility],[address] [place] [address] 07/10/2024 13:22:10 07/10/2024 13:23:32 Perennial allergic rhinitis [id number] J30.89 Health Concerns Section Related Observation LastModified by Organization Detai ls LastModified Time None Recorded Concern Status LastModified by Organization Details LastModified Time None Recorded Advance Directives Directive None Recorded Payers Encounter Date Sequence Insurance Name Policy Number Policy Miller Covered Member ID Miller Member ID Guarantor Name 06/12/2024 1 [facility] (MEDICAID HMO) FLAVIO Hu [id number] Luis Hu 06/19/2024 1 [facility] NET [facility] (MEDICAID HMO) FLAVIO Hu [id number] Luis Hu 06/26/2024 1 [facility] (MEDICAID HMO) FLAVIO Hu [id number] Luis Hu 07/03/2024 1 [facility] NET [facility] (MEDICAID HMO) FLAVIO Hu [id number] Luis Hu 07/10/2024 2 [place] [facility] Luis Hu [id number] Luis Hu 07/10/2024 1 [place]: [facility] [employer] Luis Hu [id number] Luis Hu
[2024-07-15 12:54] LABS: Alanine Aminotransferase 102 U/L (0-40); Albumin Level 4.7 g/dL (3.5-5.0); Anion Gap 16 (12-20); Aspartate Amino Transferase 52 U/L (5-37); Bilirubin Total 0.5 mg/dL (0.0-1.0); Blood Urea Nitrogen 12 mg/dL (9-16); Calcium 9.7 mg/dL (8.4-10.2); Carbon Dioxide 24 mmol/L (22-29); Chloride 105 mmol/L (96-108); Cholesterol 162 mg/dL (<200); Estimated Glomerular Filt Rate > 60; Glucose Fasting 90 mg/dL (60-99); HDL Cholesterol 36 mg/dL (>40); LDL Cholesterol Calculated 90 mg/dL (<100); Potassium 4.9 mmol/L (3.3-5.1); Sodium 140 mmol/L (135-145); Total Protein 8.7 g/dL (6.5-8.0); Triglycerides 183 mg/dL (<150); Vitamin D 25-OH Total 33.2 ng/mL (>30)
[2024-07-15 13:00] LABS: Alkaline Phosphatase 107 U/L (39-117)
== END 2024-07-15 09:33 | disposition home or self-care (01) ==
LOC: HO.LAB 09:32
PROVIDERS: PCP Physician Assistant; Visit Provider Physician Assistant
DX: E78.2 Mixed hyperlipidemia (principal); E55.9 Vitamin D deficiency, unspecified; R73.09 Other abnormal glucose
CPT/HCPCS: 36415; 80053; 80061; 82306; 83036; 85027

== ENCOUNTER 2024-08-23 08:00 | Outpatient (REF) | payer MEDICARE, MEDICAID, SELFPAY ==
--- NOTE | ~2024-08-23 | US_ITS ---
EXAMINATION: US ABDOMEN LIMITED WITH LIVER ELASTOGRAPHY HISTORY: R74.8 - Abnormal levels of other serum enzymes TECHNIQUE: Real-time grayscale ultrasound imaging of the right upper quadrant was performed and images were reviewed. COMPARISON: There are no prior studies for comparison. FINDINGS: Liver: The right lobe of the liver measures 18.0 cm in size. The left lobe of the liver measures 11.3 cm in size. The liver demonstrates increased echotexture, consistent with steatosis. There is focal fatty sparing adjacent to the gallbladder. No focal mass or intrahepatic biliary ductal dilatation is identified. There is normal hepatopedal flow in the portal vein. Ultrasound elastography of the liver was performed with 10 separate measurements of the liver parenchyma with the patient in the supine position. Measurements were obtained approximately 2 cm below Patel's capsule and perpendicular to the capsule. Images are of satisfactory quality. The median shear wave velocity is 1.18 m/s. The interquartile range/median (IQR/median) is 0.08. Gallbladder and biliary tree: There are multiple shadowing calculi in the gallbladder. There is no wall thickening or pericholecystic fluid. There is no sonographic Echols sign. The common bile duct is normal in caliber measuring 4 mm. Right Kidney: The right kidney measures 13.8 cm in length. The right kidney is unremarkable, without evidence of masses, hydronephrosis, or calculi. Pancreas: The pancreatic head, neck, and body are unremarkable. The pancreatic tail is obscured by bowel gas. Abdominal aorta and inferior vena cava: The visualized portions of the abdominal aorta and inferior vena cava are normal in caliber. There is no free fluid in the right upper quadrant. US/US abdomen vasquez w elastography IMPRESSION: Hepatomegaly and hepatic steatosis. The median shear wave velocity in the liver is 1.18 m/s, corresponding to a median liver stiffness of 4.26 kPa. The IQR/median value is 0.08. This is indicative of a quality data set. Findings are indicative of a normal elastography value with a low likelihood of severe fibrosis or cirrhosis. REFERENCE: Society of Radiologists in Ultrasound Liver Stiffness Thresholds (2019): LIVER STIFFNESS THRESHOLDS: *Shear wave velocity less than 1.3 m/s (Liver Stiffness equal or less than 5 kPa): High probability of being normal. *Shear wave velocity less than 1.7 m/s (Liver Stiffness less than 9 kPa): In the absence of other known clinical signs, rules out compensated advanced chronic liver disease. *Shear wave velocity between 1.7-2.1 m/s (Liver Stiffness 9-13 kPa): Suggestive of compensated advanced chronic liver disease but need further test for confirmation. *Shear wave velocity between 2.1-2.4 m/s (Liver Stiffness 13-17 kPa): Rules in compensated advanced chronic liver disease. *Shear wave velocity greater than 2.4 m/s (Liver Stiffness over 17 kPa): Suggestive of clinically significant portal hypertension. QUALITY OF DATA SET: *IQR/Median value equal or less than 0.15 implies a quality data set. *IQR/Median value over 0.15 implies a poor quality data set. SIGNIFICANT CHANGE FROM PRIOR EXAM: Significant change if liver stiffness measurement is 10% or greater from prior exam. OTHER CONSIDERATIONS: The stage of liver fibrosis may be overestimated in the setting of acute hepatitis, liver inflammation, elevated liver function tests, hepatic vascular congestion, obstructive cholestasis, non-fasting state, and infiltrative diseases such as amyloidosis and lymphoma. In some patients with NAFLD, the liver stiffness thresholds for compensated advanced chronic liver disease may be lower. In causes other than viral hepatitis and NAFLD, liver stiffness thresholds are not well established. Electronically signed by: Joon Epps MD 08/23/2024 09:23 AM EDT
--- OUTSIDE RECORDS SUMMARY | 2024-08-23 08:03 | XMS_ITS | Data Portability ---
Author Organization [place] - [facility], Allergy Address [address] [address] Care Team Providers Care Time Study Engineer Name Role Phone CASSANDRA BECK Primary Care [...] Aware of Vial Test Notes:? ? ? [email or web address] Not available 07/10/2024 13:23:17 07/17/2024 07/17/2024 Visit With: Cortes Walsh RN Use of Antihistamine s: No If yes: Vial Test Change in medications: No If yes ? ? ? Increase in asthma symptoms No Asthma Hx If yes, inhaler use: Reaction to last injections: No If yes: ? ? ? Allergy Symptoms: Other: ? ? ? Missed: Dose Aware of Vial Test Yes Notes:? ? ? [email or web address] Not available 07/17/2024 13:08:15 07/24/2024 07/24/2024 Visit With: SWATI Blanton Use of Antihistamine s: No If yes: Vial Test Yes Change in medications: No If yes ? ? ? Increase in asthma symptoms No Asthma Hx If yes, inhaler use: Reaction to last injections: No If yes: ? ? ? Allergy Symptoms: Other: ? ? ? Missed: Dose Aware of Vial Test Notes:? ? ?aware now biweekly [email or web address] Not available 07/24/2024 14:03:37 08/07/2024 08/07/2024 Visit With: Ciara Guillory Use of Antihistamine s: No If yes: Vial Test Change in medications: No If yes ? ? ? Increase in asthma symptoms If yes, inhaler use: Reaction to last injections: No If yes: ? ? ? Allergy Symptoms: Other: ? ? ? Missed: Dose Aware of Vial Test Notes:? ? ? [email or web address] Not available 08/07/2024 13:16:32 08/21/2024 08/21/2024 Visit With: Ciara Guillory Use of Antihistamine s: No If yes: Vial Test Change in medications: No If yes ? ? ? Increase in asthma symptoms If yes, inhaler use: Reaction to last injections: No If yes: ? ? ? Allergy Symptoms: Other: ? ? ? Missed: Dose Aware of Vial Test Notes:? ? ? [email or web address] Not available 08/21/2024 13:11:05 Plan of Treatment Reminders Order Date Submit [...] Address Organization Details Recorded Time Allergic rhinitis 37896836 Active 2023 Allergic rhinitis: Due to other [...] ; Start Date : 3 Not Available [facility] 4 01:14:26 Chronic rhinitis 25006593 Active 2022 Chronic rhinitis; Note: Date Diagnosed : 06/09/2022 10:57 AM (J31.0) Not Available [facility] 4 03:02:25 Sensorine ural hearing loss of bilateral ears 800434651 Active 2022 Sensorine ural hearing loss, bilateral ; Note: Date Diagnosed : 09/16/2022 10:23 AM (H90.3) Not Available [facility] 4 03:02:25 Snoring 51513053 Active 2022 Snoring; Note: Date Diagnosed : 06/09/2022 10:57 AM (R06.83) Not Available [facility] 4 03:02:26 Bilateral tinnitus 86818760011 02 Active 2022 Tinnitus, bilateral ; Note: Date Diagnosed : 06/09/2022 10:57 AM (H93.13) Not Available [facility] 4 03:02:24 Perennial allergic rhinitis 869336576 Active 2023 CORTES WALSH RN 100 [facility],[place] [address], [place], [address] , [facility] - [facility] 4 13:45:34 Problem Notes None recorded. Procedures Surgical History Date Name Laterality Status Provider Name and Address Organization Details Recorded Time 08/22/19 25 Allergy Immunotherapy Injections completed SWATI LARA 100 [facility],[place] [address], [place], [address], [place] - [facility] 08/21/2024 13:10:58 08/08/19 25 Allergy Immunotherapy Injections completed SWATI LARA [address],[place] [address], [address], [place] [facility] 08/07/2024 13:16:26 07/25/19 25 Allergy Immunotherapy Injections completed CORTES WALSH RN [address],[place] [address], [address], [place] [facility] 07/24/2024 14:03:12 07/18/19 25 Allergy Immunotherapy Injections completed CORTES WALSH RN [address],[place] [address] [place] [address], [address], [place] [facility] 07/17/2024 13:08:07 07/11/19 25 Allergy Immunotherapy Injections completed SWATI LARA [address],[place] [address] [place] [address], [address], [place] [facility] 07/10/2024 13:23:12 07/04/19 25 Allergy Immunotherapy Injections completed SWATI LARA [address],[place] [address] [place] [address], [address], [place] [facility] 07/03/2024 13:12:29 06/27/19 25 Allergy Immunotherapy Injections completed VINNY LARAA [address],[place] [address] [place] [address], [address], [place] [facility] 06/26/2024 13:07:30 06/20/19 25 Allergy Immunotherapy Injections completed SWATI LARA [address],[place] [address], [address], [place] [facility] 06/19/2024 13:47:43 06/13/19 25 Allergy Immunotherapy Injections completed CORTES WALSH RN [address],[place] [address], [address], [place] [facility] 06/12/2024 14:46:09 06/05/19 25 Allergy Immunotherapy Injections completed SWATI BLANTON [address],[place] [address], [address], [place] [facility] 06/05/2024 14:29:22 05/29/19 25 Allergy Immunotherapy Injections completed SONJA OH, RMA [address],[place] [address], [address], [place] [facility] 05/29/2024 13:53:39 05/22/19 25 Allergy Immunotherapy Injections completed CORTES WALSH RN [address],[place] [address], [address], [place] [facility] 05/22/2024 13:38:06 05/15/19 25 Allergy Immunotherapy Injections completed CIARA GUILLORY RMReji [address],[place] [address], [address], [place] [facility] 05/15/2024 14:30:43 05/08/19 25 Allergy Immunotherapy Injections completed SONJA OH, RMA [address],[place] [address] [place] [address], [address], [place] [facility] 05/08/2024 13:52:53 05/01/19 25 Allergy Immunotherapy Injections completed CORTES WALSH RN [address],[place] [address] [place] [address], [address], [place] [facility] 05/01/2024 13:58:22 04/26/19 25 Allergy Immunotherapy Injections completed CORTES WALSH RN [address],[place] [address] [place] [address], [address], [place] [facility] 04/26/2024 14:09:06 04/17/19 25 Allergy Immunotherapy Injections completed SONJA OH, RMA [address],[place] [address], [address], [place] [facility] 04/17/2024 14:52:46 04/12/19 25 Allergy Immunotherapy Injections completed SONJA OH, RMA [address],[place] [address], [address], [place] [facility] 04/12/2024 14:15:27 04/05/20 24 Allergy Immunotherapy Injections completed CORTES WALSH RN [address], [place], [address], [place] [facility] 04/05/2024 13:59:44 03/29/20 24 Allergy Immunotherapy Injections completed SWATI LARA [address],[place] [address] [place] [address], [address], [place] [facility] 03/29/2024 12:16:50 03/20/20 24 Allergy Immunotherapy Injections completed SONJA OH RMReji [address] [facility] [address],[place] [address], [address], [place] [facility] 03/20/2024 13:34:37 03/13/20 24 Allergy Immunotherapy Injections completed SWATI LARA [address] [facility],[place] [address] [place] [address], [address], [place] [facility] 03/13/2024 13:26:42 03/06/20 24 Allergy Immunotherapy Injections completed SONJA OH RMReji 100 [facility],[place] [address] [place] [address], [address], [place] [facility] 03/06/2024 13:00:43 02/28/20 24 Allergy Immunotherapy Injections completed CORTES WALSH RN 100 [facility],[address], [address], [place] [facility] 02/28/2024 13:24:24 02/22/20 24 Allergy Immunotherapy Injections completed SWATI LARA 100 [facility],[place] [address] [place] [address], [address], [place] [facility] 02/22/2024 13:21:07 02/14/20 24 Allergy Immunotherapy Injections completed SWATI LARA [address],[place] [address] [place] [address], [address], [place] [facility] 02/14/2024 13:52:18 02/07/20 24 Allergy Immunotherapy Injections completed SONJA OH RMReji [address],[place] [address], [address], [place] [facility] 02/07/2024 15:09:57 01/31/20 24 Allergy Immunotherapy Injections completed CORTES WALSH RN [address],[place] [address], [address], [place] [facility] 01/31/2024 14:53:00 01/24/20 24 Allergy Immunotherapy Injections completed SWATI LARA [address],[place] [address], [address], [place] [facility] 01/24/2024 13:50:01 01/17/20 24 Allergy Immunotherapy Injections completed CORTES WALSH RN [address],[place] [address], [address], [place] [facility] 01/17/2024 13:32:44 01/10/20 24 Allergy Immunotherapy Injections completed SWATI BLANTON [address],[place] [address] [place] [address], [address], [place] [facility] 01/10/2024 14:22:39 01/03/20 24 Allergy Immunotherapy Injections completed SWATI LARA [address] [facility],[place] [address] [place] [address], [address], [place] [facility] 01/03/2024 13:05:53 12/27/19 24 Allergy Immunotherapy Injections completed SWATI LARA [address],[place] [address] [place] [address], [address], [place] [facility] 12/27/2023 13:24:25 12/20/19 24 Allergy Immunotherapy Injections completed CORTES WALSH RN [address] [facility],[place] [address] [place] [address], [address], [place] [facility] 12/20/2023 14:39:13 12/14/19 24 Allergy Immunotherapy Injections completed CORTES WALSH RN [address],[place] [address] [place] [address], [address], [place] [facility] 12/14/2023 13:59:07 12/06/19 24 Allergy Immunotherapy Injections completed SWATI LARA [address],[place] [address], [address], [place] [facility] 12/06/2023 13:42:56 11/29/19 24 Allergy Immunotherapy Injections completed CORTES WALSH RN [address],[place] [address], [address], [place] [facility] 11/29/2023 16:38:38 11/22/19 24 Allergy Immunotherapy Injections completed SWATI LARA [address],[place] [address], [address], [place] [facility] 11/22/2023 13:41:22 11/15/19 24 Allergy Immunotherapy Injections completed SWATI BLANTON [address],[place] [address], [address], [place] [facility] 11/15/2023 13:10:48 11/08/19 24 Allergy Immunotherapy Injections completed SONJA OH RMReji [address],[place] [address] [place] [address], [address], [place] [facility] 11/08/2023 13:18:59 11/01/19 24 Allergy Immunotherapy Injections completed CORTES WALSH RN [address] [facility],[place] [address] [place] [address], [address], [place] [facility] 11/01/2023 13:24:50 10/25/19 24 Allergy Immunotherapy Injections completed CORTES WALSH RN [address] [facility],[place] [address] [place] [address], [address], [place] [facility] 10/25/2023 13:51:27 10/18/19 24 Allergy Immunotherapy Injections completed CORTES WALSH RN [address] [facility],[place] [address] [place] [address], [address], [place] [facility] 10/18/2023 16:21:59 10/11/19 24 Allergy Immunotherapy Injections completed CORTES WALSH RN [address],[place] [address] [place] [address], [address], [place] [facility] 10/11/2023 13:54:23 10/04/19 24 Allergy Immunotherapy Injections completed SWATI LARA [address],[place] [address], [address], [place] [facility] 10/04/2023 13:16:19 09/20/19 24 Allergy Immunotherapy Injections completed SONJA WHITEBenjamin, A [address], [place], [address], [facility] - [facility] 09/20/2023 13:05:19 09/13/19 24 Allergy Immunotherapy Injections completed CIARA GUILLORY, A [address], [place], [address], [place] [facility] 09/13/2023 13:26:32 09/06/19 24 Allergy Immunotherapy Injections completed CIARA JEY, A [address], [place], [address], [place] [facility] 09/06/2023 13:07:18 08/30/19 24 Allergy Immunotherapy Injections completed CIARA JEY, [facility] [address],[place] [facility], [place], [address], [facility] - [facility] 08/30/2023 13:10:22 08/23/19 24 Allergy Immunotherapy Injections completed CORTES WALSH RN 100 [facility],[address], [address], [facility] - [facility] 08/23/2023 13:46:59 Imaging Results None recorded. [...] sustained -release 06/09 completed Medicati on ID: [id number] B rand Name: bupropio n HCl Send Method: E-Prescr ibed Sub s Allowed: subs OK Medic ationGen ericName : bupropio n HCl Not Available Not Available Not Available clonidine HCl 0.1 mg tablet TAKE 1 TABLET BY MOUTH EVERY DAY NEEDED active Not Available Not Available No t Available prednison e 10 mg tablet 06/09 completed Medicati on ID: [id number] B rand Name: predniso ne Send Method: E-Prescr ibed Sub s Allowed: subs OK Medic ationGen ericName : predniso ne Not Available Not Available Not Available nicotine 14 mg/24 hr daily transderm al patch 06/09 completed Medicati on ID: [id number] B rand Name: nicotine Send Method: E-Prescr [...] mg tablet 06/09 completed Medicati on ID: [id number] B rand Name: lisinopr il Send Method: [...] suspensio n 06/09 completed Medicati on ID: [id number] B rand Name: Milk of Magnesia Send [...] mg capsule 06/09 completed Medicati on ID: [id number] B rand Name: prazosin Send Method: E-Prescr [...] Available No t Available nicotine (polacril ex) 4 mg gum CHEW 4 MG EVERY 2 HOURS NEEDED FOR NICOTINE CRAVINGS FOR 30 DAYS active Not Available Not Available No t Available pantopraz ole 40 mg tablet,de layed release 06/09 completed Medicati on ID: [id number] B rand Name: pantopra zole Sen d Method: E-Prescr ibed Sub s Allowed: subs OK Medic ationGen ericName : pantopra zole Not Available Not Available Not Available Prozac 20 mg capsule TAKE 1 CAPSULE BY MOUTH EVERY DAY active Not Available Not Available No t Available buspirone 30 mg tablet TAKE 1 TABLET BY MOUTH TWICE A DAY active Not Available Not Available No t Available buspirone 10 mg tablet TAKE 1 TABLET BY MOUTH THREE TIMES A DAY active Not Available Not Available No t Available lisinopri l 10 mg tablet 06/09 completed Medicati on ID: [id number] B rand Name: lisinopr il Send Method: E-Prescr ibed Sub s Allowed: subs [place] [facility] l[facility]opr il Not Available Not Available Not Available nicotine 21 mg/24 hr daily transderm al patch 06/09 completed Medicati on ID: [id number] B rand Name: nicotine Send Method: E-Prescr [...] unit) capsule 06/09 completed Medicati on ID: [id number] B rand Name: Vitamin D2 Send Method: E-Prescr ibed Sub s Allowed: subs [place] Medic ationGen ericName : Vitamin D2 Not Available Not Available Not Available fluticaso ne propionat e 50 mcg/actua [...] mg capsule 06/09 completed Medicati on ID: [id number] B rand Name: prazosin Send Method: E-Prescr ibed Sub s Allowed: subs [place] Medic ationGen ericName : prazosin Not Available Not Available Not Available Vitamin B-12 1,000 mcg tablet 06/09 completed Medicati on ID: [id number] B rand Name: Vitamin B-12 Sen d [...] mg capsule 06/09 completed Medicati on ID: [id number] B rand Name: atomoxet ine Send Method: E-Prescr ibed Sub s Allowed: subs [place] Medic ationGen ericName : atomoxet ine Not Available Not Available Not Available atomoxeti ne 60 mg capsule TAKE 1 CAPSULE BY MOUTH EVERY DAY IN THE MORNING active Not Available Not Available No t Available nicotine (polacril ex) 2 mg buccal lozenge 06/09 completed Medicati on ID: [id number] B rand Name: nicotine (polacri cuauhtemoc) Sen [...] Not Available Not Available No t Available lactulose 10 gram/15 mL oral solution TAKE 20 GRAMS (30 ML) BY MOUTH 2 TIMES A DAY NEEDED FOR LAXATIVE EFFECT FOR 15 DAYS active Not Available Not Available No t Available levalbute rol HFA 45 mcg/actua tion aerosol inhaler 06/09 completed Medicati on ID: [id number] B rand Name: levalbut ale tartrate Send [...] No t Available melatonin 10 mg capsule TAKE 1 CAPSULE BY MOUTH EVERYDAY AT BEDTIME active Not Available Not Available No t Available High Potency Multivita min (w-iron) 9 mg iron-400 mcg tablet 06/09 completed Medicati on ID: [id number] B rand Name: High Potency Multivit (w-iron) [...] Code Diagnosis ICD10 Code Diagnosis Note 367 CORTES WALSH RN Allergy 100 [facility], [address] [place] [address] 08/23/2023 12:59:00 08/28/2023 15:54:15 Perennial allergic rhinitis [id number] J30.89 1161 CIARA JEY, [facility] Allergy 100 [facility],[place] [address] [place] [address] 08/30/2023 13:09:20 08/30/2023 15:51:52 Perennial allergic rhinitis [id number] J30.89 1862 CIARA GUILLORY, [facility] Allergy [address] [place] [address],[place] [address] [place] [address] 09/06/2023 13:06:32 09/06/2023 15:09:49 Perennial allergic rhinitis [id number] J30.89 [id number] CIARA JEY, [facility] Allergy 100 [facility],[place] [address] [place] [address] 09/13/2023 12:59:35 09/13/2023 15:03:23 Perennial allergic rhinitis [id number] J30.89 [id number] [facility], [facility] Allergy [address] [place] [address], [address] [place] [address] 09/20/2023 12:56:21 09/20/2023 15:27:20 Perennial allergic rhinitis [id number] J30.89 [id number] CORTES WALSH RN Allergy [address] [place] [address], [address] [place] [address] 10/04/2023 13:15:10 10/04/2023 15:25:02 Perennial allergic rhinitis [id number] J30.89 [id number] CORTES WALSH RN Allergy [address] [place] [address], [address] [place] [address] 10/11/2023 12:57:15 10/11/2023 14:43:51 Perennial allergic rhinitis [id number] J30.89 7359 CORTES WALSH RN Allergy [address] [place] [address],[place] [address] [place] [address] 10/18/2023 16:20:26 10/18/2023 16:42:25 Perennial allergic rhinitis [id number] J30.89 [id number] CORTES WALSH RN Allergy [address] [place] [address], [address] [place] [address] 10/25/2023 13:50:03 10/25/2023 14:06:38 Perennial allergic rhinitis [id number] J30.89 [id number] CORTES WALSH RN Allergy [address] [place] [address],[place] [address] [place] [address] 11/01/2023 13:24:06 11/01/2023 13:25:32 Perennial allergic rhinitis [id number] J30.89 [id number] [facility], A Allergy [address] [place] [address],[place] [address] [place] [address] 11/08/2023 13:17:59 11/08/2023 15:02:25 Perennial allergic rhinitis [id number] J30.89 [id number] [facility], A Allergy [address] [place] [address],[place] [address] [place] [address] 11/15/2023 13:09:53 11/15/2023 13:32:39 Perennial allergic rhinitis [id number] J30.89 [id number] CORTES WALSH RN Allergy [address] [place] [address], [address] [place] [address] 11/22/2023 13:40:13 11/22/2023 13:45:52 Perennial allergic rhinitis [id number] J30.89 [id number] CORTES WALSH RN Allergy [address] [place] [address], [address] [place] [address] 11/29/2023 16:37:52 11/29/2023 16:39:18 Perennial allergic rhinitis [id number] J30.89 [id number] CIARA GUILLORY, [facility] Allergy [address] [place] [address],[place] [address] [place] [address] 12/06/2023 13:41:23 12/06/2023 14:12:43 Perennial allergic rhinitis [id number] J30.89 [id number] CORTES WALSH RN Allergy [address] [place] [address],[place] [address] [place] [address] 12/14/2023 13:57:57 12/14/2023 14:00:02 Perennial allergic rhinitis [id number] J30.89 [id number] CORTES WALSH RN Allergy [address] [place] [address],[place] [address] [place] [address] 12/20/2023 14:38:15 12/20/2023 14:39:43 Perennial allergic rhinitis [id number] J30.89 [id number] CIARA JEY [facility] Allergy [address] [place] [address], [address] [place] [address] 12/27/2023 13:23:10 12/27/2023 14:12:08 Perennial allergic rhinitis [id number] J30.89 [id number] CIARA JEY [facility] Allergy [address] [place] [address], [address] [place] [address] 01/03/2024 13:04:52 01/03/2024 14:58:04 Perennial allergic rhinitis [id number] J30.89 [id number] [facility], A Allergy [address] [place] [address], [address] [place] [address] 01/10/2024 14:20:47 01/10/2024 14:24:00 Perennial allergic rhinitis [id number] J30.89 [id number] CORTES WALSH RN Allergy [address] [place] [address] [address] [place] [address] 01/17/2024 13:31:28 01/17/2024 13:33:16 Perennial allergic rhinitis [id number] J30.89 [id number] CIARA JEY [facility] Allergy [address] [place] [address] [address] [place] [address] 01/24/2024 13:48:39 01/24/2024 13:50:25 Perennial allergic rhinitis [id number] J30.89 [id number] CIARA GUILLORY [facility] Allergy [address] [place] [address], [address] [place] [address] 01/31/2024 14:52:11 01/31/2024 14:53:33 Perennial allergic rhinitis [id number] J30.89 [id number] [facility], [facility] Allergy [address] [place] [address], [address] [place] [address] 02/07/2024 15:08:33 02/07/2024 15:10:45 Perennial allergic rhinitis [id number] J30.89 [id number] CORTES WALSH RN Allergy [address] [place] [address] [address] [place] [address] 02/14/2024 13:51:33 02/14/2024 13:52:55 Perennial allergic rhinitis [id number] J30.89 [id number] SONJA OH, RMA Allergy 100 [facility],[place] [address] [place] [address] 02/22/2024 13:20:22 02/22/2024 13:23:00 Perennial allergic rhinitis [id number] J30.89 [id number] SONJA OH, RMA Allergy [address] [place] [address],[place] [address] [place] [address] 02/28/2024 13:23:03 02/28/2024 13:25:05 Perennial allergic rhinitis [id number] J30.89 [id number] SONJA OH, A Allergy [address] [place] [address],[place] [address] [place] [address] 03/06/2024 12:59:46 03/06/2024 13:01:37 Perennial allergic rhinitis [id number] J30.89 [id number] CIARA GUILLORY [facility] Allergy [address] [place] [address],[place] [address] [place] [address] 03/13/2024 13:25:49 03/13/2024 13:27:14 Perennial allergic rhinitis [id number] J30.89 [id number] SONJA CHRISTOPHER, A Allergy [address] [place] [address],[place] [address] [place] [address] 03/20/2024 13:33:55 03/20/2024 13:47:01 Perennial allergic rhinitis [id number] J30.89 [id number] CORTES WALSH RN Allergy [address] [place] [address],[place] [address] [place] [address] 03/29/2024 12:15:49 03/29/2024 12:17:25 Perennial allergic rhinitis [id number] J30.89 [id number] CIARA GUILLORY [facility] Allergy [address] [place] [address],[address] [place] [address] 04/05/2024 13:58:53 04/05/2024 14:00:15 Perennial allergic rhinitis [id number] J30.89 [id number] SONJA CHRISTOPHER, RMA Allergy 100 [facility],[address] [place] [address] 04/12/2024 14:13:32 04/12/2024 14:15:56 Perennial allergic rhinitis [id number] J30.89 [id number] SONJA CHRISTOPHER, A Allergy [address] [place] [address],[place] [address] 100 [place] [address] 04/17/2024 14:52:03 04/17/2024 14:53:38 Perennial allergic rhinitis [id number] J30.89 85775 CORTES WALSH RN Allergy [address] [place], [place] [address]e 100 [place] [address] 04/26/2024 14:08:32 04/26/2024 14:09:35 Perennial allergic rhinitis [id number] J30.89 32822 CORTES WALSH RN Allergy [address] [place], [place] [address] 100 [place] [address] 05/01/2024 13:50:10 05/01/2024 13:58:47 Perennial allergic rhinitis [id number] J30.89 05516 [facility] Allergy [address] [place] [address],[facility] 100 [place] [address] 05/08/2024 13:52:18 05/08/2024 13:53:16 Perennial allergic rhinitis [id number] J30.89 03829 PILO STOUT PA-C [facility] [address] [place] [address] 05/17/2024 12:46:49 05/17/2024 13:25:42 Perennial allergic rhinitis [id number] J30.89 Snoring [id number] R06.83 14409 CIARA GUILLORY, [facility] Allergy [address] [place] [address], [address] [place] [address] 05/15/2024 14:29:21 05/15/2024 14:31:20 Perennial allergic rhinitis [id number] J30.89 24549 CORTES WALSH RN Allergy [address] [place] [address], [address] [place] [address] 05/22/2024 13:37:40 05/22/2024 13:38:29 Perennial allergic rhinitis [id number] J30.89 40881 [facility], RMA Allergy [address] [place] [address],[address] [place] [address] 05/29/2024 13:52:54 05/29/2024 13:54:35 Perennial allergic rhinitis [id number] J30.89 46818 SONJA WHITE, A Allergy 100 [facility],[address] [place] [address] 06/05/2024 14:28:09 06/05/2024 14:29:51 Perennial allergic rhinitis [id number] J30.89 13043 CORTES WALSH RN Allergy [address] [place] [address],[address] [address] [place] [address] 06/12/2024 14:45:26 06/12/2024 14:50:18 Perennial allergic rhinitis [id number] J30.89 76762 CIARA GUILLORY, [facility] Allergy [address] [place] [address],[address] [place] [address] 06/19/2024 13:46:05 06/19/2024 13:59:57 Perennial allergic rhinitis [id number] J30.89 01141 CIARA GUILLORY, [facility] Allergy [address] [place] [address],[address] [place] [address] 06/26/2024 13:06:46 06/26/2024 13:08:13 Perennial allergic rhinitis [id number] J30.89 97275 CIARA GUILLORY, [facility] Allergy [address] [place] [address],[address] [place] [address] 07/03/2024 13:11:54 07/03/2024 13:12:48 Perennial allergic rhinitis [id number] J30.89 03671 CIARA GUILLORY, [facility] Allergy [address] [place] [address],[address] [place] [address] 07/10/2024 13:22:10 07/10/2024 13:23:32 Perennial allergic rhinitis [id number] J30.89 85039 CORTES WALSH RN Allergy [address] [place] [address],[address] [place] [address] 07/17/2024 13:07:42 07/17/2024 13:08:47 Perennial allergic rhinitis [id number] J30.89 87635 CORTES WALSH RN Allergy 100 [facility],[address] [address] 100 [place] [address] 07/24/2024 14:02:27 07/24/2024 14:04:11 Perennial allergic rhinitis [id number] J30.89 16570 CIARA GUILLORY [facility] Allergy 100 [facility],[address] [address] [place] [address] 08/07/2024 13:15:21 08/07/2024 13:16:48 Perennial allergic rhinitis [id number] J30.89 90517 CIARA GUILLORY Reji Allergy 100 [facility],[address] [place] [address] 08/21/2024 13:10:09 08/21/2024 13:19:25 Perennial allergic rhinitis [id number] J30.89 Health Concerns Section Related Observation LastModified by Organization Detai ls LastModified Time None Recorded Concern Status LastModified by Organization Details LastModified Time None Recorded Advance Directives Directive None Recorded Payers Insurance Date Sequence Insurance Name Policy Number Policy Miller Covered Member ID Miller Member ID Guarantor Name 07/10/2024 1 [facility]ID HMO) [facility] Luis Hu [id number] Luis Hu 08/21/2024 2 [place]: [facility] Luis Hu [id number] Luis Hu 08/21/2024 1 MEDICARE B-[place]: [facility] [employer] Luis Hu [id number] Luis Hu
--- OUTSIDE RECORDS SUMMARY | 2024-08-23 08:03 | XMS_ITS | Continuity of Care Document ---
Author Organization [place] - [facility], Allergy Address [address] [address] Care Team Providers Care Casting And Locker Room Servicer Name Role Phone CASSANDRA BECK Primary Care Provider [phone] Assessment Encounter Date Assessment Date Assessment LastModified by Organization Details LastModified Time 08/21/2024 08/21/2024 Visit With: Ciara Guillory Use of Antihistamine s: No If yes: Vial Test Change in medications: No If yes ? ? ? Increase in asthma symptoms If yes, inhaler use: Reaction to last injections: No If yes: ? ? ? Allergy Symptoms: Other: ? ? ? Missed: Dose Aware of Vial Test Notes:? ? ? [email or web address] Not available 08/21/2024 13:11:05 Plan of Treatment Reminders Order Date Submit Date Provider Last Modified By Organization Details Last Modified Time Details Appointments [facility]- Allergy f-up 6mon 2024 01:00P [...] Address Organization Details Recorded Time Allergic rhinitis [id number] Active 2023 Allergic rhinitis: Due to other [...] ; Start Date : 3 Not Available [facility] 4 01:14:26 Chronic rhinitis 13254896 Active 2022 Chronic rhinitis; Note: Date Diagnosed : 06/09/2022 10:57 AM (J31.0) Not Available [facility] 4 03:02:25 Sensorine ural hearing loss of bilateral ears 118818130 Active 2022 Sensorine ural hearing loss, bilateral ; Note: Date Diagnosed : 09/16/2022 10:23 AM (H90.3) Not Available [facility] 4 03:02:25 Snoring 94568971 Active 2022 Snoring; Note: Date Diagnosed : 06/09/2022 10:57 AM (R06.83) Not Available [facility] 4 03:02:26 Bilateral tinnitus 45156364100 02 Active 2022 Tinnitus, bilateral ; Note: Date Diagnosed : 06/09/2022 10:57 AM (H93.13) Not Available [facility] 4 03:02:24 Perennial allergic rhinitis 261383673 Active 2023 CORTES WALSH RN [address] [place] [address], [facility] [place], [address] , [place] - [facility] 13:45:34 Problem Notes None recorded. Procedures Surgical History Date Name Laterality Status Provider Name and Address Organization Details Recorded Time 08/22/19 25 Allergy Immunotherapy Injections completed SWATI LARA [address],[place] [address], [place], [address], [place] [facility] 08/21/2024 13:10:58 08/08/19 25 Allergy Immunotherapy Injections completed SWATI LARA [address],[place] [address], [place], [address], [place] [facility] 08/07/2024 13:16:26 07/25/19 25 Allergy Immunotherapy Injections completed CORTES WALSH RN [address] [facility] [place] [address], [address], [place] [facility] 07/24/2024 14:03:12 07/18/19 25 Allergy Immunotherapy Injections completed CORTES WALSH RN 100 [facility] [place] [address] [place] [address], [address], [place] [facility] 07/17/2024 13:08:07 07/11/19 25 Allergy Immunotherapy Injections completed SWATI LARA [address],[place] [address] [place] [address], [address], [place] [facility] 07/10/2024 13:23:12 07/04/19 25 Allergy Immunotherapy Injections completed SWATI LARA [address] [facility] [address] [place] [address], [address], [place] [facility] 07/03/2024 13:12:29 06/27/19 25 Allergy Immunotherapy Injections completed SWATI LARA [address],[place] [address], [place], [address], [place] [facility] 06/26/2024 13:07:30 06/20/19 25 Allergy Immunotherapy Injections completed SWATI LARA [address] [address] [place] [address], [address], [place] [facility] 06/19/2024 13:47:43 06/13/19 25 Allergy Immunotherapy Injections completed CORTES WALSH RN [address], [place], [address], [place] [facility] 06/12/2024 14:46:09 06/05/19 25 Allergy Immunotherapy Injections completed SONJA OH, RMA [address], [place], [address], [place] [facility] 06/05/2024 14:29:22 05/29/19 25 Allergy Immunotherapy Injections completed SONJA OH, RMA [address], [place], [address], [place] [facility] 05/29/2024 13:53:39 05/22/19 25 Allergy Immunotherapy Injections completed CORTES WALSH RN [address], [place], [address], [place] [facility] 05/22/2024 13:38:06 05/15/19 25 Allergy Immunotherapy Injections completed CIARA GUILLORY Reji [address], [place], [address], [place] [facility] 05/15/2024 14:30:43 05/08/19 25 Allergy Immunotherapy Injections completed SONJA OH RMA [address], [place], [address], [place] [facility] 05/08/2024 13:52:53 05/01/19 25 Allergy Immunotherapy Injections completed CORTES WALSH RN [address], [place], [address], [place] [facility] 05/01/2024 13:58:22 04/26/19 25 Allergy Immunotherapy Injections completed CORTES WALSH RN [address], [place], [address], [place] [facility] 04/26/2024 14:09:06 04/17/19 25 Allergy Immunotherapy Injections completed SONJA OH RMA [address], [place], [address], [place] [facility] 04/17/2024 14:52:46 04/12/19 25 Allergy Immunotherapy Injections completed SONJA OH, RMA [address], [place], [address], [place] [facility] 04/12/2024 14:15:27 04/05/20 24 Allergy Immunotherapy Injections completed CORTES WALSH RN [address], [place], [address], [place] [facility] 04/05/2024 13:59:44 03/29/20 24 Allergy Immunotherapy Injections completed CIARA GUILLORY RMA [address], [place], [address], [place] [facility] 03/29/2024 12:16:50 03/20/20 24 Allergy Immunotherapy Injections completed SONJA OH, RMA [address], [place], [address], [place] [facility] 03/20/2024 13:34:37 03/13/20 24 Allergy Immunotherapy Injections completed SWATI LARA [address], [place], [address], [place] [facility] 03/13/2024 13:26:42 03/06/20 24 Allergy Immunotherapy Injections completed SONJA OH, RMA [address] [place] [address], [address], [place] [facility] 03/06/2024 13:00:43 02/28/20 24 Allergy Immunotherapy Injections completed CORTES WALSH RN [address] [facility] [address] [address], [place], [address], [place] [facility] 02/28/2024 13:24:24 02/22/20 24 Allergy Immunotherapy Injections completed VINNY LARAA [address],[place] [address], [place], [address], [place] [facility] 02/22/2024 13:21:07 02/14/20 24 Allergy Immunotherapy Injections completed CIARA GUILLORY RMA [address],[place] [address], [place], [address], [place] [facility] 02/14/2024 13:52:18 02/07/20 24 Allergy Immunotherapy Injections completed SONJA OH, RMA [address], [place], [address], [place] [facility] 02/07/2024 15:09:57 01/31/20 24 Allergy Immunotherapy Injections completed CORTES WALSH RN [address], [place], [address], [place] [facility] 01/31/2024 14:53:00 01/24/20 24 Allergy Immunotherapy Injections completed SWATI LARA [address], [place], [address], [place] [facility] 01/24/2024 13:50:01 01/17/20 24 Allergy Immunotherapy Injections completed CORTES WALSH RN [address] [facility] [address], [place], [address], [place] [facility] 01/17/2024 13:32:44 01/10/20 24 Allergy Immunotherapy Injections completed SONJA OH, RMA [address], [place], [address], [place] [facility] 01/10/2024 14:22:39 01/03/20 24 Allergy Immunotherapy Injections completed SWATI LARA [address],[place] [address], [place], [address], [place] [facility] 01/03/2024 13:05:53 12/27/19 24 Allergy Immunotherapy Injections completed SWATI LARA [address] [facility] [address], [place], [address], [place] [facility] 12/27/2023 13:24:25 12/20/19 24 Allergy Immunotherapy Injections completed CORTES WALSH RN [address] [facility] [address], [place], [address], [place] [facility] 12/20/2023 14:39:13 12/14/19 24 Allergy Immunotherapy Injections completed CORTES WALSH RN [address], [place], [address], [place] [facility] 12/14/2023 13:59:07 12/06/19 24 Allergy Immunotherapy Injections completed CIARA GUILLORY RMA [address], [place], [address], [place] [facility] 12/06/2023 13:42:56 11/29/19 24 Allergy Immunotherapy Injections completed CORTES WALSH RN [address] [facility] [address] [place] [address], [address], [place] [facility] 11/29/2023 16:38:38 11/22/19 24 Allergy Immunotherapy Injections completed SWATI LARA [address] [facility] [address], [place], [address], [place] [facility] 11/22/2023 13:41:22 11/15/19 24 Allergy Immunotherapy Injections completed SONJA OH, RMA [address],[place] [address], [place], [address], [place] [facility] 11/15/2023 13:10:48 11/08/19 24 Allergy Immunotherapy Injections completed SONJA OH RMA [address] [facility] [address] [place] [address], [address], [place] [facility] 11/08/2023 13:18:59 11/01/19 24 Allergy Immunotherapy Injections completed CORTES WALSH RN [address] [facility] [address] [place] [address], [address], [place] [facility] 11/01/2023 13:24:50 10/25/19 24 Allergy Immunotherapy Injections completed CORTES WALSH RN 100 [facility] [place] [address] [place] [address], [address], [place] [facility] 10/25/2023 13:51:27 10/18/19 24 Allergy Immunotherapy Injections completed CORTES WALSH RN [address] [facility] [address] [place] [address], [address], [place] [facility] 10/18/2023 16:21:59 10/11/19 24 Allergy Immunotherapy Injections completed CORTES WALSH RN 100 [facility] [place] [address] [place] [address], [address], [place] [facility] 10/11/2023 13:54:23 10/04/19 24 Allergy Immunotherapy Injections completed CIARA GUILLORY, A [address],[place] [address], [place], [address], [place] [facility] 10/04/2023 13:16:19 09/20/19 24 Allergy Immunotherapy Injections completed SONJA OH, RMA [address], [place], [address], [place] [facility] 09/20/2023 13:05:19 09/13/19 24 Allergy Immunotherapy Injections completed CIARA GUILLORY A [address] [facility] [address], [place], [address], [place] [facility] 09/13/2023 13:26:32 09/06/19 24 Allergy Immunotherapy Injections completed CIARA GUILLORY A [address] [facility] [address] [facility], [place], [address], [place] [facility] 09/06/2023 13:07:18 08/30/19 24 Allergy Immunotherapy Injections completed CIARA GUILLORY [facility] 100 [facility] [place] [address] [place] [address], [address], [place] [facility] 08/30/2023 13:10:22 08/23/19 24 Allergy Immunotherapy Injections completed CORTES WALSH RN 100 [facility] [place],[address], [address], [facility] - [facility] [...] sustained -release 06/09 completed Medicati on ID: [id number] B rand Name: bupropio n HCl Send Method: E-Prescr ibed Sub s Allowed: subs OK Medic ationGen ericName : bupropio n HCl Not Available Not Available Not Available clonidine HCl 0.1 mg tablet TAKE 1 TABLET BY MOUTH EVERY DAY NEEDED active Not Available Not Available No t Available prednison e 10 mg tablet 06/09 completed Medicati on ID: [id number] B rand Name: predniso ne Send Method: E-Prescr ibed Sub s Allowed: subs OK Medic ationGen ericName : predniso ne Not Available Not Available Not Available nicotine 14 mg/24 hr daily transderm al patch 06/09 completed Medicati on ID: [id number] B rand Name: nicotine Send Method: E-Prescr [...] mg tablet 06/09 completed Medicati on ID: [id number] B rand Name: lisinopr il Send Method: [...] suspensio n 06/09 completed Medicati on ID: [id number] B rand Name: Milk of Magnesia Send [...] mg capsule 06/09 completed Medicati on ID: [id number] B rand Name: prazosin Send Method: E-Prescr [...] layed release 06/09 completed Medicati on ID: [id number] B rand Name: pantopra zole Sen d [...] mg tablet 06/09 completed Medicati on ID: [id number] B rand Name: lisinopr il Send Method: E-Prescr ibed Sub s Allowed: subs OK Medic ationGen ericName : lisinopr il Not Available Not Available Not Available nicotine 21 mg/24 hr daily transderm al patch 06/09 completed Medicati on ID: [id number] B rand Name: nicotine Send Method: E-Prescr [...] unit) capsule 06/09 completed Medicati on ID: [id number] B rand Name: Vitamin D2 Send Method: [...] mg capsule 06/09 completed Medicati on ID: [id number] B rand Name: prazosin Send Method: E-Prescr ibed Sub s Allowed: subs OK Medic ationGen ericName : prazosin Not Available Not Available Not Available Vitamin B-12 1,000 mcg tablet 06/09 completed Medicati on ID: [id number] B rand Name: Vitamin B-12 Sen d [...] mg capsule 06/09 completed Medicati on ID: [id number] B rand Name: atomoxet ine Send Method: E-Prescr ibed Sub s Allowed: subs OK Medic ationGen ericName : atomoxet ine Not Available Not Available Not Available atomoxeti ne 60 mg capsule TAKE 1 CAPSULE BY MOUTH EVERY DAY IN THE MORNING active Not Available Not Available No t Available nicotine (polacril ex) 2 mg buccal lozenge 06/09 completed Medicati on ID: [id number] B rand Name: nicotine (polacri cuauhtemoc) Sen [...] aerosol inhaler 06/09 completed Medicati on ID: [id number] B rand Name: levalbut ale tartrate Send [...] mcg tablet 06/09 completed Medicati on ID: [id number] B rand Name: High Potency Multivit (w-iron) [...] SNOMED-CT Code Diagnosis ICD10 Code Diagnosis Note [id number] CORTES WALSH RN Allergy 100 [facility],[address] [facility] [place] [address] 07/24/2024 14:02:27 07/24/2024 14:04:11 Perennial allergic rhinitis [id number] J30.89 10401 CIARA GUILLORY [facility] Allergy [address] [place] [address], it 100 [facility] [place] [address] 08/07/2024 13:15:21 08/07/2024 13:16:48 Perennial allergic rhinitis [id number] J30.89 14162 SWATI LARA Allergy [address] [place] [address], [address] 100 [facility] [place] [address] 08/21/2024 13:10:09 08/21/2024 13:19:25 Perennial allergic rhinitis [id number] J30.89 Health Concerns Section Related Observation LastModified by Organization Detai ls LastModified Time None Recorded Concern Status LastModified by Organization Details LastModified Time None Recorded Payers Encounter Date Sequence Insurance Name Policy Number Policy Miller Covered Member ID Miller Member ID Guarantor Name 08/21/2024 2 [place] [facility] Luis Hu [id number] Luis Hu 08/21/2024 1 [place] B[place] [facility] Luis Hu [id number] Luis Hu
== END 2024-08-23 08:01 | disposition home or self-care (01) ==
LOC: HO.US 08:00
PROVIDERS: PCP Physician Assistant; Visit Provider Physician Assistant
DX: R74.8 Abnormal levels of other serum enzymes (principal)
CPT/HCPCS: 76705; 76981

== ENCOUNTER → 2024-08-23 08:00 | Outpatient (BNV) | payer MEDICARE, MEDICAID, SELFPAY | PROVIDERS: PCP Physician Assistant; Visit Provider Radiology Diagnostic Radiology | DX: R16.0 Hepatomegaly, not elsewhere classified (principal) | CPT/HCPCS: 76705; 76981 ==

== ENCOUNTER 2024-12-17 13:53 | Outpatient (REF) | payer MEDICARE, MEDICAID, SELFPAY ==
--- NOTE | 2024-12-17 14:52 | MHC.AU.HA3 ---
Hearing Instrument Follow-Up- Binaural Date of Visit: 12/17/24 Right Ear: Make, Model, Color, Serial Number: Oticon Real 2 miniRITE-R Lisseth Green SN [id number] Correctional Maintenance Technician Repair Warranty: 12/09/2025 Correctional Maintenance Technician Loss and Damage Warranty: 12/09/2025 [facility] Service Plan: 12/01/23 Battery Size: Rechargeable Facility Designer/Slim Tube: 2 85 [place]/Dome/CShell/SlimTip:Vented dome Type of Wax Guard: miniFit ProWax Dispensed By: [facility] Date of Fittin11/30/22 Left Ear: Make, Model, Color, Serial Number: Oticon Real 2 [employer] Lisseth Green SN [id number] Correctional Maintenance Technician Repair Warranty: 12/09/2025 Correctional Maintenance Technician Loss and Damage Warranty: 12/09/2025 [facility] Service Plan: 12/01/23 Battery Size: Rechargeable Facility Designer/Slim Tube: 2 85 [place]/Dome/CShell/SlimTip: Vented dome Type of Wax Guard: miniFit ProWax Dispensed By: [facility] Date of Fittin11/30/22 Follow-Up Summary: Seen for evaluation. Reports left aid hasn't been working for a couple months. Cleaned hearing aids (2), replaced wax guards (2), replaced domes (2) for [id number] units. Listening check positive right, left still not working. Replaced pilot control operator helper- left now making sound but very distorted, vacuumed out pilot control operator helper connection- no improvement. Sending left to trouble shooting mechanic. Recommendations: Recommendations: Patient will be contacted when materials have arrived.Recommendations (Other): Diagnosis Code(s): Primary Diagnosis: H90.3 Bilateral Sensorineural Hearing Loss Signature: Provider: Gilberto Fonseca, [facility]
== END 2024-12-17 13:54 | disposition home or self-care (01) ==
LOC: HO.SH 13:53
PROVIDERS: Visit Provider Physician Assistant
DX: Z01.118 Encounter for examination of ears and hearing with other abnormal findings (principal); H90.3 Sensorineural hearing loss, bilateral
CPT/HCPCS: 92557; 92593; 99499

== ENCOUNTER 2024-12-26 09:56 | Outpatient (REF) | payer MEDICARE, MEDICAID, SELFPAY | END 2024-12-26 09:57 | disposition home or self-care (01) | LOC: HO.HAP 09:56 | PROVIDERS: PCP Physician Assistant; Visit Provider Physician Assistant | DX: Z13.89 Encounter for screening for other disorder (principal) ==

== ENCOUNTER 2024-12-30 15:44 | Outpatient (AMB) | payer MEDICARE, MEDICAID, SELFPAY ==
--- NOTE | 2024-12-30 16:01 | MHC.PC.OV ---
Vital Signs 12/30/24 16:02 Height 6 ft 2 in Weight 329 lb 2 oz BMI 42.3 BP 150/70 H Blood Pressure Location Lt brachial Position Sitting Pulse 126 H Pulse Source Pulse Oximeter Temp 97.7 F Temp Source Temporal Artery Scan Pulse Oximetry (%) 94 Oxygen Delivery Method Room Air Intake Visit Reasons: f/u HLD Intake Note: Patient is here to follow up on HLD. Men'S Furnishings Salesperson Required: No Computer Forensics Investigator: Not Required per policy Accompanied by: Self / Same As Patient Allergies No Known Allergies Allergy (Verified 12/30/24 16:25) Medication List - Last Reconciled 12/30/24 by Erasmo Carson PA-C acetaminophen ER (Tylenol 8 Hour) 650 mg PO Q12H PRN Advair Diskus 100-50 mcg/dose (fluticasone propion-salmeterol) 1 inh inhalation BID NS atomoxetine mg PO QAM buspirone 10 mg PO TID buspirone mg PO cetirizine 10 mg PO DAILY PRN cholecalciferol (vitamin D3) 125 mcg PO DAILY clonidine HCl 0.1 mg PO .PRN fluoxetine mg PO DAILY fluoxetine mg PO DAILY fluticasone propion-salmeterol 500-50 mcg/dose (Advair Diskus) inhalation fluticasone propionate 50 mcg/actuation 1 spray intranasal DAILY 30 days folic acid 1 mg PO DAILY 90 days hydroxyzine HCl 100 mg (2 x 50 mg) PO ONCE PRN 30 days ibuprofen 400 mg PO Q8H lactulose 20 grams (30 mL) PO BID PRN 15 days levalbuterol HCl 0.63 mg (3 mL) inhalation TID PRN 30 days lorazepam mg PO BID melatonin 5 mg PO BEDTIME PRN montelukast (Singulair) 10 mg PO DAILY 90 days nicotine (polacrilex) 4 mg buccal Q2H PRN 30 days quetiapine 200 mg PO BID quetiapine 100 mg PO BEDTIME sennosides-docusate sodium 8.6-50 mg (Senna Plus) 2 tab-caps (2 x 8.6-50 mg) PO BEDTIME PRN 90 days simvastatin 10 mg PO DAILY Ventolin HFA 90 mcg/actuation (albuterol sulfate) 1 inh inhalation QID 30 days NS Tobacco use date assessed: 12/30/24 Dental Screening Dental Screen Date: 06/27/24 HPI f/u HLD HPI Details Patient is a 39-year-old male here today for a follow-up visit . Patient has a past medical history significant for ADHD, PTSD, schizoaffective disorder, anxiety, Obesity, former tobacco use disorder, hyperlipidemia. .. PTSD: Is seeing a psyciatrist whom managing his mental health medications. Has gained significant amount of weight since being on antipsychotic medication ?. He is interested in reducing some of his dose of his antipsychotics to help him lose weight. Of note does report signs and symptoms of hyperglycemia (polydipsia and polyuria) Will check fasting labs He feels he is fairly stable from a mental health point of view still a bit depressed at time. He is asking ENVIRONMENTAL STUDIES DEPARTMENT CHAIR services to help him with activities of daily living. . . Class 3 Obesity: Unfortunately gained significant amount of weight since last office visit Patient does understand his BMI is 30 and will work on being more physically active and adapting to better eating habits to reduce his weight. .. Hyperlipidemia: Continues on low-dose statin therapy without any side effect. Will recheck his fasting lipid panel to assure appropriate total cholesterol and LDL .. Asthma: He feels his asthma is fairly well controlled though still has shortness of breath and cough worse during changes of seasons. He is now seeing ENT specialist in is doing allergy injections. Of note he has been found to have sensorineural hearing loss and now has bilateral hearing aids .. former Tobacco dependency: He reports he quit smoking last year. . He he has access to nicotine patches and gum at his respite care and is considering starting. [facility] Medical History (Updated 12/30/24 @ 16:33 by Erasmo Carson PA-C) Class 2 severe obesity with body mass index (BMI) of 35 to 39.9 with serious comorbidity Essential hypertension Major depression Skin lesion of neck Allergies ADHD Surgical History No pertinent past surgical history Family History Father Heart disease Mother HTN (hypertension) DMII (diabetes mellitus, type 2) Social History Housing: Other (Program home) Alcohol intake: current Alcohol intake frequency: a few times a month Alcohol type: beer Patient Tobacco Use Status: Former Tobacco user Tobacco use type: Cigarette e-Cigarette/Vaping Use: Never Used Second Hand Smoke Exposure: Yes service: No Current occupational status: unemployed Current occupation: unemployed Cognitive needs: No Hearing needs: Yes (Hearing aide ) Vision needs: Yes (Glasses) Questionnaire Thrive Questionnaire Date Thrive assessed: 06/20/24 I am a: Patient What is your living situation today?: I have a steady place to live Within the past 12 months, did the food you bought not last and you didn't have the money to get more?: Often true Within the past 12 months, did you worry whether your food would run out before you got money to buy more?: Often true Do you have trouble paying for medicines?: No Do you have trouble getting transportation to medical appointments?: No Do you have trouble paying your heating and electricity bill?: Yes Do you have trouble taking care of your child, family member or friend?: No Do you have trouble with day-to-day activities such as bathing, preparing meals, shopping, managing finances, etc.?: Yes Are you currently unemployed and looking for a job?: No Are you interested in more education?: No THRIVE Score: 3 COLIN-7 AMB Questionnaire COLIN-7 Date COLIN - 7 assessed: 06/27/24 Source: Developed by Drs. Joon Castillo, Clau Mccullough, Ruben Barfield and colleagues, with an educational dwayne from [employer]. Review of Systems Const Denies headache(s) Eyes Denies loss of vision ENT Denies vertigo, Denies dizziness, Denies headache(s) and Denies sore throat Card Denies chest pain, Denies leg edema and Denies lightheadedness Resp Denies cough, Denies hemoptysis and Denies wheezing GI Denies abdominal pain, Denies melena, Denies constipation, Denies diarrhea and Denies vomiting Denies dysuria, Denies urinary frequency and Denies urinary urgency Musc Denies arthralgias, Denies joint swelling, Denies numbness and Denies tingling Neuro Denies Abnormal speech present, Denies behavioral changes, Denies vertigo, Denies dizziness, Denies headache(s), Denies loss of vision, Denies memory loss, Denies numbness and Denies tingling Psych Denies anxiety, Denies behavioral changes, Denies depression, Denies memory loss and Denies panic attacks Jacob/Lymph Denies easy bleeding and Denies easy bruising Aller/Immun Denies wheezing Physical exam (Primary Care) Vital Signs: Last Vital Signs Temp 97.7 F 12/30/24 16:02 Pulse 126 H 12/30/24 16:02 BP 150/70 H 12/30/24 16:02 Pulse Ox 94 12/30/24 16:02 Oxygen Delivery Method Room Air 12/30/24 16:02 BMI result Body Mass Index 42.3 BMI Assessment/Plan discussion: High BMI High, discussed plan: lifestyle, weight reduction, dietary and physical activity Tobacco/Smoking Status: Tobacco use Status Tobacco use date assessed 12/30/24 12/30/24 16:05 Patient Tobacco Use Status Former Tobacco user 12/30/24 16:05 Tobacco use type Cigarette 12/30/24 16:05 e-Cigarette/Vaping Use Never Used 12/30/24 16:05 Thrive Assessment: Date of Thrive Assessment Date Thrive assessed 06/20/24 12/30/24 16:05 Const General: healthy appearing, no acute distress, alert and awake Nutritional Appearance: well nourished Orientation/consciousness: oriented to person, oriented to place and oriented to time HENMT Ears: TM's normal bilaterally General nose exam: Normal nasal mucous membranes and turbinates present Eyes Conjunctivae: conjunctivae normal Sclerae: sclerae normal Pupils: Equal, round and reactive pupils present Neck Neck: Yes no lymphadenopathy and Yes no JVD Thyroid: Thyroid normal Carotids: no bruits Resp Effort & Inspection: normal respiratory effort and not tachypneic Auscultation: no crackles, no rales, no rhonchi and no wheezes Cardio Rate: regular rate Rhythm: regular rhythm Heart sounds: no murmurs and normal S1 and S2 GI Palpation (GI): Soft to palpation, nontender, no hepatomegaly and no splenomegaly Auscultation: normal bowel sounds Skin General skin exam: no rashes or lesions noted and dry skin Neuro General: oriented to person, oriented to place and oriented to time Cranial nerves: Yes Equal, round and reactive pupils present Speech: No Abnormal speech present Gait exam (Neuro): Normal gait present Motor exam (neuro): no tremor noted Extrem Right upper extremity: full ROM Left upper extremity: full ROM Right lower extremity: full ROM; no edema Left lower extremity: full ROM; no edema Psych Mental Status: mental status grossly normal Speech and movement: Normal speech and movement present Affect: normal affect Attitude: cooperative Thought process: Normal thought process present Coding Level of Care Code Est Pt Level 4 (76077) Diagnoses Mixed hyperlipidemia E78.2 Hyperlipidemia type: mixed hyperlipidemia Moderate episode of recurrent major depressive disorder F33.1 Active/Remission status: currently active Major depression episode severity: moderate Major depression recurrence: recurrent Moderate persistent asthma without complication J45.40 Asthma complication type: uncomplicated Asthma persistence: persistent Asthma severity: moderate Schizo-affective schizophrenia F25.9 Bipolar disease, chronic F31.9 Impaired glucose metabolism R73.09 Class 3 obesity E66.813 Assessment & Plan Assessment & Plan (1) HLD (hyperlipidemia): Code(s): E78.5 - Hyperlipidemia, unspecified Category: Medical Qualifiers: Hyperlipidemia type: mixed hyperlipidemia Qualified Code(s): E78.2 - Mixed hyperlipidemia Plan: Patient's most recent lipid panel showing improved total cholesterol LDL and triglycerides. Managed with simvastatin, with recommendations for fasting lab follow-ups. (2) Major depression: Code(s): F32.9 - Major depressive disorder, single episode, unspecified Category: Medical Qualifiers: Active/Remission status: currently active Major depression episode severity: moderate Major depression recurrence: recurrent Qualified Code(s): F33.1 - Major depressive disorder, recurrent, moderate Plan: He is speaking with a mental health therapist and a psychiatrist who manages his mental health medications. He does have a home nurse who comes to his apartment to help him administer medication. (3) Asthma: Code(s): J45.909 - Unspecified asthma, uncomplicated Category: Medical Qualifiers: Asthma complication type: uncomplicated Asthma persistence: persistent Asthma severity: moderate Qualified Code(s): J45.40 - Moderate persistent asthma, uncomplicated Plan: Patient reports his asthma is fairly well controlled with only p.r.n. use of an albuterol inhaler (4) Schizo-affective schizophrenia: Code(s): F25.9 - Schizoaffective disorder, unspecified Category: Medical Plan: Again followed by Psychiatry who manage his mental health medications. As per HPI he would like to reduce some of his doses of his antipsychotics to help him lose weight. He is on a fairly high dose of Seroquel at 500 mg daily. (5) Bipolar disease, chronic: Code(s): F31.9 - Bipolar disorder, unspecified Category: Medical Plan: As above (6) Impaired glucose metabolism: Code(s): R73.09 - Other abnormal glucose Category: Medical Plan: He does report signs and symptoms of hyperglycemia setting of weight gain and obesity- > polydipsia and polyuria. Will check his fasting blood sugar and A1c to evaluate for diabetes Patient does have a history of impaired glucose metabolism likely secondary to his obesity. He will work on low carbohydrate diet and try to be more physically active. (7) Class 3 obesity: Code(s): E66.813 - Obesity, class 3 Category: Medical Plan: Patient does understand his BMI is over 40 and will try to work on better eating habits and being more physically active to reduce his weight. He does understand it isn't likely his psychiatric medication that could be playing a role in his weight gain. Orders: Orders Lipid Panel 12/30/24 E78.2 - Mixed hyperlipidemia Complete Blood Count no Diff 12/30/24 E78.2 - Mixed hyperlipidemia Hemoglobin A1c 12/30/24 R73.09 - Other abnormal glucose Microalbumin, Random (w Creat) 12/30/24 R80.9 - Proteinuria, unspecified Vitamin D 25-OH Total 12/30/24 E55.9 - Vitamin D deficiency, unspecified Comprehensive [place]. Panel Fast 12/30/24 E78.2 - Mixed hyperlipidemia Testosterone, Free/Total 12/30/24 E66.813 - Obesity, class 3
[2024-12-30 16:02] VITALS: BP 150/70; PULSE 126; TEMP 36.5; O2SAT 94; BMI 42.3
== END 2024-12-30 16:55 | disposition home or self-care (01) ==
LOC: HO.HMCH 15:45
PROVIDERS: PCP Physician Assistant; Visit Provider Physician Assistant
DX: E78.2 Mixed hyperlipidemia (principal); F33.1 Major depressive disorder, recurrent, moderate; J45.40 Moderate persistent asthma, uncomplicated; F25.9 Schizoaffective disorder, unspecified; F31.9 Bipolar disorder, unspecified; R73.09 Other abnormal glucose; E66.813 Obesity, class 3

== ENCOUNTER → 2024-12-30 15:44 | Outpatient (BNVA) | payer MEDICARE, MEDICAID, SELFPAY | PROVIDERS: PCP Physician Assistant; Visit Provider Physician Assistant | DX: E78.2 Mixed hyperlipidemia (principal); F33.1 Major depressive disorder, recurrent, moderate; J45.40 Moderate persistent asthma, uncomplicated; F25.9 Schizoaffective disorder, unspecified; R73.09 Other abnormal glucose; E66.813 Obesity, class 3; Z68.41 Body mass index [BMI] 40.0-44.9, adult; Z71.3 Dietary counseling and surveillance; Z87.891 Personal history of nicotine dependence | CPT/HCPCS: 99212 ==

== ENCOUNTER 2025-02-11 13:58 | Outpatient (REF) | payer MEDICARE, MEDICAID, SELFPAY ==
--- OUTSIDE RECORDS SUMMARY | 2025-02-11 17:03 | XMS_ITS | Data Portability ---
Author Organization [place] [facility] Former[facility], Allergy Address [address] [address] Care Team Providers Care Composing Machine Operator Name Role Phone CASSANDRA BECK Primary Care Provider Assessment Encounter Date Assessment Date Assessment LastModified by Organization Details LastModified Time 11/13/2024 11/13/2024 Visit With: Emeli Khanna Use of Antihistamines: No If yes: Vial Test Change in medications: No If yes Increase in asthma symptoms If yes, inhaler use: Reaction to last injections: No If yes: Allergy Symptoms: Other: Missed: Dose Aware of Vial Test Yes Aware: Notes: [email or web address] Not available 11/13/2024 13:14:00 11/27/2024 11/27/2024 Visit With: Emeli Khanna Use of Antihistamines: No If yes: Vial Test Yes Change in medications: No If yes Increase in asthma symptoms If yes, inhaler use: Reaction to last injections: No If yes: Allergy Symptoms: Other: Missed: Dose Aware of Vial Test Aware: Notes: [email or web address] Not available 11/27/2024 13:28:41 12/11/2024 12/11/2024 Visit With: Maddie Walsh RN Use of Antihistamines: No If yes: Vial Test Change in medications: No If yes Increase in asthma symptoms No Asthma Hx If yes, inhaler use: Reaction to last injections: No If yes: Allergy Symptoms: Other: Missed: Dose Aware of Vial Test Aware: Notes: [email or web address] Not available 12/11/2024 13:41:17 12/25/2024 12/25/2024 Visit With: SWATI Blanton Use of Antihistamines: No If yes: Vial Test Change in medications: No If yes Increase in asthma symptoms No If yes, inhaler use: Reaction to last injections: No If yes: Allergy Symptoms: Other: Missed: Dose Aware of Vial Test Aware: Notes: [email or web address] Not available 12/25/2024 13:39:50 12/30/2024 12/30/2024 Patient is benefiting from immunotherapy and should continue. He has been undergoing subcutaneous immunotherapy since 01/2023. He is currently doing biweekly injections. No local or systemic reactions. Continue antihistamines and fluticasone as needed. EpiPen is up to date. We will reassess in 6 months. [email or web address] Not available 12/30/2024 11:48:58 Plan of Treatment Reminders Order Date Submit Date Provider Last Modified By Organization Details Last Modified Time Details Appointments [facility] hed- Allergy f-up 6mon 2025 10:30A M BEN QUIGLEY PA-C Not available Not [...] Name and Address Organization Details Recorded Time Chronic rhinitis 15905215 Active 2022 Chronic rhinitis; Note: Date Diagnosed : 06/09/2022 10:57 AM (J31.0) Not Available [facility] 4 03:02:25 Snoring 88433086 Active 2022 Snoring; Note: Date Diagnosed : 06/09/2022 10:57 AM (R06.83) Not Available [facility] 4 03:02:26 Bilateral tinnitus [id number] 02 Active 2022 Tinnitus, bilateral ; Note: Date Diagnosed : 06/09/2022 10:57 AM (H93.13) Not Available [facility] 4 03:02:24 Sensorine ural hearing loss of bilateral ears [id number] Active 2022 Sensorine ural hearing loss, bilateral ; Note: Date Diagnosed : 09/16/2022 10:23 AM (H90.3) Not Available [facility] 4 03:02:25 Allergic rhinitis 48250783 Active 2023 Allergic rhinitis: Due to other [...] 1:33 PM (477.8) ; Start Date : Allergi c rhinitis: Due to other allergen; Note: Date Diagnosed : 1:12 PM (477.8) Note: Date Diagnosed : 3 1:12 PM (477.8) ; Start Date : Allergi c rhinitis: Due to other allergen; Note: Date Diagnosed : 1:16 PM (477.8) Note: Date Diagnosed : 1:16 PM (477.8) ; Start Date : Allergi [...] 10:26 AM (477.8) Note: Date Diagnosed : 11/29/202 3 10:26 AM (477.8) ; Start Date [...] AM (J30.89) ; Start Date : 3 BEN QUIGLEY PA-C [address] [address], [place], [address] , [facility] 5 11:49:02 Perennial allergic rhinitis 401772502 Active 2023 CORTES WALSH RN [address] [place] [address], [place], [address] , [facility] 4 13:45:34 Problem Notes None recorded. Procedures Surgical History Date Name Laterality Status Provider Name and Address Organization Details Recorded Time 12/26/19 25 Allergy Immunotherapy Injections completed Ernesto Hoyt [address] [facility],[address] [address], [place], [address], [facility] 12/25/2024 13:39:39 12/12/19 25 Allergy Immunotherapy Injections completed Ernesto Hoyt [address], [place], [address], [place] [facility] 12/11/2024 13:41:06 11/28/19 25 Allergy Immunotherapy Injections completed SUSANA KHANNA RMA [address], [place], [address], [place] [facility] 11/27/2024 13:28:34 11/14/19 25 Allergy Immunotherapy Injections completed SUSANA KHANNA RMA [address], [place], [address], [place] [facility] 11/13/2024 13:13:54 10/31/19 25 Allergy Immunotherapy Injections completed CORTES WALSH RN [address] [place] [address], [address], [place] [facility] 10/30/2024 13:22:32 10/17/19 25 Allergy Immunotherapy Injections completed SONJA OH RMA [address], [place], [address], [place] [facility] 10/16/2024 13:14:47 10/03/19 25 Allergy Immunotherapy Injections completed VINNY LARAA [address], [place], [address], [place] [facility] 10/02/2024 13:59:09 09/19/19 25 Allergy Immunotherapy Injections completed CORTES WALSH RN [address], [place], [address], [place] [facility] 09/18/2024 14:00:24 09/05/19 25 Allergy Immunotherapy Injections completed SUSANA KHANNA RMA [address], [place], [address], [place] [facility] 09/04/2024 13:17:42 08/22/19 25 Allergy Immunotherapy Injections completed SUSANA KHANNA RMA [address], [place], [address], [place] [facility] 08/21/2024 13:10:58 08/08/19 25 Allergy Immunotherapy Injections completed SWATI LARA [address], [place], [address], [place] [facility] 08/07/2024 13:16:26 07/25/19 25 Allergy Immunotherapy Injections completed CORTES WALSH RN [address], [place], [address], [place] [facility] 07/24/2024 14:03:12 07/18/19 25 Allergy Immunotherapy Injections completed CORTES WALSH RN [address], [place], [address], [place] [facility] 07/17/2024 13:08:07 07/11/19 25 Allergy Immunotherapy Injections completed SWATI LARA [address], [place], [address], [place] [facility] 07/10/2024 13:23:12 07/04/19 25 Allergy Immunotherapy Injections completed SWATI LARA [address] [facility] [place], [address], [place] [facility] 07/03/2024 13:12:29 06/27/19 25 Allergy Immunotherapy Injections completed SWATI LARA [address], [place], [address], [place] [facility] 06/26/2024 13:07:30 06/20/19 25 Allergy Immunotherapy Injections completed SWATI LARA [address], [place], [address], [place] [facility] 06/19/2024 13:47:43 06/13/19 25 Allergy Immunotherapy Injections completed CORTES WALSH RN [address], [place], [address], [place] [facility] 06/12/2024 14:46:09 06/05/19 25 Allergy Immunotherapy Injections completed SWAIT BLANTON [address], [place], [address], [place] [facility] 06/05/2024 14:29:22 05/29/19 25 Allergy Immunotherapy Injections completed SONJA OH, RMA [address], [place], [address], [place] [facility] 05/29/2024 13:53:39 05/22/19 25 Allergy Immunotherapy Injections completed CORTES WALSH RN [address], [place], [address], [place] [facility] 05/22/2024 13:38:06 05/15/19 25 Allergy Immunotherapy Injections completed SUSANA KHANNA RMA [address], [place], [address], [place] [facility] 05/15/2024 14:30:43 05/08/19 25 Allergy Immunotherapy Injections completed SONJA OH, RMA [address], [place], [address], [place] [facility] 05/08/2024 13:52:53 05/01/19 25 Allergy Immunotherapy Injections completed CORTES WALSH RN [address] [place] [address], [address], [place] [facility] 05/01/2024 13:58:22 04/26/19 25 Allergy Immunotherapy Injections completed CORTES WALSH RN [address] [place] [address], [address], [place] [facility] 04/26/2024 14:09:06 04/17/19 25 Allergy Immunotherapy Injections completed SONJA OH, RMA [address], [place], [address], [place] [facility] 04/17/2024 14:52:46 04/12/19 25 Allergy Immunotherapy Injections completed SONJA OH, RMA [address], [place], [address], [place] [facility] 04/12/2024 14:15:27 04/05/20 24 Allergy Immunotherapy Injections completed CORTES WALSH RN [address], [place], [address], [place] [facility] 04/05/2024 13:59:44 03/29/20 24 Allergy Immunotherapy Injections completed SWATI LARA [address], [place], [address], [place] [facility] 03/29/2024 12:16:50 03/20/20 24 Allergy Immunotherapy Injections completed SONJA OH RMA [address], [place], [address], [place] [facility] 03/20/2024 13:34:37 03/13/20 24 Allergy Immunotherapy Injections completed SUSANA KHANNA RMA [address], [place], [address], [place] [facility] 03/13/2024 13:26:42 03/06/20 24 Allergy Immunotherapy Injections completed SONJA OH RMA [address] [place] [address], [address], [place] [facility] 03/06/2024 13:00:43 02/28/20 24 Allergy Immunotherapy Injections completed CORTES WALSH RN [address] [place] [address], [address], [place] [facility] 02/28/2024 13:24:24 02/22/20 24 Allergy Immunotherapy Injections completed SWATI LARA [address] [place] [address], [address], [place] [facility] 02/22/2024 13:21:07 02/14/20 24 Allergy Immunotherapy Injections completed SWATI LARA [address], [place], [address], [place] [facility] 02/14/2024 13:52:18 02/07/20 24 Allergy Immunotherapy Injections completed SONJA OH RMA [address], [place], [address], [place] [facility] 02/07/2024 15:09:57 01/31/20 24 Allergy Immunotherapy Injections completed CORTES WALSH RN [address], [place], [address], [place] [facility] 01/31/2024 14:53:00 01/24/20 24 Allergy Immunotherapy Injections completed SWATI LARA [address], [place], [address], [place] [facility] 01/24/2024 13:50:01 01/17/20 24 Allergy Immunotherapy Injections completed CORTES WALSH RN [address], [place], [address], [place] [facility] 01/17/2024 13:32:44 01/10/20 24 Allergy Immunotherapy Injections completed SONJA OH RMReji [address] [place] [address], [address], [place] [facility] 01/10/2024 14:22:39 01/03/20 24 Allergy Immunotherapy Injections completed SWATI LARA [address] [place] [address], [address], [place] [facility] 01/03/2024 13:05:53 12/27/19 24 Allergy Immunotherapy Injections completed SWATI LARA [address] [place] [address], [address], [place] [facility] 12/27/2023 13:24:25 12/20/19 24 Allergy Immunotherapy Injections completed CORTES WALSH RN [address] [place] [address], [address], [place] [facility] 12/20/2023 14:39:13 12/14/19 24 Allergy Immunotherapy Injections completed CORTES WALSH RN [address] [place] [address], [address], [place] [facility] 12/14/2023 13:59:07 12/06/19 24 Allergy Immunotherapy Injections completed SWATI LARA [address] [place] [address], [address], [place] [facility] 12/06/2023 13:42:56 11/29/19 24 Allergy Immunotherapy Injections completed CORTES WALSH RN [address] [facility],[address], [place], [address], [place] [facility] 11/29/2023 16:38:38 11/22/19 24 Allergy Immunotherapy Injections completed SWATI LARA [address], [place], [address], [place] [facility] 11/22/2023 13:41:22 11/15/19 24 Allergy Immunotherapy Injections completed SWATI BLANTON [address], [place], [address], [place] [facility] 11/15/2023 13:10:48 11/08/19 24 Allergy Immunotherapy Injections completed SWATI BLANTON [address], [place], [address], [place] [facility] 11/08/2023 13:18:59 11/01/19 24 Allergy Immunotherapy Injections completed CORTES WALSH RN [address] [place] [address], [address], [place] [facility] 11/01/2023 13:24:50 10/25/19 24 Allergy Immunotherapy Injections completed CORTES WALSH RN [address] [place] [address], [address], [place] [facility] 10/25/2023 13:51:27 10/18/19 24 Allergy Immunotherapy Injections completed CORTES WALSH RN [address] [place] [address], [address], [place] [facility] 10/18/2023 16:21:59 10/11/19 24 Allergy Immunotherapy Injections completed CORTES WALSH RN [address] [place] [address], [address], [place] [facility] 10/11/2023 13:54:23 10/04/19 24 Allergy Immunotherapy Injections completed SWATI LARA [address], [place], [address], [place] [facility] 10/04/2023 13:16:19 09/20/19 24 Allergy Immunotherapy Injections completed SWATI BLANTON [address], [address], [facility] - [facility] 09/20/2023 13:05:19 09/13/19 24 Allergy Immunotherapy Injections completed SWATI LARA [address] [facility],[address], [address], [facility] - [facility] 09/13/2023 13:26:32 09/06/19 24 Allergy Immunotherapy Injections completed SWATI LARA [address] [facility],[address], [address], [facility] - [facility] 09/06/2023 13:07:18 08/30/19 24 Allergy Immunotherapy Injections completed SWATI LARA [address] [facility],[address], [address], [facility] - [facility] 08/30/2023 13:10:22 08/23/19 24 Allergy Immunotherapy Injections completed CORTES WALSH RN [address] [facility],[address], [address], [facility] - [facility] 08/23/2023 13:46:59 Imaging Results None recorded. [...] sustained -release 06/09 completed Medicati on ID: [id number] rand Name: bupropio n HCl Send Method: E-Prescr ibed Sub s Allowed: subs OK Medic ationGen ericName : bupropio n HCl Not Available Not Available Not Available clonidine HCl 0.1 mg tablet TAKE 1 TABLET BY MOUTH EVERY DAY NEEDED active Not Available Not Available No t Available prednison e 10 mg tablet 06/09 completed Medicati on ID: [id number] B rand Name: predniso ne Send Method: E-Prescr ibed Sub s Allowed: subs OK Medic ationGen ericName : predniso ne Not Available Not Available Not Available nicotine 14 mg/24 hr daily transderm al patch 06/09 completed Medicati on ID: [id number] B rand Name: nicotine Send Method: E-Prescr ibed Sub s Allowed: subs OK Medic ationGen ericName : nicotine Not Available Not Available Not Available haloperid ol 5 mg tablet active Not Available Not Available Not Available cetirizin e 10 mg tablet TAKE 1 TABLET BY MOUTH EVERY DAY NEEDED FOR ALLERGY active Not Available Not Available No t Available levalbute rol 0.63 mg/3 mL solution for nebulizat ion INHALE 3ML VIA NEBULIZE R 3 TIMES A DAY NEEDED FOR SHORTNES S OF BREATH OR WHEEZING active Not Available Not Available No t Available nicotine (polacril ex) 2 mg gum TAKE 2 MG BUCCALLY EVERY 2 HOURS NEEDED FOR NICOTINE CRAVINGS FOR 15 DAYS active Not Available Not Available No t Available lisinopri l 20 mg tablet 06/09 completed Medicati on ID: [id number] B rand Name: lisinopr il Send Method: [...] suspensio n 06/09 completed Medicati on ID: [id number] B rand Name: Milk of Magnesia Send [...] No t Available prazosin 5 mg capsule 03/02 /2023 completed Medicati on ID: [id number] B rand Name: prazosin Send Method: E-Prescr [...] layed release 06/09 completed Medicati on ID: [id number] B rand Name: pantopra zole Sen d [...] mg tablet 06/09 completed Medicati on ID: [id number] B rand Name: lisinopr il Send Method: E-Prescr ibed Sub s Allowed: subs OK Medic ationGen ericName : lisinopr il Not Available Not Available Not Available nicotine 21 mg/24 hr daily transderm al patch 06/09 completed Medicati on ID: [id number] B rand Name: nicotine Send Method: E-Prescr ibed Sub s Allowed: subs OK Speci al Instruct ion: APPLY 1 PATCH EVERY DAY DIRECTED Medicat ionGener icName: nicotine Not Available Not Available Not Available fluoxetin e 10 mg capsule TAKE 1 CAPSULE BY MOUTH EVERY DAY active Not Available Not Available No t Available folic acid 1 mg tablet TAKE 1 TABLET (1 MG) BY MOUTH EVERY DAY active Not Available Not Available No t Available monteluka st 10 mg tablet TAKE 1 TABLET (10 MG) BY MOUTH EVERY DAY active Not Available Not Available No t Available epinephri ne 0.3 mg/0.3 mL injection , auto-inje ctor ADMINIST ER 1 PEN INJECTOR SUBCUTAN EOUSLY SINGLE DOSE NEEDED active Not Available Not Available No t Available Vitamin D2 1,250 mcg (50,000 unit) capsule 06/09 completed Medicati on ID: [id number] B rand Name: Vitamin D2 Send Method: E-Prescr ibed Sub s Allowed: subs OK Medic ationGen ericName : Vitamin D2 Not Available Not Available Not Available fluoxetin e 20 mg capsule TAKE 1 CAPSULE BY MOUTH EVERY DAY active Not Available Not Available No t Available fluticaso ne propionat e 50 mcg/actua tion nasal spray,chip pension 1 SPRAY INTRANAS ALLY DAILY FOR 30 DAYS ADMINIST ER INTO EACH NOSTRIL active Not Available Not Available No t Available cholecalc iferol (vitamin D3) 125 mcg (5,000 unit) capsule TAKE 1 CAPSULE BY MOUTH EVERY DAY active Not Available Not Available No t Available prazosin 2 mg capsule 06/09 completed Medicati on ID: [id number] B rand Name: prazosin Send Method: E-Prescr ibed Sub s Allowed: subs OK Medic ationGen ericName : prazosin Not Available Not Available Not Available Vitamin B-12 1,000 mcg tablet 06/09 completed Medicati on ID: [id number] B rand Name: Vitamin B-12 Sen d [...] mg capsule 06/09 completed Medicati on ID: [id number] B rand Name: atomoxet ine Send Method: E-Prescr ibed Sub s Allowed: subs OK Medic ationGen ericName : atomoxet ine Not Available Not Available Not Available atomoxeti ne 60 mg capsule TAKE 1 CAPSULE BY MOUTH EVERY DAY IN THE MORNING active Not Available Not Available No t Available nicotine (polacril ex) 2 mg buccal lozenge 06/09 completed Medicati on ID: [id number] B rand Name: nicotine (polacri cuauhtemoc) Sen [...] aerosol inhaler 06/09 completed Medicati on ID: [id number] B rand Name: levalbut ale tartrate Send [...] Not Available Not Available No t Available Wixela Inhub 500 mcg-50 mcg/dose powder for inhalatio n INHALE 1 PUFF BY MOUTH TWICE A DAY (RINSE MOUTH AND THROAT AFTER USE) active Not Available Not Available No t Available High Potency Multivita min (w-iron) 9 mg iron-400 mcg tablet 06/09 completed Medicati on ID: [id number] B rand Name: High Potency Multivit (w-iron) Send Method: E-Prescr ibed Sub s Allowed: subs OK Speci al Instruct ion: TAKE 1 TABLET BY MOUTH EVERY DAY Medi cationGe nericNam e: High Potency Multivit (w-iron) Not Available Not Available Not Available Vitals Date Recorded Body height Body mass index (BMI) Body weight Provider Name and Address Organization Details Last Updated DateTime 12/30/2024 187.96 cm 38.5 kg/m2 522964.71 g Rosalee Ying [place] - [facility] 12/30/2024 11:19:30 Social History None recorded. Functional Status None recorded. Mental Status None recorded. Family History Nothing Reported. Medical History No medical history recorded. Past Encounters Encounter ID Performer Location Encounter Start Date Encounter Closed Date Diagnosis/Indication Diagnosis SNOMED-CT Code Diagnosis ICD10 Code Diagnosis IMO Codes Diagnosis Note [id number] CORTES WALSH RN Allergy [address] [facility],[address] [place] [address] 08/23/2023 12:59:00 08/28/2023 15:54:15 Perennial allergic rhinitis 992990481 J30.89 [id number] SUSANA KHANNA, A Allergy [address] [place] [address],[address] [place] [address] 08/30/2023 13:09:20 08/30/2023 15:51:52 Perennial allergic rhinitis [id number] J30.89 [id number] SUSANA KHANNA A Allergy [address] [place] [address],[address] [place] [address] 09/06/2023 13:06:32 09/06/2023 15:09:49 Perennial allergic rhinitis [id number] J30.89 [id number] SUSANA KHANNA [facility] Allergy [address] [place] [address],[address] [place] [address] 09/13/2023 12:59:35 09/13/2023 15:03:23 Perennial allergic rhinitis [id number] J30.[id number] [facility], A Allergy [address] [facility],[address] [place] [address] 09/20/2023 12:56:21 09/20/2023 15:27:20 Perennial allergic rhinitis [id number] J30.89 [id number] CORTES WALSH RN Allergy [address] [place] [address],[address] [place] [address] 10/04/2023 13:15:10 10/04/2023 15:25:02 Perennial allergic rhinitis [id number] J30.89 [id number] CORTES WALSH RN Allergy [address] [facility],[address] [place] [address] 10/11/2023 12:57:15 10/11/2023 14:43:51 Perennial allergic rhinitis [id number] J30.89 [id number] CORTES WALSH RN Allergy [address] [facility],[address] [place] [address] 10/18/2023 16:20:26 10/18/2023 16:42:25 Perennial allergic rhinitis [id number] J30.89 [id number] CORTES WALSH lumber sticker [address] [place] [address],[address] [place] [address] 10/25/2023 13:50:03 10/25/2023 14:06:38 Perennial allergic rhinitis [id number] J30.89 [id number] CORTES WALSH RN Allergy [address] [place] [address],[address] [place] [address] 11/01/2023 13:24:06 11/01/2023 13:25:32 Perennial allergic rhinitis [id number] J30.[id number] [facility], [facility] Allergy [address] [place] [address],[address] [place] [address] 11/08/2023 13:17:59 11/08/2023 15:02:25 Perennial allergic rhinitis [id number] J30.[id number] [facility], A Allergy [address] [place] [address],[address] [place] [address] 11/15/2023 13:09:53 11/15/2023 13:32:39 Perennial allergic rhinitis [id number] J30.89 [id number] CORTES WALSH RN Allergy [address] [place] [address],[address] [place] [address] 11/22/2023 13:40:13 11/22/2023 13:45:52 Perennial allergic rhinitis [id number] J30.89 [id number] CORTES WALSH RN Allergy [address] [place] [address],[address] [place] [address] 11/29/2023 16:37:52 11/29/2023 16:39:18 Perennial allergic rhinitis [id number] J30.89 [id number] SUSANA KHANNA, [facility] Allergy [address] [place] [address],[address] [place] [address] 12/06/2023 13:41:23 12/06/2023 14:12:43 Perennial allergic rhinitis [id number] J30.89 [id number] CORTES WALSH RN Allergy 100 [facility],[address] [place] [address] 12/14/2023 13:57:57 12/14/2023 14:00:02 Perennial allergic rhinitis [id number] J30.89 [id number] CORTES WALSH RN Allergy 100 [facility],[address] [place] [address] 12/20/2023 14:38:15 12/20/2023 14:39:43 Perennial allergic rhinitis [id number] J30.89 [id number] SUSANA KHANNA [facility] Allergy [address] [place] [address],[address] [place] [address] 12/27/2023 13:23:10 12/27/2023 14:12:08 Perennial allergic rhinitis [id number] J30.89 [id number] SUSANA KHANNA [facility] Allergy [address] [place] [address],[address] [place] [address] 01/03/2024 13:04:52 01/03/2024 14:58:04 Perennial allergic rhinitis [id number] J30.89 [id number] SONJA WHITE, [facility] Allergy [address] [place] [address],[address] [place] [address] 01/10/2024 14:20:47 01/10/2024 14:24:00 Perennial allergic rhinitis [id number] J30.89 [id number] CORTES WALSH RN Allergy [address] [place] [address],[address] [place] [address] 01/17/2024 13:31:28 01/17/2024 13:33:16 Perennial allergic rhinitis [id number] J30.89 [id number] SUSANA KHANNA [facility] Allergy [address] [place] [address],[address] [place] [address] 01/24/2024 13:48:39 01/24/2024 13:50:25 Perennial allergic rhinitis [id number] J30.89 [id number] SUSANA KHANNA [facility] Allergy 100 [facility],[address] [place] [address] 01/31/2024 14:52:11 01/31/2024 14:53:33 Perennial allergic rhinitis [id number] J30.89 [id number] SONJA CHRISTOPHER, [facility] 100 [facility],[address] [place] [address] 02/07/2024 15:08:33 02/07/2024 15:10:45 Perennial allergic rhinitis [id number] J30.89 [id number] CORTES WALSH RN Allergy 100 [facility],[address] [place] [address] 02/14/2024 13:51:33 02/14/2024 13:52:55 Perennial allergic rhinitis [id number] J30.89 [id number] SONJA CHRISTOPHER, A Allergy 100 [facility] [place],[address] [place] [address] 02/22/2024 13:20:22 02/22/2024 13:23:00 Perennial allergic rhinitis [id number] J30.89 [id number] [facility] All[facility] 100 [facility] [place],[address] [place] [address] 02/28/2024 13:23:03 02/28/2024 13:25:05 Perennial allergic rhinitis [id number] J30.89 [id number] [facility] CHRISTOPHER, [facility] Allergy 100 [facility] [place],[address] [place] [address] 03/06/2024 12:59:46 03/06/2024 13:01:37 Perennial allergic rhinitis [id number] J30.89 [id number] SUSANA KHANNA, [facility] Allergy 100 [facility] [place],[address] [place] [address] 03/13/2024 13:25:49 03/13/2024 13:27:14 Perennial allergic rhinitis [id number] J30.89 [id number] SONJA CHRISTOPHER, [facility] Allergy 100 [facility] [place],[address] [place] [address] 03/20/2024 13:33:55 03/20/2024 13:47:01 Perennial allergic rhinitis [id number] J30.89 [id number] CORTES WALSH RN Allergy 100 [facility] [place],[address] [place] [address] 03/29/2024 12:15:49 03/29/2024 12:17:25 Perennial allergic rhinitis [id number] J30.89 [id number] SUSANA KHANNA, A Allergy 100 [facility],[address] [place] [address] 04/05/2024 13:58:53 04/05/2024 14:00:15 Perennial allergic rhinitis [id number] J30.[id number] [facility], A Allergy 100 [facility],[address] [place] [address] 04/12/2024 14:13:32 04/12/2024 14:15:56 Perennial allergic rhinitis [id number] J30.[id number] [facility], RMA Allergy 100 [facility],[address] [place] [address] 04/17/2024 14:52:03 04/17/2024 14:53:38 Perennial allergic rhinitis [id number] J30.89 [id number] CORTES WALSH RN Allergy [address] [place] [address],[address] [place] [address] 04/26/2024 14:08:32 04/26/2024 14:09:35 Perennial allergic rhinitis [id number] J30.89 [id number] CORTES WALSH RN Allergy [address] [place] [address],[address] [place] [address] 05/01/2024 13:50:10 05/01/2024 13:58:47 Perennial allergic rhinitis [id number] J30.[id number] [facility], A Allergy 100 [facility],[address] [place] [address] 05/08/2024 13:52:18 05/08/2024 13:53:16 Perennial allergic rhinitis [id number] J30.89 [id number] PILO STOUT PA-C [facility] [place] [address] [facility] [place] [address] 05/17/2024 12:46:49 05/17/2024 13:25:42 Perennial allergic rhinitis [id number] J30.89 Snoring [id number] R06.83 [id number] SUSANA KHANNA, A Allergy 100 [facility],[address] [place] [address] 05/15/2024 14:29:21 05/15/2024 14:31:20 Perennial allergic rhinitis [id number] J30.89 [id number] CORTES WALSH RN Allergy [address] [place] [address],[address] [place] [address] 05/22/2024 13:37:40 05/22/2024 13:38:29 Perennial allergic rhinitis [id number] J30.[id number] [facility], [facility] Allergy [address] [place] [address],[address] [place] [address] 05/29/2024 13:52:54 05/29/2024 13:54:35 Perennial allergic rhinitis [id number] J30.[id number] [facility], A Allergy [address] [place] [address],[address] [place] [address] 06/05/2024 14:28:09 06/05/2024 14:29:51 Perennial allergic rhinitis [id number] J30.89 [id number] CORTES WALSH RN Allergy [address] [place] [address], [address] [place] [address] 06/12/2024 14:45:26 06/12/2024 14:50:18 Perennial allergic rhinitis [id number] J30.89 [id number] SUSANA KHANNA [facility] Allergy [address] [place] [address],[address] [place] [address] 06/19/2024 13:46:05 06/19/2024 13:59:57 Perennial allergic rhinitis [id number] J30.89 [id number] SUSANA KHANNA A Allergy [address] [place] [address],[address] [place] [address] 06/26/2024 13:06:46 06/26/2024 13:08:13 Perennial allergic rhinitis [id number] J30.89 [id number] SUSANA KHANNA A Allergy [address] [place] [address],[address] [place] [address] 07/03/2024 13:11:54 07/03/2024 13:12:48 Perennial allergic rhinitis [id number] J30.89 [id number] SUSANA KHANNA A Allergy [address] [place] [address],[address] [place] [address] 07/10/2024 13:22:10 07/10/2024 13:23:32 Perennial allergic rhinitis [id number] J30.89 [id number] CORTES WALSH RN Allergy [address] [place] [address],[address] [place] [address] 07/17/2024 13:07:42 07/17/2024 13:08:47 Perennial allergic rhinitis [id number] J30.89 [id number] CORTES WALSH RN Allergy [address] [place] [address], [address] [place] [address] 07/24/2024 14:02:27 07/24/2024 14:04:11 Perennial allergic rhinitis [id number] J30.89 [id number] SUSANA KHANNA [facility] Allergy [address] [place] [address],[facility] [place] [address] 08/07/2024 13:15:21 08/07/2024 13:16:48 Perennial allergic rhinitis [id number] J30.89 [id number] SUSANA KHANNA [facility] Allergy [address] [place] [address] [address] [place] [address] 08/21/2024 13:10:09 08/21/2024 13:19:25 Perennial allergic rhinitis [id number] J30.89 [id number] SUSANA KHANNA, [facility] Allergy [address] [place], [place] [address] [address] [place] [address] 09/04/2024 13:16:52 09/04/2024 13:18:22 Perennial allergic rhinitis [id number] J30.89 [id number] SUSANA KHANNA [facility] Allergy [address] [place] [address],[address] [place] [address] 09/18/2024 13:59:13 09/18/2024 14:00:48 Perennial allergic rhinitis [id number] J30.89 [id number] SUSANA KHANNA [facility] Allergy [address] [place] [address], [address] [place] [address] 10/02/2024 13:56:22 10/02/2024 13:59:31 Perennial allergic rhinitis [id number] J30.89 [id number] SONJA OH, A Allergy [address] [place] [address] 10/16/2024 13:13:51 10/16/2024 13:15:08 Perennial allergic rhinitis [id number] J30.89 [id number] SONJA CHRISTOPHER, [facility] Allergy 100 [facility],[address] [place] [address] 10/30/2024 13:21:28 10/30/2024 13:23:09 Perennial allergic rhinitis [id number] J30.89 [id number] SUSANA KHANNA, [facility] Allergy 100 [facility],[address] [place] [address] 11/13/2024 13:13:26 11/13/2024 13:14:15 Perennial allergic rhinitis [id number] J30.89 [id number] SUSANA KHANNA [facility] Allergy [address] [place] [address],[address] [place] [address] 11/27/2024 13:27:40 11/27/2024 13:29:02 Perennial allergic rhinitis [id number] J30.89 [id number] CORTES WALSH RN Allergy 100 [facility], [address] [place] [address] 12/11/2024 13:40:11 12/11/2024 13:41:30 Perennial allergic rhinitis [id number] J30.[id number] [facility], [facility] Allergy 100 [facility],[address] [place] [address] 12/25/2024 13:38:37 12/25/2024 13:40:04 Perennial allergic rhinitis [id number] J30.89 [id number] BEN QUIGLEY PA-C [facility] [place] [address] [facility] [place] [address] 12/30/2024 11:12:44 12/30/2024 11:30:01 Allergic rhinitis 46846997 J30.89 Health Concerns Section Related Observation LastModified by Organization Detai ls LastModified Time None Recorded Concern Status LastModified by Organization Details LastModified Time None Recorded Advance Directives Directive None Recorded Payers Insurance Date Sequence Insurance Name Policy Number Policy Miller Covered Member ID Miller Member ID Guarantor Name 02/06/2025 2 [facility] - HEALTH NET PLAN (MEDICAID HMO[facility] [id number] Luis Hu 02/06/2025 2 [place] [facility] Luis Hu [id number] Luis Hu 02/06/2025 1 MEDICARE B-[place]: [facility] Luis Hu [id number] Luis Hu Notes Date Note Type Note Provider Name and Address Organization Details Recorded Time 12/30/2024 text/html ROS as noted in the HPI 39-year-old male with allergic rhinitis and asthma presents for routine 6-month follow-up. He has been undergoing subcutaneous immunotherapy since 01/2023. He reports significant symptom improvement since starting allergy shots. He only requires nebulizer once every 2 months. Reports occasional nasal congestion, which is well-managed with fluticasone as needed. He also endorses weekly facial pressure around the cheeks, without anosmia, nasal drainage, or headache otherwise. NAGA SIN MD [address] [place] [address], [id number], [facility] 12/30/2024 12:01:49
== END 2025-02-11 13:59 | disposition home or self-care (01) ==
LOC: HO.HAP 13:58
PROVIDERS: Visit Provider Physician Assistant
DX: Z13.89 Encounter for screening for other disorder (principal)

== ENCOUNTER 2025-03-18 10:08 | Outpatient (REF) | payer MEDICARE, MEDICAID, SELFPAY | END 2025-03-18 10:09 | disposition home or self-care (01) | LOC: HO.HAP 10:08 | PROVIDERS: Visit Provider Physician Assistant | DX: H90.3 Sensorineural hearing loss, bilateral (principal) | CPT/HCPCS: 92593 ==